=== PATIENT | female | born 1965 | race Caucasian/White ===

== ENCOUNTER 2020-01-05 07:10 | Outpatient (CLI) | payer OTHER, SELFPAY ==
[2020-01-05 08:27] LABS: Basophils Absolute Auto 0.1 K/mm3 (0.0-0.1); Basophils Percent Auto 0.8 % (0.2-1.2); Eosinophils Absolute Auto 0.3 K/mm3 (0-0.3); Eosinophils Percent Auto 3.6 % (0-4.4); Hematocrit 42.9 % (37.0-47.0); Hemoglobin 14.6 g/dL (12.0-15.0); Immature Granulocyte Absolute 0.04 K/mm3 (0.00-0.031); Immature Granulocyte Percent A 0.5 % (0-0.5); Lymphocytes Absolute Auto 1.48 K/mm3 (0.9-3.2); Lymphocytes Percent Auto 20.3 % (18.3-44.2); Mean Corpuscular Volume 91.1 fl (80-100); Mean Platelet Volume 9.1 fl (7.4-10.4); Monocytes Absolute Auto 0.7 K/mm3 (0.1-0.6); Monocytes Percent Auto 9.8 % (2.6-8.5); Neutrophils Absolute Auto 4.7 K/mm3 (1.3-6.7); Platelet Count Result 289 k/mm3 (150-375); Red Blood Count 4.71 M/mm3 (4.2-5.4); Red Cell Distribution Width 13.4 % (11.5-14.5); White Blood Count 7.3 K/mm3 (4.5-10.0)
[2020-01-05 09:54] LABS: Alanine Aminotransferase 33 U/L (4-35); Albumin Level 4.5 g/dL (3.5-5.1); Alkaline Phosphatase 62 U/L (38-126); Aspartate Amino Transferase 37 U/L (14-36); Bilirubin,Total 0.4 mg/dL (0.2-1.3); Blood Urea Nitrogen 16 mg/dL (7-17); Calcium 8.8 mg/dL (8.4-10.2); Carbon Dioxide 27 mmol/L (22-30); Chloride 102 mmol/L (98-107); Cholesterol 198 mg/dL (0-200); Estimated Glomerular Filt Rate 58; Glucose 126 mg/dL (65-105); HDL Direct 45 mg/dL; Magnesium 2.1 mg/dL (1.6-2.3); Potassium 4.5 mmol/L (3.4-5.0); Sodium 140 mmol/L (137-145); Triglycerides 129 mg/dL (<150)
[2020-01-05 10:05] LABS: LDL Cholesterol Direct 134 mg/dL
[2020-01-05 18:11] LABS: Iron 99 ug/dL (37-170)
[2020-01-05 18:25] LABS: Percent Iron Saturation 28 % (20-50)
[2020-01-05 18:27] LABS: Hemoglobin A1C 6.3 % (<5.7)
[2020-01-05 19:28] LABS: Vitamin D 25 Hydroxy 48.9 ng/mL
[2020-01-08 04:06] LABS: Ionized Calcium 4.7 mg/dL (4.8-5.6)
== END 2020-01-05 07:11 | disposition home or self-care (01) ==
LOC: ANHLAB 07:16
PROVIDERS: PCP Internal Medicine; Visit Provider Clinical Nurse Specialist
DX: Z00.00 Encounter for general adult medical examination without abnormal findings (principal); E11.9 Type 2 diabetes mellitus without complications; E55.9 Vitamin D deficiency, unspecified; E07.9 Disorder of thyroid, unspecified; Z13.220 Encounter for screening for lipoid disorders
CPT/HCPCS: 36415; 80053; 80061; 82306; 82330; 82728; 83036; 83540; 83550; 83735; 84439; 84443; 85025

== ENCOUNTER 2020-04-26 09:48 | Outpatient (CLI) | payer OTHER, SELFPAY ==
[2020-04-26 11:07] LABS: Alanine Aminotransferase 21 U/L (4-35); Albumin Level 4.3 g/dL (3.5-5.1); Alkaline Phosphatase 50 U/L (38-126); Anion Gap 8 mmol/L (8-16); Aspartate Amino Transferase 26 U/L (14-36); Bilirubin,Total 0.6 mg/dL (0.2-1.3); Blood Urea Nitrogen 18 mg/dL (7-17); Calcium 8.7 mg/dL (8.4-10.2); Carbon Dioxide 29 mmol/L (22-30); Chloride 104 mmol/L (98-107); Estimated Glomerular Filt Rate 58; Glucose 115 mg/dL (65-105); Potassium 4.4 mmol/L (3.4-5.0); Sodium 141 mmol/L (137-145)
[2020-04-26 11:26] LABS: Hemoglobin A1C 5.7 % (<5.7)
== END 2020-04-26 09:49 | disposition home or self-care (01) ==
LOC: ANHLAB 09:51
PROVIDERS: Internal Medicine Cardiovascular Disease; PCP Internal Medicine; Visit Provider Internal Medicine
DX: E78.5 Hyperlipidemia, unspecified (principal)
CPT/HCPCS: 36415; 80053; 83036

== ENCOUNTER 2020-05-10 10:05 | Outpatient (CLI) | payer OTHER, SELFPAY ==
[2020-05-10 10:54] LABS: Cholesterol 200 mg/dL (0-200); HDL Direct 43 mg/dL; Triglycerides 157 mg/dL (<150)
[2020-05-10 10:55] LABS: Albumin Level 4.3 g/dL (3.5-5.1); Anion Gap 8 mmol/L (8-16); Blood Urea Nitrogen 18 mg/dL (7-17); Calcium 8.7 mg/dL (8.4-10.2); Carbon Dioxide 25 mmol/L (22-30); Chloride 106 mmol/L (98-107); Estimated Glomerular Filt Rate > 60; Glucose 112 mg/dL (65-105); Phosphorus 4.2 mg/dL (2.5-4.5); Potassium 4.2 mmol/L (3.4-5.0); Sodium 139 mmol/L (137-145)
[2020-05-10 11:05] LABS: LDL Cholesterol Direct 126 mg/dL
[2020-05-10 11:27] LABS: Free T4 Free Thyroxine 1.27 ng/mL (0.78-2.19); Vitamin D 25 Hydroxy 54.1 ng/mL
[2020-05-13 04:55] LABS: Ionized Calcium 4.7 mg/dL (4.8-5.6)
== END 2020-05-10 10:06 | disposition home or self-care (01) ==
PROVIDERS: Internal Medicine Endocrinology, Diabetes & Metabolism; PCP Internal Medicine; Visit Provider Internal Medicine Cardiovascular Disease
DX: E78.5 Hyperlipidemia, unspecified (principal); E07.9 Disorder of thyroid, unspecified; E83.51 Hypocalcemia; E04.9 Nontoxic goiter, unspecified
CPT/HCPCS: 36415; 80061; 80069; 82306; 82330; 84439; 84443; 84481

== ENCOUNTER 2020-05-21 06:37 | Outpatient (CLI) | payer OTHER, SELFPAY ==
[2020-05-21 11:49] LABS: Creatinine Urine 65.2 mg/dL
[2020-05-21 12:22] LABS: Creatinine 24 Hour Urine 1.5 gm/24 (0.8-1.8); Total Volume 24 Hour Urine 2400 ml
[2020-05-24 20:44] LABS: Total Volume 2400 mL; Urine Calcium 8.5 mg/dL
== END 2020-05-21 06:38 | disposition home or self-care (01) ==
PROVIDERS: PCP Internal Medicine; Visit Provider Internal Medicine Endocrinology, Diabetes & Metabolism
DX: E07.9 Disorder of thyroid, unspecified (principal); E83.51 Hypocalcemia
CPT/HCPCS: 81050; 82340; 82570

== ENCOUNTER 2020-07-24 11:07 | Outpatient (CLI) | payer OTHER, SELFPAY ==
--- NOTE | ~2020-07-24 | XR_ITS ---
EXAMINATION: XR foot LT standing 2V, XR foot RT standing 2V DATE: 07/24/2020 12:06 INDICATION: Rheumatoid arthritis TECHNIQUE: 1. Standing dorsal plantar and lateral views of the left foot were obtained. 2. Standing dorsal plantar and lateral views of the right foot were obtained. COMPARISON: None. FINDINGS: Normal alignment at the left foot. Minimal right pes planus with slight flattening of the longitudina l arch. No fractures. Minimal to mild polyarticular osteoarthritis at a few bilateral tarsometatarsal , metatarsophalangeal and interphalangeal joints. Bilateral bunionettes with focal soft tissue swelli ng about the lateral margin of the heads of the bilateral fifth metatarsals. No cortical erosions or periosteal reaction. Small to moderate bilateral plantar calcaneal spurs and small right Achilles neha caneal spur. Soft tissues are otherwise unremarkable with no ankle joint effusions. IMPRESSION: 1. Minimal to mild polyarticular osteoarthritis at the bilateral mid and forefeet and bilateral calca osmani enthesophytes. 2. No erosions to suggest inflammatory arthritis such as rheumatoid. Reviewed, dictated and finalized at location A. WPF DEVELOPER IMPRESSION: 1. Minimal to mild polyarticular osteoarthritis at the bilateral mid and forefe et and bilateral calcaneal enthesophytes. 2. No erosions to suggest inflammatory arthritis such as rheumatoid.
--- NOTE | ~2020-07-24 | XR_ITS ---
EXAMINATION: XR hand BI arthritis min 3V DATE: 07/24/2020 12:05 INDICATION: Unspecified osteoarthritis, unspecified site TECHNIQUE: Posteroanterior, lateral, and oblique views of the left and of the right hands as well as a ballcatchers view of both hands were obtained. COMPARISON: None. FINDINGS: There is mild polyarticular osteoarthritis both hands involving the interphalangeal joints, metacarpo phalangeal joints, and the first carpometacarpal joints. No abnormal erosion is identified. Bone alig nment is normal. The soft tissues are unremarkable. There is no fracture. IMPRESSION: 1. Polyarticular osteoarthritis. Reviewed, dictated and finalized at location A. S REPRESENTATIVE GIRLS' APPAREL
--- NOTE | ~2020-07-24 | XR_ITS ---
EXAMINATION: XR knee RT min 4V DATE: 07/24/2020 12:05 INDICATION: Rheumatoid arthritis, unspecified. TECHNIQUE: 4 views of right knee were obtained. COMPARISON: None. FINDINGS: Bone alignment is normal. No fracture. There is moderate osteoarthritis of medial compartme nt and mild osteoarthritis of lateral and patellofemoral compartments. No knee joint effusion. IMPRESSION: 1. Moderate right knee osteoarthritis. Reviewed, dictated and finalized at location B. APPLICATION SUPPORT SPECIALIST
--- NOTE | ~2020-07-24 | XR_ITS ---
EXAMINATION: XR lumbar spine min 4V DATE: 07/24/2020 12:05 INDICATION: Rheumatoid arthritis TECHNIQUE: Anteroposterior, lateral, and bilateral oblique views of the lumbar spine, and cone-down l ateral view of the lumbosacral junction were obtained. COMPARISON: None. FINDINGS: There are 6 mm of anterolisthesis of L3 on L4 and L4 on L5. The vertebral body heights are maintained. There is mild loss of intervertebral disc space height at L4-5 and moderate loss of inter vertebral disc space height at L5-S1. No fracture is identified. There is moderate facet osteoarthrit is of the lower lumbar spine. Changes of mesh ventral hernia repair are noted. Surgical clips in the right upper quadrant are likely from prior cholecystectomy. The bowel gas pattern is normal. IMPRESSION: 1. Mild to moderate lumbar spondylosis without acute findings. Reviewed, dictated and finalized at location A. S DIRECTOR
[2020-07-24 11:40] LABS: Basophils Absolute Auto 0.1 K/mm3 (0.0-0.1); Basophils Percent Auto 0.9 % (0.2-1.2); Eosinophils Absolute Auto 0.2 K/mm3 (0-0.3); Eosinophils Percent Auto 2.7 % (0-4.4); Hematocrit 42.1 % (37.0-47.0); Hemoglobin 14.4 g/dL (12.0-15.0); Immature Granulocyte Absolute 0.03 K/mm3 (0.00-0.031); Immature Granulocyte Percent A 0.4 % (0-0.5); Lymphocytes Percent Auto 19.4 % (18.3-44.2); Mean Corpuscular HGB Conc 34.2 g/dl (32-36); Mean Corpuscular Hemoglobin 31.6 pg (26-34); Mean Corpuscular Volume 92.5 fl (80-100); Mean Platelet Volume 8.8 fl (7.4-10.4); Monocytes Absolute Auto 0.6 K/mm3 (0.1-0.6); Monocytes Percent Auto 8.2 % (2.6-8.5); Neutrophils Absolute Auto 4.6 K/mm3 (1.3-6.7); Neutrophils Percent Auto 68.4 % (45.5-73.1); Platelet Count Result 251 k/mm3 (150-375); Red Blood Count 4.55 M/mm3 (4.2-5.4); Red Cell Distribution Width 13.3 % (11.5-14.5); White Blood Count 6.7 K/mm3 (4.5-10.0)
[2020-07-24 11:44] LABS: Add Urine Microscopic? NO; Appearance Urine Clear (Clear); Bilirubin Urine Negative (Negative); Blood Urine Negative (Negative); Color Urine Straw (Yellow); Glucose Urine UA Negative (Negative); Ketones Urine Negative (Negative); Leukocyte Esterase Ur Negative LEU/UL (Negative); Nitrate Urine Negative (Negative); Protein Urine Negative (Negative); Specific Grav Ur 1.009 (1.001-1.035); Urobilinogen Urine Negative mg/dL (<2.0)
[2020-07-24 11:58] LABS: Alanine Aminotransferase 23 U/L (4-35); Albumin Level 4.6 g/dL (3.5-5.1); Alkaline Phosphatase 52 U/L (38-126); Anion Gap 7 mmol/L (8-16); Aspartate Amino Transferase 31 U/L (14-36); Bilirubin,Total 0.6 mg/dL (0.2-1.3); Blood Urea Nitrogen 17 mg/dL (7-17); CRP 0.9 mg/dL (<1.0); Calcium 9.3 mg/dL (8.4-10.2); Carbon Dioxide 32 mmol/L (22-30); Chloride 102 mmol/L (98-107); Estimated Glomerular Filt Rate > 60; Glucose 103 mg/dL (65-105); Potassium 4.7 mmol/L (3.4-5.0); Sodium 141 mmol/L (137-145); Uric Acid 6.4 mg/dL (2.5-7.5)
[2020-07-24 12:31] LABS: Rheumatoid Factor > 120.0 IU/ML (<12)
[2020-07-24 12:58] LABS: Vitamin D 25 Hydroxy 56.3 ng/mL
[2020-07-24 13:13] LABS: Erythrocyte Sedimentation Rate 22 mm/hr (0-20)
[2020-07-24 13:14] LABS: Hepatitis B Surface Antigen Negative (Negative)
[2020-07-24 13:37] LABS: Hepatitis B Surface Anti Res Positive; Hepatitis C Virus Antibody Negative (Negative)
[2020-07-26 22:13] LABS: Anti Cyclic Citrullinated Pept >250 Units (<20)
[2020-07-29 13:37] LABS: Anti Nuclear Antibody Titer >=1:1280 (Negative)
== END 2020-07-24 11:08 | disposition home or self-care (01) ==
PROVIDERS: PCP Internal Medicine; Visit Provider Internal Medicine
DX: M06.9 Rheumatoid arthritis, unspecified (principal); M19.041 Primary osteoarthritis, right hand; M19.042 Primary osteoarthritis, left hand; M47.896 Other spondylosis, lumbar region; M17.11 Unilateral primary osteoarthritis, right knee
CPT/HCPCS: 36415; 72110; 73130; 73564; 73620; 80053; 81003; 82306; 84550; 85025; 85652; 86038; 86039; 86140; 86200; 86430; 86480; 86706; 86803; 87340

== ENCOUNTER 2020-08-21 10:02 | Outpatient (CLI) | payer OTHER, SELFPAY ==
[2020-08-21 10:29] LABS: Alanine Aminotransferase 21 U/L (4-35); Albumin Level 4.1 g/dL (3.5-5.1); Alkaline Phosphatase 49 U/L (38-126); Anion Gap 6 mmol/L (8-16); Aspartate Amino Transferase 26 U/L (14-36); Bilirubin,Total 0.4 mg/dL (0.2-1.3); Blood Urea Nitrogen 16 mg/dL (7-17); Calcium 8.2 mg/dL (8.4-10.2); Carbon Dioxide 31 mmol/L (22-30); Chloride 104 mmol/L (98-107); Cholesterol 156 mg/dL (0-200); Estimated Glomerular Filt Rate > 60; Glucose 113 mg/dL (65-105); HDL Direct 45 mg/dL; Potassium 4.1 mmol/L (3.4-5.0); Sodium 141 mmol/L (137-145); Triglycerides 70 mg/dL (<150)
[2020-08-21 10:40] LABS: LDL Cholesterol Direct 99 mg/dL
== END 2020-08-21 10:03 | disposition home or self-care (01) ==
PROVIDERS: PCP Internal Medicine; Visit Provider Internal Medicine Cardiovascular Disease
DX: I21.9 Acute myocardial infarction, unspecified (principal); I10 Essential (primary) hypertension; I25.10 Atherosclerotic heart disease of native coronary artery without angina pectoris
CPT/HCPCS: 36415; 80053; 80061

== ENCOUNTER 2020-10-03 07:35 | Outpatient (CLI) | payer OTHER, SELFPAY ==
[2020-10-03 07:56] LABS: Albumin Level 4.3 g/dL (3.5-5.1); Anion Gap 9 mmol/L (8-16); Blood Urea Nitrogen 16 mg/dL (7-17); Calcium 8.2 mg/dL (8.4-10.2); Carbon Dioxide 31 mmol/L (22-30); Chloride 103 mmol/L (98-107); Estimated Glomerular Filt Rate 57; Glucose 130 mg/dL (65-105); Phosphorus 4.8 mg/dL (2.5-4.5); Potassium 4.5 mmol/L (3.4-5.0); Sodium 143 mmol/L (137-145)
[2020-10-03 09:07] LABS: Vitamin D 25 Hydroxy 53.1 ng/mL
== END 2020-10-03 07:36 | disposition home or self-care (01) ==
PROVIDERS: PCP Internal Medicine; Visit Provider Internal Medicine Endocrinology, Diabetes & Metabolism
DX: E89.2 Postprocedural hypoparathyroidism (principal); E89.0 Postprocedural hypothyroidism
CPT/HCPCS: 36415; 80069; 82306; 84439; 84443

== ENCOUNTER 2021-02-26 06:38 | Outpatient (CLI) | payer OTHER, SELFPAY ==
[2021-02-26 07:37] LABS: Alanine Aminotransferase 24 U/L (4-35); Albumin Level 4.4 g/dL (3.5-5.1); Alkaline Phosphatase 55 U/L (38-126); Anion Gap 10 mmol/L (8-16); Aspartate Amino Transferase 30 U/L (14-36); Bilirubin,Total 0.6 mg/dL (0.2-1.3); Blood Urea Nitrogen 16 mg/dL (7-17); Calcium 8.6 mg/dL (8.4-10.2); Carbon Dioxide 26 mmol/L (22-30); Chloride 105 mmol/L (98-107); Cholesterol 172 mg/dL (0-200); Estimated Glomerular Filt Rate 57; Glucose 127 mg/dL (65-105); HDL Direct 48 mg/dL; Potassium 4.4 mmol/L (3.4-5.0); Sodium 141 mmol/L (137-145); Triglycerides 157 mg/dL (<150)
[2021-02-26 07:47] LABS: LDL Cholesterol Direct 95 mg/dL
== END 2021-02-26 06:39 | disposition home or self-care (01) ==
PROVIDERS: PCP Internal Medicine; Visit Provider Internal Medicine Cardiovascular Disease
DX: E78.5 Hyperlipidemia, unspecified (principal); I10 Essential (primary) hypertension
CPT/HCPCS: 36415; 80053; 80061

== ENCOUNTER 2021-04-02 09:33 | Outpatient (CLI) | payer OTHER, SELFPAY ==
[2021-04-02 11:03] LABS: Basophils Absolute Auto 0.1 K/mm3 (0.0-0.1); Basophils Percent Auto 0.9 % (0.2-1.2); Eosinophils Absolute Auto 0.2 K/mm3 (0-0.3); Eosinophils Percent Auto 3.4 % (0-4.4); Hematocrit 42.5 % (37.0-47.0); Hemoglobin 14.2 g/dL (12.0-15.0); Immature Granulocyte Absolute 0.04 K/mm3 (0.00-0.031); Immature Granulocyte Percent A 0.6 % (0-0.5); Lymphocytes Absolute Auto 1.15 K/mm3 (0.9-3.2); Lymphocytes Percent Auto 16.8 % (18.3-44.2); Mean Corpuscular HGB Conc 33.4 g/dl (32-36); Mean Corpuscular Hemoglobin 31.4 pg (26-34); Monocytes Absolute Auto 0.7 K/mm3 (0.1-0.6); Monocytes Percent Auto 10.2 % (2.6-8.5); Neutrophils Absolute Auto 4.7 K/mm3 (1.3-6.7); Neutrophils Percent Auto 68.1 % (45.5-73.1); Platelet Count Result 253 k/mm3 (150-375); Red Blood Count 4.52 M/mm3 (4.2-5.4); Red Cell Distribution Width 13.4 % (11.5-14.5); White Blood Count 6.9 K/mm3 (4.5-10.0)
[2021-04-02 11:28] LABS: Alanine Aminotransferase 26 U/L (4-35); Albumin Level 4.5 g/dL (3.5-5.1); Alkaline Phosphatase 53 U/L (38-126); Anion Gap 8 mmol/L (8-16); Aspartate Amino Transferase 30 U/L (14-36); Bilirubin,Total 0.3 mg/dL (0.2-1.3); Blood Urea Nitrogen 15 mg/dL (7-17); CRP 0.9 mg/dL (<1.0); Calcium 8.2 mg/dL (8.4-10.2); Carbon Dioxide 28 mmol/L (22-30); Chloride 102 mmol/L (98-107); Estimated Glomerular Filt Rate > 60; Glucose 115 mg/dL (65-110); Potassium 4.4 mmol/L (3.4-5.0); Sodium 138 mmol/L (137-145)
== END 2021-04-02 09:34 | disposition home or self-care (01) ==
LOC: ANHLAB 09:36
PROVIDERS: PCP Internal Medicine; Visit Provider Internal Medicine
DX: M17.0 Bilateral primary osteoarthritis of knee (principal); M05.79 Rheumatoid arthritis with rheumatoid factor of multiple sites without organ or systems involvement; M54.5 Low back pain; G89.29 Other chronic pain
CPT/HCPCS: 36415; 80053; 85025; 86140

== ENCOUNTER 2021-04-30 09:54 | Outpatient (CLI) | payer OTHER, SELFPAY ==
[2021-04-30 10:39] LABS: Basophils Absolute Auto 0.1 K/mm3 (0.0-0.1); Basophils Percent Auto 0.7 % (0.2-1.2); Eosinophils Absolute Auto 0.2 K/mm3 (0-0.3); Eosinophils Percent Auto 2.6 % (0-4.4); Hematocrit 44.3 % (37.0-47.0); Hemoglobin 14.9 g/dL (12.0-15.0); Immature Granulocyte Absolute 0.03 K/mm3 (0.00-0.031); Immature Granulocyte Percent A 0.4 % (0-0.5); Lymphocytes Percent Auto 16.5 % (18.3-44.2); Mean Corpuscular HGB Conc 33.6 g/dl (32-36); Mean Corpuscular Hemoglobin 31.4 pg (26-34); Mean Corpuscular Volume 93.3 fl (80-100); Mean Platelet Volume 8.5 fl (7.4-10.4); Monocytes Absolute Auto 0.7 K/mm3 (0.1-0.6); Monocytes Percent Auto 9.7 % (2.6-8.5); Neutrophils Absolute Auto 5.1 K/mm3 (1.3-6.7); Neutrophils Percent Auto 70.1 % (45.5-73.1); Platelet Count Result 259 k/mm3 (150-375); Red Blood Count 4.75 M/mm3 (4.2-5.4); Red Cell Distribution Width 13.7 % (11.5-14.5); White Blood Count 7.3 K/mm3 (4.5-10.0)
[2021-04-30 10:56] LABS: Alanine Aminotransferase 26 U/L (4-35); Albumin Level 4.7 g/dL (3.5-5.1); Alkaline Phosphatase 57 U/L (38-126); Anion Gap 13 mmol/L (8-16); Aspartate Amino Transferase 30 U/L (14-36); Bilirubin,Total 0.5 mg/dL (0.2-1.3); Blood Urea Nitrogen 19 mg/dL (7-17); Calcium 9.1 mg/dL (8.4-10.2); Carbon Dioxide 25 mmol/L (22-30); Chloride 104 mmol/L (98-107); Cholesterol 190 mg/dL (0-200); Estimated Glomerular Filt Rate 57; Glucose 133 mg/dL (65-110); HDL Direct 53 mg/dL; Potassium 4.8 mmol/L (3.4-5.0); Sodium 142 mmol/L (137-145); Triglycerides 133 mg/dL (<150)
[2021-04-30 11:07] LABS: LDL Cholesterol Direct 106 mg/dL
[2021-04-30 11:26] LABS: Vitamin D 25 Hydroxy 63.9 ng/mL
[2021-04-30 17:23] LABS: Hemoglobin A1C 6.2 % (<5.7)
== END 2021-04-30 09:55 | disposition home or self-care (01) ==
PROVIDERS: PCP Internal Medicine; Visit Provider Nurse Practitioner
DX: E03.9 Hypothyroidism, unspecified (principal); I10 Essential (primary) hypertension; E78.5 Hyperlipidemia, unspecified; E55.9 Vitamin D deficiency, unspecified
CPT/HCPCS: 36415; 80053; 80061; 82306; 83036; 84443; 85025

== ENCOUNTER 2021-06-06 08:11 | Outpatient (CLI) | payer OTHER, SELFPAY ==
--- NOTE | ~2021-06-06 | MM_ITS ---
EXAMINATION: MM screening yudith BI w emily HISTORY: Screening mammogram TECHNIQUE: Craniocaudal and mediolateral oblique 3-D tomosynthesis images were obtained and synthetic 2-D images were generated. CAD analysis was submitted and interpreted. COMPARISON: No prior mammogram is available for comparison at this institution. BREAST PARENCHYMAL COMPOSITION: The breasts are almost entirely fatty. FINDINGS: There is no evidence of suspicious mass, calcification, or architectural distortion to sugg est malignancy in either breast. There has been no suspicious interval change. IMPRESSION: 1. No mammographic evidence of malignancy. 2. Recommend routine screening mammography in one year. BI-RADS Category 1: Negative Reviewed, dictated and finalized at location C.
--- NOTE | ~2021-06-06 | CT_ITS ---
EXAMINATION: CT lung screening DATE: 06/06/2021 09:08 INDICATION: Former smoker. TECHNIQUE: Computed tomography (CT) of the chest was performed without intravenous contrast. The dose -length product was 230.31 mGy-cm. Automated exposure control and iterative reconstruction technique were employed. COMPARISON: Chest dated 10/26/2019 FINDINGS: Moderate size hiatal hernia. There are cholecystectomy clips. No significant pleural or per icardial effusion. Heart size is normal. There is atherosclerosis of the aorta and coronary arteries. There is emphysema. No endobronchial lesions. There is a 4 mm right lower lobe nodule, image 76. The re is a 7 mm left apical nodule, image 21. There is a calcified nodule superior segment right lower l obe, consistent with chronic granulomatous disease. Mild thoracic spondylosis. No focal consolidation to suggest pneumonia. No pneumothorax. IMPRESSION: 1. Lung-RADS category 3: Probably benign. Further evaluation is recommended with noncontrast low-dose chest CT in 6 months. Reviewed, dictated and finalized at location B. IMPRESSION: 1. Lung-RADS category 3: Probably benign. Further evaluation is recommended wit h noncontrast low-dose chest CT in 6 months.
== END 2021-06-06 08:12 | disposition home or self-care (01) ==
LOC: ANHIMG 08:13
PROVIDERS: PCP Internal Medicine; Visit Provider Nurse Practitioner
DX: Z12.31 Encounter for screening mammogram for malignant neoplasm of breast (principal); Z87.891 Personal history of nicotine dependence; R91.8 Other nonspecific abnormal finding of lung field
CPT/HCPCS: 71271; 77063; 77067

== ENCOUNTER 2021-06-18 21:01 | Emergency (ER) | payer OTHER, SELFPAY ==
--- NOTE | ~2021-06-18 | CT_ITS ---
EXAMINATION: CT abdomen pelvis wo con DATE: 06/18/2021 23:39 INDICATION: Right flank pain TECHNIQUE: Computed tomography (CT) of the abdomen and pelvis was performed without intravenous contr ast. Automated exposure control and iterative reconstruction technique were employed. Exam dose: 141 8.32 mGy-cm total exam DLP. COMPARISON: None. FINDINGS: Approximately 3 mm 4 mm nonspecific right lower lobe pulmonary nodules are noted (series 4 images 6 a nd 8). Occasional middle lobe calcified pulmonary granulomas. Normal heart size. No pericardial or pleural effusion. Mild to moderate sliding hiatal hernia. Status post cholecystectomy. The liver, spleen, pancreas, and adrenal glands and kidneys are unremarkable on this limited noncontr ast examination. No bile duct or pancreatic duct dilatation. No urinary tract calculus or hydroureteronephrosis. The urinary bladder, uterus and adnexal areas are unremarkable. There is calcification but normal caliber of the abdominal aorta and iliac arteries. No intraperitone al or retroperitoneal or pelvic mass lesion or adenopathy or ascites. Diverticulosis of left and right colon; no CT evidence of diverticulitis. No bowel obstruction, bowel wall thickening, pneumatosis or intraperitoneal free air. Status post ventral abdominal and pelvic wall mesh repair. Transitional lumbosacral vertebra. Degenerative changes of the lower thoracic spine and lumbar spine, particularly the lumbar apophyseal joints, with associated grade 1 anterolisthesis at L4-5 and L5-S1. No suspicious osteolytic or osteoblastic lesions are noted. Bilateral hip osteoarthritis. IMPRESSION: No urinary tract calculus or hydroureteronephrosis Status post cholecystectomy Mild to moderate sliding hiatal hernia Diverticulosis of the colon; no CT evidence of diverticulitis Status post ventral abdominal and pelvic wall mesh repair Reviewed, dictated and finalized at Location A. Reviewed, dictated and finalized at location A.
[2021-06-18 21:20] VITALS: BP 143/73; PULSE 73; RESP 16; TEMP 36.7; O2SAT 99
[2021-06-18 23:26] LABS: Add Urine Microscopic? NO; Appearance Urine Clear (Clear); Bilirubin Urine Negative (Negative); Blood Urine Negative (Negative); Color Urine Straw (Yellow); Glucose Urine UA Negative (Negative); Ketones Urine Negative (Negative); Leukocyte Esterase Ur Negative LEU/UL (Negative); Nitrate Urine Negative (Negative); Protein Urine Negative (Negative); Specific Grav Ur 1.005 (1.001-1.035); Urobilinogen Urine Negative mg/dL (<2.0)
--- NOTE | 2021-06-18 23:42 | PC.NURSE ---
Pt to CT at this time.
[2021-06-18 23:50] VITALS: BP 140/79; PULSE 71; RESP 18; O2SAT 100
[2021-06-18] MEDS: KETOROLAC 15 MG/ML VIAL (*BKC) IV PUSH (23:50)
[2021-06-18] MEDS: ONDANSETRON INJ 4 MG/2 ML VIAL IV PUSH (23:50)
[2021-06-18] MEDS: SODIUM CHLORIDE 0.9% IV 1,000 ML 999 ML IV CONT (23:51)
[2021-06-19 00:04] LABS: Basophils Absolute Auto 0.1 K/mm3 (0.0-0.1); Basophils Percent Auto 0.6 % (0.2-1.2); Eosinophils Absolute Auto 0.2 K/mm3 (0-0.3); Eosinophils Percent Auto 2.5 % (0-4.4); Hematocrit 40.1 % (37.0-47.0); Hemoglobin 13.6 g/dL (12.0-15.0); Immature Granulocyte Absolute 0.04 K/mm3 (0.00-0.031); Immature Granulocyte Percent A 0.5 % (0-0.5); Lymphocytes Absolute Auto 1.33 K/mm3 (0.9-3.2); Lymphocytes Percent Auto 15.1 % (18.3-44.2); Mean Corpuscular HGB Conc 33.9 g/dl (32-36); Mean Corpuscular Hemoglobin 33.3 pg (26-34); Mean Platelet Volume 8.8 fl (7.4-10.4); Monocytes Absolute Auto 0.8 K/mm3 (0.1-0.6); Monocytes Percent Auto 8.9 % (2.6-8.5); Neutrophils Absolute Auto 6.4 K/mm3 (1.3-6.7); Neutrophils Percent Auto 72.4 % (45.5-73.1); Platelet Count Result 262 k/mm3 (150-375); Red Blood Count 4.09 M/mm3 (4.2-5.4); White Blood Count 8.8 K/mm3 (4.5-10.0)
[2021-06-19 00:48] LABS: Anion Gap 10 mmol/L (8-16); Blood Urea Nitrogen 18 mg/dL (7-17); Calcium 8.5 mg/dL (8.4-10.2); Carbon Dioxide 28 mmol/L (22-30); Chloride 102 mmol/L (98-107); Estimated CRCL calculation 78 ml/min; Estimated Glomerular Filt Rate > 60; Glucose 153 mg/dL (65-110); Potassium 4.6 mmol/L (3.4-5.0); Sodium 140 mmol/L (137-145)
[2021-06-19 01:30] VITALS: BP 133/74; PULSE 77; RESP 20; O2SAT 97
--- NOTE | 2021-06-19 01:36 | ED.BACK ---
HPI - Back Pain/Injury General Chief Complaint: Back Pain/Injury Stated Complaint: back pain Time Seen by Provider: 06/18/21 23:24 Source: patient Mode of arrival: ambulatory Limitations: no limitations History of Present Illness HPI Narrative: 55 year old female with PMH outlined below complain of R flank pain for 3 days radiating RLQ and lower back. States history of kidney stones. No fever, no vomiting, no nausea. Pain worse with bending and twisting, irmpoves with rest. Tramadol at home without relief. No focal weakness no saddle paresthesia, no incontinence, no trauma to the area. No other complaints, ambulating with usual gait. Pain described as sharp, colicky and constant. Related Data Home Medications Medication Instructions Recorded Confirmed aspirin 81 mg tablet,delayed 81 mg PO DAILY 12/29/19 05/09/21 release calcium carbonate 500 mg calcium 1,000 mg PO BID tablet 12/29/19 05/09/21 (1,250 mg) tablet cholecalciferol (vitamin D3) 25 25 mcg PO BID cap 12/29/19 05/09/21 mcg (1,000 unit) capsule ferrous gluconate 270 mg (27 mg 270 mg PO DAILY 12/29/19 05/09/21 iron) tablet loratadine 10 mg tablet 10 mg PO DAILY 12/29/19 05/09/21 magnesium oxide 800 mg PO BID cap 12/29/19 05/09/21 omeprazole magnesium 20 mg 20 mg PO DAILY 12/29/19 05/09/21 tablet,delayed release multivitamin 1 cap PO QAM 02/27/20 05/09/21 fluticasone propionate 50 1 spray INTRANASAL DAILY 08/30/20 05/09/21 mcg/actuation nasal spray,suspension celecoxib 200 mg capsule 200 mg PO DAILY 05/09/21 05/09/21 tramadol 50 mg tablet 50 mg PO TID PRN tablet 05/09/21 05/09/21 Allergies Allergy/AdvReac Type Severity Reaction Status Date / Time morphine Allergy Unknown Vomiting Verified 06/20/21 13:07 tetracycline Allergy Unknown Rash Verified 06/20/21 13:07 [id number] Reductase AdvReac Mild Muscle Pain Verified 06/20/21 13:07 Inhibitor Review of Systems Review of Systems: ROS: General: afebrile, answering all questions appropriately, NAD HEAD: normocephalic atraumatic ENT: no dental pain or injury, no sore throat,no difficulty swallowing Neck: no neck stiffness, no injury Resp: No shortness of breath, no cough, no wheezing CV: no chest pain, no palpitations, no lower extremity edema Abd: no vomiting, did have nausea, no abdominal pain : right sided flank pain, no dysuria, no urinary retention, no incontinence MSK; no joint pain, no myalgias, does complain of lower back pain Skin: no rash, no lesions, no wounds Neuro: no syncope, no headache, no focal weakness, no paresthesias All systems reviewed & are unremarkable except as noted in HPI and below (HPI and ROS) [facility] Past Medical History Medical History (Updated 07/25/21 @ 15:10 by Lynda Doherty MD) Abdominal hernia Anemia Angina at rest Arthritis Atrial fibrillation Back pain delivery delivered DM w/o complication type II Hearing loss Heart attack Heart disease History of miscarriage x2 Hypercalcemia Kidney disease Renal disease Sleep apnea Thyroid disease Thyroid disorder Vision loss Surgical History Surgical History Delivery by section H/O dilation and curettage H/O heart artery stent H/O hernia repair History of cholecystectomy History of cholecystectomy History of dilatation and curettage History of thyroidectomy Family History Family History Mother Heart disease Father Diabetes mellitus Heart disease Grandparent Heart attack Rheumatoid arthritis Sibling Diabetes mellitus Heart attack COPD (chronic obstructive pulmonary disease) Lung cancer Acute myocardial infarction Other Family history of alcoholism Family history of arthritis Family history of cardiovascular disease Family history of hearing loss Hypertension Social History Social History (Reviewed 06/20/21 @ 13:09
[2021-06-19] MEDS: CYCLOBENZAPRINE HCL 10 MG TABLET PO (01:54)
== END 2021-06-19 01:58 | disposition home or self-care (01) ==
PROVIDERS: Emergency Provider Emergency Medicine; PCP Internal Medicine
DX: S39.012A Strain of muscle, fascia and tendon of lower back, initial encounter (principal); I48.91 Unspecified atrial fibrillation; E11.9 Type 2 diabetes mellitus without complications; I25.2 Old myocardial infarction; I51.9 Heart disease, unspecified; N28.9 Disorder of kidney and ureter, unspecified; E07.9 Disorder of thyroid, unspecified; M19.90 Unspecified osteoarthritis, unspecified site; E89.0 Postprocedural hypothyroidism; G47.30 Sleep apnea, unspecified; Z79.82 Long term (current) use of aspirin; Z95.5 Presence of coronary angioplasty implant and graft; K44.9 Diaphragmatic hernia without obstruction or gangrene; K57.90 Diverticulosis of intestine, part unspecified, without perforation or abscess without bleeding; X58.XXXA Exposure to other specified factors, initial encounter
CPT/HCPCS: 36415; 74176; 80048; 81003; 85025; 96361; 96374; 96375; 99284; A9270; J1885; J2405; J7030

== ENCOUNTER 2021-07-04 09:45 | Outpatient (CLI) | payer OTHER, SELFPAY ==
[2021-07-04 11:06] LABS: Hematocrit 40.5 % (37.0-47.0); Hemoglobin 13.9 g/dL (12.0-15.0); Mean Corpuscular HGB Conc 34.3 g/dl (32-36); Mean Corpuscular Hemoglobin 32.6 pg (26-34); Mean Corpuscular Volume 95.1 fl (80-100); Mean Platelet Volume 8.7 fl (7.4-10.4); Platelet Count Result 248 k/mm3 (150-375); Red Blood Count 4.26 M/mm3 (4.2-5.4); Red Cell Distribution Width 13.7 % (11.5-14.5); White Blood Count 9.6 K/mm3 (4.5-10.0)
[2021-07-04 11:19] LABS: Alanine Aminotransferase 22 U/L (4-35); Albumin Level 4.5 g/dL (3.5-5.1); Alkaline Phosphatase 51 U/L (38-126); Anion Gap 10 mmol/L (8-16); Aspartate Amino Transferase 26 U/L (14-36); Bilirubin,Total 0.5 mg/dL (0.2-1.3); Blood Urea Nitrogen 16 mg/dL (7-17); CRP 1.3 mg/dL (<1.0); Calcium 8.5 mg/dL (8.4-10.2); Carbon Dioxide 28 mmol/L (22-30); Chloride 100 mmol/L (98-107); Estimated Glomerular Filt Rate > 60; Glucose 119 mg/dL (65-110); Potassium 4.6 mmol/L (3.4-5.0); Sodium 138 mmol/L (137-145)
== END 2021-07-04 09:46 | disposition home or self-care (01) ==
PROVIDERS: PCP Internal Medicine; Visit Provider Internal Medicine
DX: M05.89 Other rheumatoid arthritis with rheumatoid factor of multiple sites (principal)
CPT/HCPCS: 36415; 80053; 85027; 86140

== ENCOUNTER 2021-09-12 10:30 | Outpatient (CLI) | payer OTHER, SELFPAY ==
[2021-09-12 11:53] LABS: Alanine Aminotransferase 27 U/L (4-35); Albumin Level 4.4 g/dL (3.5-5.1); Alkaline Phosphatase 53 U/L (38-126); Anion Gap 10 mmol/L (8-16); Aspartate Amino Transferase 34 U/L (14-36); Bilirubin,Total 0.5 mg/dL (0.2-1.3); Blood Urea Nitrogen 20 mg/dL (7-17); Calcium 8.2 mg/dL (8.4-10.2); Carbon Dioxide 27 mmol/L (22-30); Chloride 103 mmol/L (98-107); Cholesterol 172 mg/dL (0-200); Estimated Glomerular Filt Rate > 60; Glucose 108 mg/dL (65-110); HDL Direct 42 mg/dL; Potassium 4.1 mmol/L (3.4-5.0); Sodium 140 mmol/L (137-145); Triglycerides 124 mg/dL (<150)
[2021-09-12 12:07] LABS: LDL Cholesterol Direct 104 mg/dL
[2021-09-12 13:10] LABS: Hemoglobin A1C 6.5 % (<5.7)
== END 2021-09-12 10:31 | disposition home or self-care (01) ==
PROVIDERS: PCP Internal Medicine; Referring Provider Nurse Practitioner; Visit Provider Internal Medicine Cardiovascular Disease
DX: R73.9 Hyperglycemia, unspecified (principal); E78.5 Hyperlipidemia, unspecified; I10 Essential (primary) hypertension; Z78.0 Asymptomatic menopausal state
CPT/HCPCS: 36415; 80053; 80061; 83036

== ENCOUNTER 2021-10-15 11:43 | Outpatient (CLI) | payer OTHER, SELFPAY ==
[2021-10-15 12:26] LABS: Basophils Percent Auto 0.5 % (0.2-1.2); Eosinophils Absolute Auto 0.1 K/mm3 (0-0.3); Eosinophils Percent Auto 1.9 % (0-4.4); Hematocrit 40.6 % (37.0-47.0); Hemoglobin 13.7 g/dL (12.0-15.0); Immature Granulocyte Absolute 0.02 K/mm3 (0.00-0.031); Immature Granulocyte Percent A 0.3 % (0-0.5); Lymphocytes Percent Auto 15.5 % (18.3-44.2); Mean Corpuscular HGB Conc 33.7 g/dl (32-36); Mean Corpuscular Hemoglobin 33.4 pg (26-34); Mean Platelet Volume 8.9 fl (7.4-10.4); Monocytes Absolute Auto 0.6 K/mm3 (0.1-0.6); Monocytes Percent Auto 10.3 % (2.6-8.5); Neutrophils Absolute Auto 4.2 K/mm3 (1.3-6.7); Neutrophils Percent Auto 71.5 % (45.5-73.1); Platelet Count Result 237 k/mm3 (150-375); Red Cell Distribution Width 15.1 % (11.5-14.5); White Blood Count 5.8 K/mm3 (4.5-10.0)
[2021-10-15 12:38] LABS: Alanine Aminotransferase 29 U/L (4-35); Albumin Level 4.6 g/dL (3.5-5.1); Alkaline Phosphatase 47 U/L (38-126); Anion Gap 9 mmol/L (8-16); Aspartate Amino Transferase 33 U/L (14-36); Bilirubin,Total 0.6 mg/dL (0.2-1.3); Blood Urea Nitrogen 21 mg/dL (7-17); CRP 0.6 mg/dL (<1.0); Calcium 8.5 mg/dL (8.4-10.2); Carbon Dioxide 25 mmol/L (22-30); Chloride 104 mmol/L (98-107); Estimated Glomerular Filt Rate > 60; Glucose 110 mg/dL (65-110); Potassium 4.4 mmol/L (3.4-5.0); Sodium 138 mmol/L (137-145)
== END 2021-10-15 11:44 | disposition home or self-care (01) ==
PROVIDERS: PCP Internal Medicine; Visit Provider Internal Medicine
DX: M06.9 Rheumatoid arthritis, unspecified (principal); M05.89 Other rheumatoid arthritis with rheumatoid factor of multiple sites
CPT/HCPCS: 36415; 80053; 85025; 86140

== ENCOUNTER 2021-11-12 14:00 | Outpatient (RCR) | payer OTHER, SELFPAY ==
[2021-11-12 12:57] VITALS: BMI 40.4
[2021-11-12 13:13] VITALS: BMI 40.4
== END 2022-01-27 09:19 | disposition home or self-care (01) ==
LOC: ANHDMC 14:00
PROVIDERS: PCP Internal Medicine; Visit Provider Internal Medicine Endocrinology, Diabetes & Metabolism
DX: E11.9 Type 2 diabetes mellitus without complications (principal); Z71.3 Dietary counseling and surveillance; Z71.89 Other specified counseling
CPT/HCPCS: 97802; G0108

== ENCOUNTER 2021-12-13 15:29 | Outpatient (CLI) | payer OTHER, SELFPAY ==
--- NOTE | ~2021-12-13 | CT_ITS ---
EXAMINATION: CT diagnostic chest wo con DATE: 12/13/2021 15:47 INDICATION: Solitary pulmonary nodule TECHNIQUE: Computed tomography (CT) of the chest was performed without intravenous contrast. The dose -length product (DLP) was 196.29 mGy-cm. Automated exposure control and iterative reconstruction tech [employer] were employed. COMPARISON: 06/06/2021 FINDINGS: There is mild emphysema. There is a 6 mm nodule of the left upper lung zone on image 32. Th ere are stable right lower lobe nodules measuring up to 5 mm. There is mild atelectasis. There is no pleural effusion or pneumothorax. There is a moderate size sliding hiatal hernia. No pathologically e nlarged thoracic lymph nodes are identified. The heart size is normal. Calcified coronary artery athe rosclerosis is noted. Stable triangular soft tissue density of the anterior mediastinum likely reflec ts residual thymus. There is mild thoracic spondylosis. IMPRESSION: 1. Lung-RADS category 2: Benign appearance or behavior. Continue annual screening with noncontrast lo w-dose chest CT in 12 months. Reviewed, dictated and finalized at location A. IMPRESSION: 1. Lung-RADS category 2: Benign appearance or behavior. Continue annual screeni ng with noncontrast low-dose chest CT in 12 months.
== END 2021-12-13 15:30 | disposition home or self-care (01) ==
LOC: ANHIMG 15:34
PROVIDERS: PCP Internal Medicine; Visit Provider Nurse Practitioner
DX: R91.1 Solitary pulmonary nodule (principal)
CPT/HCPCS: 71250

== ENCOUNTER 2021-12-19 10:12 | Outpatient (CLI) | payer OTHER, SELFPAY ==
[2021-12-19 10:39] LABS: Hemoglobin A1C 5.6 % (<5.7)
[2021-12-19 11:18] LABS: Thyroid Stimulating Hormone 0.494 uIU/mL (0.465-4.680)
== END 2021-12-19 10:13 | disposition home or self-care (01) ==
LOC: ANHLAB 10:14
PROVIDERS: PCP Internal Medicine; Visit Provider Internal Medicine Endocrinology, Diabetes & Metabolism
DX: E11.9 Type 2 diabetes mellitus without complications (principal); E89.0 Postprocedural hypothyroidism; E89.2 Postprocedural hypoparathyroidism; Z71.3 Dietary counseling and surveillance
CPT/HCPCS: 36415; 83036; 84439; 84443

== ENCOUNTER 2022-01-23 16:43 | Outpatient (CLI) | payer OTHER, SELFPAY ==
[2022-01-23 17:33] LABS: Alanine Aminotransferase 21 U/L (6-35); Aspartate Amino Transferase 28 U/L (14-36)
== END 2022-01-23 16:44 | disposition home or self-care (01) ==
LOC: ANHLAB 16:44
PROVIDERS: PCP Internal Medicine; Visit Provider Podiatrist Foot & Ankle Surgery
DX: B35.1 Tinea unguium (principal)
CPT/HCPCS: 36415; 84450; 84460

== ENCOUNTER 2022-01-30 11:00 | Outpatient (CLI) | payer OTHER, SELFPAY ==
[2022-01-30 11:40] LABS: Basophils Percent Auto 0.7 % (0.2-1.2); Eosinophils Absolute Auto 0.2 K/mm3 (0-0.3); Eosinophils Percent Auto 2.9 % (0-4.4); Hematocrit 39.5 % (37.0-47.0); Immature Granulocyte Absolute 0.03 K/mm3 (0.00-0.031); Immature Granulocyte Percent A 0.5 % (0-0.5); Lymphocytes Absolute Auto 1.15 K/mm3 (0.9-3.2); Lymphocytes Percent Auto 19.8 % (18.3-44.2); Mean Corpuscular HGB Conc 32.9 g/dl (32-36); Mean Corpuscular Hemoglobin 32.3 pg (26-34); Mean Corpuscular Volume 98.3 fl (80-100); Mean Platelet Volume 8.7 fl (7.4-10.4); Monocytes Absolute Auto 0.6 K/mm3 (0.1-0.6); Neutrophils Absolute Auto 3.8 K/mm3 (1.3-6.7); Neutrophils Percent Auto 65.1 % (45.5-73.1); Platelet Count Result 215 k/mm3 (150-375); Red Blood Count 4.02 M/mm3 (4.2-5.4); Red Cell Distribution Width 13.5 % (11.5-14.5); White Blood Count 5.8 K/mm3 (4.5-10.0)
[2022-01-30 11:59] LABS: Alanine Aminotransferase 20 U/L (6-35); Albumin Level 4.3 g/dL (3.5-5.1); Alkaline Phosphatase 47 U/L (38-126); Anion Gap 7 mmol/L (8-16); Aspartate Amino Transferase 24 U/L (14-36); Bilirubin,Total 0.4 mg/dL (0.2-1.3); Blood Urea Nitrogen 18 mg/dL (7-17); CRP 0.8 mg/dL (<1.0); Calcium 8.3 mg/dL (8.4-10.2); Carbon Dioxide 28 mmol/L (22-30); Chloride 103 mmol/L (98-107); Estimated Glomerular Filt Rate > 60; Glucose 127 mg/dL (65-110); Potassium 4.6 mmol/L (3.4-5.0); Sodium 138 mmol/L (137-145)
== END 2022-01-30 11:01 | disposition home or self-care (01) ==
LOC: ANHLAB 11:02
PROVIDERS: PCP Internal Medicine; Visit Provider Internal Medicine
DX: M05.79 Rheumatoid arthritis with rheumatoid factor of multiple sites without organ or systems involvement (principal); M35.00 Sjogren syndrome, unspecified
CPT/HCPCS: 36415; 80053; 85025; 86140

== ENCOUNTER 2022-02-15 06:23 | Emergency (ER) | payer OTHER, SELFPAY ==
[2022-02-15 06:26] VITALS: BP 148/80; PULSE 83; RESP 14; TEMP 36.2; O2SAT 99
--- NOTE | 2022-02-15 07:21 | ED.EYEPROB ---
HPI - Eye Problem General Chief complaint: Eye Problems Stated complaint: I think I have pink eye Time Seen by Provider: 02/15/22 07:18 History of Present Illness HPI Narrative: pt works here and congestion then rubbing eyes and woke up today with eyes red and crusted no fb/vision chagnes pain or other issues no cp/sob/neuro chagnes no sick contacts, pt has ophtho with her glasses doesn't wear contacts and has next appt in March so can f/u with them in [place] as well Related Data Home Medications Medication Instructions Recorded Confirmed aspirin 81 mg tablet,delayed 81 mg PO DAILY 12/29/19 01/08/22 release (Adult Low Dose Aspirin) calcium carbonate 500 mg calcium 1,000 mg PO BID 12/29/19 01/08/22 (1,250 mg) tablet (Calcium 500) cholecalciferol (vitamin D3) 25 25 mcg PO BID 12/29/19 01/08/22 mcg (1,000 unit) capsule loratadine 10 mg tablet (Claritin) 10 mg PO DAILY 12/29/19 01/08/22 magnesium oxide 800 mg PO BID 12/29/19 01/08/22 omeprazole magnesium 20 mg 20 mg PO DAILY 12/29/19 01/08/22 tablet,delayed release (Prilosec OTC) multivitamin 1 cap PO QAM 02/27/20 01/08/22 fluticasone propionate 50 1 spray intranasal DAILY 08/30/20 01/08/22 mcg/actuation nasal spray,suspension celecoxib 200 mg capsule (Celebrex) 200 mg PO DAILY 05/09/21 01/08/22 tramadol 50 mg tablet 50 mg PO TID PRN 05/09/21 01/08/22 cyclobenzaprine 5 mg tablet 5 mg PO QHS PRN 01/07/22 01/08/22 ferrous gluconate 270 mg (27 mg 270 mg PO .qod 01/07/22 01/08/22 iron) tablet Allergies Allergy/AdvReac Type Severity Reaction Status Date / Time morphine Allergy Unknown Vomiting Verified 02/15/22 07:13 tetracycline Allergy Unknown Rash Verified 02/15/22 07:13 [id number] Reductase AdvReac Mild Muscle Pain Verified 02/15/22 07:13 Inhibitor Review of Systems Constitutional: Comments: CONSTITUTIONAL: Denies fever, chills, or sweats. EYES: Denies visual changes, has redness and b/l d/c and crusting ENT: Denies rhinorrhea, congestion, sore throat, or otalgia. CARDIOVASCULAR: Denies chest pain, palpitations, or edema. RESPIRATORY: Denies cough or dyspnea. GASTROINTESTINAL: Denies abdominal pain, nausea, vomiting, or diarrhea. GENITOURINARY: Denies dysuria or hematuria. SKIN: Denies rash or itching. MUSCULOSKELETAL: Denies back pain, joint pain, or myalgia. NEUROLOGIC: Denies headache, numbness, or weakness. PSYCHIATRIC: Denies anxiety or depression. [facility] Past Medical History Medical History Abdominal hernia Anemia Angina at rest Arthritis Atrial fibrillation Back pain delivery delivered COVID-19 DM w/o complication type II Hearing loss Heart attack Heart disease History of miscarriage x2 Hypercalcemia Kidney disease Renal disease Sleep apnea Thyroid disease Thyroid disorder Vision loss Surgical History Surgical History Delivery by section H/O dilation and curettage H/O heart artery stent H/O hernia repair History of cholecystectomy History of cholecystectomy History of dilatation and curettage History of thyroidectomy Family History Family History Mother Heart disease Father Diabetes mellitus Heart disease Grandparent Heart attack Rheumatoid arthritis Sibling Diabetes mellitus Heart attack COPD (chronic obstructive pulmonary disease) Lung cancer Acute myocardial infarction Other Family history of alcoholism Family history of arthritis Family history of cardiovascular disease Family history of hearing loss Hypertension Social History Social History Smoking status: Former smoker Smoking end date: 08/17/15 Alcohol intake: current Drinks per week: 1 Spiritual care concerns: No Exam Const: Other: APPEARANCE: Well appearing, no pain in d
[2022-02-15 07:51] VITALS: BP 134/87; PULSE 81; RESP 15; O2SAT 99
== END 2022-02-15 07:53 | disposition home or self-care (01) ==
PROVIDERS: Emergency Provider Emergency Medicine; PCP Internal Medicine
DX: H10.33 Unspecified acute conjunctivitis, bilateral (principal); I48.91 Unspecified atrial fibrillation; E11.9 Type 2 diabetes mellitus without complications; I25.2 Old myocardial infarction; Z87.891 Personal history of nicotine dependence
CPT/HCPCS: 99283

== ENCOUNTER 2022-04-23 15:03 | Outpatient (CLI) | payer OTHER, SELFPAY ==
[2022-04-23 15:48] LABS: Basophils Absolute Auto 0.1 K/mm3 (0.0-0.1); Basophils Percent Auto 0.7 % (0.2-1.2); Eosinophils Absolute Auto 0.2 K/mm3 (0-0.3); Eosinophils Percent Auto 2.2 % (0-4.4); Hematocrit 40.6 % (37.0-47.0); Hemoglobin 13.7 g/dL (12.0-15.0); Immature Granulocyte Absolute 0.05 K/mm3 (0.00-0.031); Immature Granulocyte Percent A 0.7 % (0-0.5); Lymphocytes Absolute Auto 1.54 K/mm3 (0.9-3.2); Lymphocytes Percent Auto 22.3 % (18.3-44.2); Mean Corpuscular HGB Conc 33.7 g/dl (32-36); Mean Corpuscular Hemoglobin 32.9 pg (26-34); Mean Corpuscular Volume 97.4 fl (80-100); Mean Platelet Volume 8.6 fl (7.4-10.4); Monocytes Absolute Auto 0.7 K/mm3 (0.1-0.6); Neutrophils Absolute Auto 4.4 K/mm3 (1.3-6.7); Neutrophils Percent Auto 64.1 % (45.5-73.1); Platelet Count Result 225 k/mm3 (150-375); Red Blood Count 4.17 M/mm3 (4.2-5.4); Red Cell Distribution Width 13.4 % (11.5-14.5); White Blood Count 6.9 K/mm3 (4.5-10.0)
[2022-04-23 16:03] LABS: Alanine Aminotransferase 19 U/L (6-35); Albumin Level 4.7 g/dL (3.5-5.1); Alkaline Phosphatase 53 U/L (38-126); Anion Gap 14 mmol/L (8-16); Aspartate Amino Transferase 26 U/L (14-36); Bilirubin,Total 0.4 mg/dL (0.2-1.3); Blood Urea Nitrogen 31 mg/dL (7-17); CRP 0.9 mg/dL (<1.0); Calcium 8.7 mg/dL (8.4-10.2); Carbon Dioxide 27 mmol/L (22-30); Chloride 99 mmol/L (98-107); Estimated Glomerular Filt Rate > 60; Glucose 93 mg/dL (65-110); Potassium 4.3 mmol/L (3.4-5.0); Sodium 140 mmol/L (137-145)
== END 2022-04-23 15:04 | disposition home or self-care (01) ==
LOC: ANHLAB 15:07
PROVIDERS: PCP Internal Medicine; Visit Provider Internal Medicine
DX: M17.0 Bilateral primary osteoarthritis of knee (principal); M35.00 Sjogren syndrome, unspecified; M05.79 Rheumatoid arthritis with rheumatoid factor of multiple sites without organ or systems involvement; E20.9 Hypoparathyroidism, unspecified
CPT/HCPCS: 36415; 80053; 85025; 86140

== ENCOUNTER 2022-04-30 14:59 | Outpatient (CLI) | payer OTHER, SELFPAY ==
--- NOTE | ~2022-04-30 | XR_ITS ---
EXAMINATION: XR lumbar spine 2-3V DATE: 04/30/2022 15:21 INDICATION: Low back pain TECHNIQUE: Anteroposterior and lateral views of the lumbar spine, and cone-down lateral view of the l umbosacral junction were obtained. COMPARISON: 07/24/2020 FINDINGS: There are 6 mm stable anterolisthesis of L3 on L4 and L4 on L5. There is no fracture. The v ertebral body heights are normal. There is mild loss of intervertebral disc space height at L4-5 and moderate loss of intervertebral disc space height at L5-S1. Moderate facet osteoarthritis is present in the lower lumbar spine. Calcified atherosclerosis is noted. There are changes of mesh ventral ernesto ia repair. IMPRESSION: 1. Moderate lumbar spondylosis without acute findings or significant interval change. Reviewed, dictated and finalized at location B. IMPRESSION: 1. Moderate lumbar spondylosis without acute findings or significant interval aleyda mcnamara
== END 2022-04-30 15:00 | disposition home or self-care (01) ==
LOC: ANHIMG 15:01
PROVIDERS: PCP Internal Medicine; Visit Provider Internal Medicine
DX: M17.0 Bilateral primary osteoarthritis of knee (principal); M54.50 Low back pain, unspecified; G89.29 Other chronic pain; M47.816 Spondylosis without myelopathy or radiculopathy, lumbar region
CPT/HCPCS: 72100

== ENCOUNTER 2022-06-19 15:27 | Outpatient (NON) | payer OTHER, SELFPAY | END 2022-06-19 15:28 | disposition home or self-care (01) | PROVIDERS: PCP Internal Medicine; Visit Provider Clinical Nurse Specialist | DX: R35.0 Frequency of micturition (principal) | CPT/HCPCS: 87077; 87086; 87186 ==

== ENCOUNTER 2022-08-04 16:42 | Outpatient (CLI) | payer OTHER, SELFPAY ==
[2022-08-04 17:22] LABS: Basophils Percent Auto 0.7 % (0.2-1.2); Eosinophils Absolute Auto 0.2 K/mm3 (0-0.3); Eosinophils Percent Auto 2.7 % (0-4.4); Hematocrit 40.7 % (37.0-47.0); Hemoglobin 13.7 g/dL (12.0-15.0); Immature Granulocyte Absolute 0.05 K/mm3 (0.00-0.031); Immature Granulocyte Percent A 0.8 % (0-0.5); Lymphocytes Absolute Auto 1.19 K/mm3 (0.9-3.2); Lymphocytes Percent Auto 20.1 % (18.3-44.2); Mean Corpuscular HGB Conc 33.7 g/dl (32-36); Mean Corpuscular Hemoglobin 32.5 pg (26-34); Mean Corpuscular Volume 96.7 fl (80-100); Mean Platelet Volume 8.4 fl (7.4-10.4); Monocytes Absolute Auto 0.6 K/mm3 (0.1-0.6); Monocytes Percent Auto 9.8 % (2.6-8.5); Neutrophils Absolute Auto 3.9 K/mm3 (1.3-6.7); Neutrophils Percent Auto 65.9 % (45.5-73.1); Platelet Count Result 223 k/mm3 (150-375); Red Blood Count 4.21 M/mm3 (4.2-5.4); Red Cell Distribution Width 13.8 % (11.5-14.5); White Blood Count 5.9 K/mm3 (4.5-10.0)
[2022-08-04 17:33] LABS: Alanine Aminotransferase 23 U/L (6-35); Albumin Level 4.8 g/dL (3.5-5.1); Alkaline Phosphatase 51 U/L (38-126); Anion Gap 6 mmol/L (8-16); Aspartate Amino Transferase 30 U/L (14-36); Bilirubin,Total 0.3 mg/dL (0.2-1.3); Blood Urea Nitrogen 25 mg/dL (7-17); CRP 0.9 mg/dL (<1.0); Calcium 8.4 mg/dL (8.4-10.2); Carbon Dioxide 31 mmol/L (22-30); Chloride 101 mmol/L (98-107); Estimated Glomerular Filt Rate > 60; Glucose 102 mg/dL (65-110); Sodium 138 mmol/L (137-145)
== END 2022-08-04 16:43 | disposition home or self-care (01) ==
LOC: ANHLAB 16:45
PROVIDERS: PCP Internal Medicine; Visit Provider Internal Medicine
DX: M17.0 Bilateral primary osteoarthritis of knee (principal); M05.79 Rheumatoid arthritis with rheumatoid factor of multiple sites without organ or systems involvement; G89.29 Other chronic pain
CPT/HCPCS: 36415; 80053; 85025; 86140

== ENCOUNTER 2022-09-01 22:15 | Outpatient (NON) | payer OTHER, SELFPAY | END 2022-09-01 22:16 | disposition home or self-care (01) | PROVIDERS: PCP Internal Medicine; Visit Provider Nurse Practitioner | DX: R82.90 Unspecified abnormal findings in urine (principal) | CPT/HCPCS: 87077; 87086; 87186 ==

== ENCOUNTER 2022-09-19 15:02 | Outpatient (CLI) | payer OTHER, SELFPAY ==
--- NOTE | ~2022-09-19 | US_ITS ---
EXAMINATION: US pelvic complete w TV DATE: 09/19/2022 16:11 INDICATION: Postmenopausal bleeding. TECHNIQUE: Multiple transabdominal and transvaginal sonographic images of the pelvis were obtained. COMPARISON: CT abdomen and pelvis 06/18/2021 FINDINGS: TRANSABDOMINAL ULTRASOUND: The uterus measures 10.3 x 4.2 x 6.2 cm. There is no free fluid in the pelvis. TRANSVAGINAL ULTRASOUND: The endometrial complex measures 5 mm in thickness. There are 1.2 cm and 1.4 cm intramural fibroids. The right ovary measures 2.5 x 1.0 x 2.2 cm. The left ovary measures 2.4 x 1.2 x 3.0 cm. IMPRESSION: 1. Uterine fibroids. Reviewed, dictated and finalized at location A. ATAL CRITICAL CARE NURSE IMPRESSION: 1. Uterine fibroids.
== END 2022-09-19 15:03 | disposition home or self-care (01) ==
LOC: ANHIMG 15:04
PROVIDERS: PCP Internal Medicine; Visit Provider Obstetrics & Gynecology
DX: N95.0 Postmenopausal bleeding (principal); D25.9 Leiomyoma of uterus, unspecified
CPT/HCPCS: 76830; 76856

== ENCOUNTER 2022-09-29 09:38 | Outpatient (CLI) | payer OTHER, SELFPAY ==
[2022-09-29 10:41] LABS: Cholesterol 173 mg/dL (0-200); HDL Direct 49 mg/dL; Triglycerides 78 mg/dL (<150)
[2022-09-29 10:47] LABS: Albumin Level 4.1 g/dL (3.5-5.1); Anion Gap 8 mmol/L (8-16); Blood Urea Nitrogen 17 mg/dL (7-17); Carbon Dioxide 30 mmol/L (22-30); Chloride 104 mmol/L (98-107); Estimated Glomerular Filt Rate > 60; Glucose 114 mg/dL (65-110); Phosphorus 4.8 mg/dL (2.5-4.5); Potassium 4.3 mmol/L (3.4-5.0); Sodium 142 mmol/L (137-145)
[2022-09-29 10:52] LABS: LDL Cholesterol Direct 92 mg/dL
[2022-09-29 11:16] LABS: Free T4 Free Thyroxine 1.13 ng/mL (0.78-2.19)
== END 2022-09-29 09:39 | disposition home or self-care (01) ==
PROVIDERS: PCP Internal Medicine; Referring Provider Internal Medicine Endocrinology, Diabetes & Metabolism; Visit Provider Internal Medicine Cardiovascular Disease
DX: E78.5 Hyperlipidemia, unspecified (principal); E11.9 Type 2 diabetes mellitus without complications; E89.0 Postprocedural hypothyroidism; E89.2 Postprocedural hypoparathyroidism
CPT/HCPCS: 36415; 80061; 80069; 83036; 84439; 84443

== ENCOUNTER 2022-10-20 14:59 | Outpatient (CLI) | payer OTHER, SELFPAY ==
[2022-10-20 15:36] LABS: Basophils Absolute Auto 0.1 K/mm3 (0.0-0.1); Eosinophils Absolute Auto 0.2 K/mm3 (0-0.3); Eosinophils Percent Auto 3.5 % (0-4.4); Hematocrit 39.1 % (37.0-47.0); Hemoglobin 13.2 g/dL (12.0-15.0); Immature Granulocyte Absolute 0.05 K/mm3 (0.00-0.031); Immature Granulocyte Percent A 0.7 % (0-0.5); Lymphocytes Absolute Auto 1.59 K/mm3 (0.9-3.2); Lymphocytes Percent Auto 22.9 % (18.3-44.2); Mean Corpuscular HGB Conc 33.8 g/dl (32-36); Mean Corpuscular Hemoglobin 31.8 pg (26-34); Mean Corpuscular Volume 94.2 fl (80-100); Mean Platelet Volume 8.7 fl (7.4-10.4); Monocytes Absolute Auto 0.8 K/mm3 (0.1-0.6); Monocytes Percent Auto 10.8 % (2.6-8.5); Neutrophils Absolute Auto 4.3 K/mm3 (1.3-6.7); Neutrophils Percent Auto 61.1 % (45.5-73.1); Platelet Count Result 245 k/mm3 (150-375); Red Blood Count 4.15 M/mm3 (4.2-5.4)
[2022-10-20 15:55] LABS: Alanine Aminotransferase 22 U/L (6-35); Albumin Level 4.5 g/dL (3.5-5.1); Alkaline Phosphatase 56 U/L (38-126); Anion Gap 9 mmol/L (8-16); Aspartate Amino Transferase 28 U/L (14-36); Bilirubin,Total 0.5 mg/dL (0.2-1.3); Blood Urea Nitrogen 21 mg/dL (7-17); CRP 0.7 mg/dL (<1.0); Calcium 7.8 mg/dL (8.4-10.2); Carbon Dioxide 29 mmol/L (22-30); Chloride 102 mmol/L (98-107); Estimated Glomerular Filt Rate > 60; Glucose 99 mg/dL (65-110); Potassium 4.1 mmol/L (3.4-5.0); Sodium 140 mmol/L (137-145)
== END 2022-10-20 15:00 | disposition home or self-care (01) ==
PROVIDERS: PCP Internal Medicine; Visit Provider Internal Medicine
DX: M54.50 Low back pain, unspecified (principal); G89.29 Other chronic pain; M17.0 Bilateral primary osteoarthritis of knee; M05.79 Rheumatoid arthritis with rheumatoid factor of multiple sites without organ or systems involvement
CPT/HCPCS: 36415; 80053; 85025; 86140

== ENCOUNTER 2022-10-27 14:27 | Outpatient (CLI) | payer OTHER, SELFPAY ==
--- NOTE | ~2022-10-27 | US_ITS ---
EXAMINATION: US retroperitoneal comp DATE: 10/27/2022 15:10 INDICATION: Chronic urinary tract infection TECHNIQUE: Multiple ultrasound grayscale images of the kidneys were obtained. COMPARISON: None. FINDINGS: The right kidney measures 12.2 x 5.6 x 5.4 cm. The left kidney measures 11.4 x 6.4 x 5.2 cm. The kidn eys demonstrate normal echogenicity. There is mild left hydronephrosis. No hydronephrosis at the righ t kidney. No stones identified. The bladder is normal with calculated prevoid bladder volume of 231 mL. IMPRESSION: 1. Nonspecific mild left hydronephrosis. Reviewed, dictated and finalized at location B.
== END 2022-10-27 14:28 | disposition home or self-care (01) ==
PROVIDERS: PCP Internal Medicine; Visit Provider Nurse Practitioner Adult Health
DX: N39.0 Urinary tract infection, site not specified (principal)
CPT/HCPCS: 76770

== ENCOUNTER 2022-11-07 00:36 | Day surgery (SDC) | payer OTHER, SELFPAY ==
[2022-10-27 11:53] VITALS: BMI 42.1
--- NOTE | 2022-10-27 12:02 | PC.NURSE ---
Report to the Outpatient Waiting Room, entrance under the green pavilion located off [facility], at time 0600 on date 11/07/22. Planned Procedure Time: 0730. Time changes happen often and if your time is changed the preop area will call you the afternoon before. - You and your visitor will be asked to self-screen and do not enter if you have any COVID symptoms. - Only one visitor is requested with a max of two and NO children visitors are allowed at this time. - The patient visitor may be requested to leave or wait in car when not with patient due to distancing restrictions. - A mask is optional within the hospital at this time. Patients may have clear liquids (water, carbonated beverages, clear teas, apple juice) until 3 hours prior to surgery with a maximum of 20 ounces. - No food from midnight until time of surgery Take the following medications with a SIP of water the morning of surgery: AZATHIOPRINE, CARVEDILOL, LEVOTHYROXINE, TRAMADOL/TYLENOL IF NEEDED DO NOT STOP ANY OF YOUR OTHER PRESCRIPTION MEDICATIONS PRIOR TO SURGERY?EXCEPT THE FOLLOWING Medications to discontinue per physician: VITAMINS/SUPPLEMENTS Date to take last dose: 11/03/[address] HALL RE: ASPIRIN AND MOBIC Please no make-up, nail malay, hairspray, perfume, deodorant, or body powder the day of surgery. No jewelry (including any body piercings) or valuables the day of surgery, leave them at home. Please take a shower or bath the night before, or the morning of, surgery with an antibacterial soap. Wear comfortable, loose fitting clothing. - Jewelry must be removed prior to entering the operating room. Rings and piercings that are not removed may be cut off. - The hospital will not accept responsibility for valuables. - Please leave all valuables, including medications, at home the day of surgery. If you are going home after surgery, a licensed entry level truck driver must drive you home. - NO public transportation without another adult if you receive anesthesia. - We recommend that an adult stay with you for 24 hours following discharge. - We also recommend that you do not drive, make important decision, drink alcoholic beverages, or take any drugs that were not prescribed by your health care provider for at least 24 hours after your discharge time. Follow any additional instructions given to you from your surgeon. If you or anyone in your household have experienced Covid symptoms in the past week, please notify your surgeon or the nurse liaison at the phone number below for possible testing. Telephone instructions given to YOLIE PONCE and asked if any additional questions and then verbalized understanding. Patient advised to call surgeon office or pre surgery nurse liaison [phone] if any additional questions.
--- NOTE | 2022-11-07 06:55 | WPDANESEPPF ---
Anes - Initial Pre Proc Eval Procedure: Operation Date: 11/07/22 07:30 Proposed Procedures p Hysteroscopy Dilation and Curettage, Possible Fibroid Removal - Will Montesinos MD Date/Time: 11/07/22 06:55 Surgeon: Will Montesinos MD Pre Op Diagnosis: endometerial polyp Patient Data Age: 57 Gender: F Height: 1.64 m Weight: 113.15 kg Allergies Allergy/AdvReac Type Severity Reaction Status Date / Time morphine Allergy Unknown Vomiting Verified 10/29/22 15:50 tetracycline Allergy Unknown Rash Verified 10/29/22 15:50 Kcveewi-XEL-MaB Reductase AdvReac Mild Muscle Pain Verified 10/29/22 15:50 Inhibitor Home Medications Medication Instructions Recorded Confirmed Type aspirin 81 mg tablet,delayed 81 mg PO DAILY 12/29/19 10/27/22 History release (Adult Low Dose Aspirin) calcium carbonate 500 mg calcium 1,000 mg PO BID 12/29/19 10/27/22 History (1,250 mg) tablet (Calcium 500) loratadine 10 mg tablet (Claritin) 10 mg PO DAILY 12/29/19 10/27/22 History magnesium oxide 800 mg PO BID 12/29/19 10/27/22 History omeprazole magnesium 20 mg 20 mg PO DAILY 12/29/19 10/27/22 History tablet,delayed release (Prilosec OTC) multivitamin 1 cap PO QAM 02/27/20 10/27/22 History fluticasone propionate 50 1 spray intranasal DAILY 08/30/20 10/27/22 History mcg/actuation nasal spray,suspension azathioprine 50 mg tablet 50 mg PO BID #180 tabs 11/01/20 10/27/22 Rx tramadol 50 mg tablet 50 mg PO TID PRN Pain 05/09/21 10/27/22 History blood-glucose meter (Blood Glucose #1 ea 09/17/21 09/01/22 Rx Monitoring kit) cyclobenzaprine 5 mg tablet 5 mg PO QHS PRN Insomnia 01/07/22 10/27/22 History diltiazem HCl 180 mg See Rx Instructions .Route 02/24/22 10/27/22 Rx capsule,extended release 24 hr .COMPLEX #90 caps blood sugar diagnostic (OneTouch #100 ea 03/27/22 09/01/22 Rx Verio test strips) calcitriol 0.25 mcg capsule 0.5 mcg PO BID 3 months #360 caps 03/27/22 10/27/22 Rx cholecalciferol (vitamin D3) 25 50 mcg PO BID 03/27/22 10/27/22 History mcg (1,000 unit) capsule levothyroxine 150 mcg tablet See Rx Instructions .Route 03/27/22 10/27/22 Rx .COMPLEX #90 tabs lancets 33 gauge (OneTouch Delica #100 ea 06/17/22 09/01/22 Rx Plus Lancet) carvedilol 12.5 mg tablet See Rx Instructions .Route 06/30/22 10/27/22 Rx .COMPLEX #180 tabs enalapril maleate 2.5 mg tablet See Rx Instructions .Route 07/28/22 10/27/22 Rx .COMPLEX #180 tabs ezetimibe 10 mg tablet See Rx Instructions .Route 09/07/22 10/27/22 Rx .COMPLEX #90 tabs acetaminophen 500 mg tablet 1,000 mg PO DAILY 10/27/22 10/27/22 History cephalexin 250 mg tablet 250 mg PO HS 10/27/22 10/27/22 History ferrous sulfate 325 mg (65 mg 325 mg PO EVERY OTHER DAY 10/27/22 10/27/22 History iron) tablet meloxicam 7.5 mg tablet 7.5 mg PO DAILY 10/27/22 10/27/22 History Patient hx anesthesia problems: none Family hx anesthesia problems: none Results Review: All pre-operative results and documents have been reviewed as part of the pre-operative evaluation. [facility] Past Medical History Medical History Abdominal hernia Anemia Angina at rest Arthritis Atrial fibrillation Back pain delivery delivered COVID-19 DM w/o complication type II Hearing loss Heart attack Heart disease History of miscarriage x2 Hypercalcemia Kidney disease Renal disease Sleep apnea Thyroid disease Thyroid disorder Vision loss Surgical History Surgical History Delivery by section H/O dilation and curettage H/O heart artery stent H/O hernia repair History of cholecystectomy History of cholecystectomy History of dilatation and curettage History of thyroidectomy Family History Family History Mother Heart disease Father Diabetes mellitus Heart disease Grandparent
[2022-11-07] MEDS: ACETAMINOPHEN 500 MG TABLET 1000 MG PO (07:00)
[2022-11-07] MEDS: LACTATED RINGERS 1,000 ML 30 ML IV CONT (07:00)
[2022-11-07 07:06] LABS: Glucose Point of Care 122 mg/dl (65-105)
[2022-11-07 07:31] VITALS: BP 127/71; PULSE 79; RESP 14; TEMP 37; O2SAT 96
--- NOTE | 2022-11-07 07:44 | PM.IMHP ---
H&P: HPI History of Present Illness Date/Time: 11/07/22 07:44 Chief Complaint: Postmenopausal bleeding Narrative: She had a history of postmenopausal bleeding. Ultrasound showed borderline thickened endometrium. Endometrial biopsy showed endometrial polyp. She was recommended for D and c hysteroscopy and removal of endometrial lesion. Review of Systems Review of Systems: All systems reviewed & are unremarkable except as noted in HPI and below Constitutional: Constitutional: Reports no additional constitutional complaints Eyes: Eyes: Reports no additional eye complaints Cardiovascular: Cardiovascular: Reports no additional cardiovascular complaints Respiratory: Respiratory: Reports no additional respiratory complaints Gastrointestinal: Gastrointestinal: Reports no additional gastrointestinal complaints Genitourinary: Genitourinary: Reports no additional female genitourinary complaints and Reports as per HPI Integumentary/Breasts: Skin/Breast: Reports system reviewed and no additional complaints, except as docu Neurologic: Reports system reviewed and no additional complaints, except as documented Psychiatric: Psychiatric: Reports no additional psychiatric complaints Hematologic/Lymphatic: Hematologic/Lymphatic: Reports no additional hematologic/lymphatic complaints [facility] Past Medical History Medical History Abdominal hernia Anemia Angina at rest Arthritis Atrial fibrillation Back pain delivery delivered COVID-19 DM w/o complication type II Hearing loss Heart attack Heart disease History of miscarriage x2 Hypercalcemia Kidney disease Renal disease Sleep apnea Thyroid disease Thyroid disorder Vision loss Surgical History Surgical History Delivery by section H/O dilation and curettage H/O heart artery stent H/O hernia repair History of cholecystectomy History of cholecystectomy History of dilatation and curettage History of thyroidectomy Family History Family History Mother Heart disease Father Diabetes mellitus Heart disease Grandparent Heart attack Rheumatoid arthritis Sibling Diabetes mellitus Heart attack COPD (chronic obstructive pulmonary disease) Lung cancer Acute myocardial infarction Other Family history of alcoholism Family history of arthritis Family history of cardiovascular disease Family history of hearing loss Hypertension Social History Social History Smoking packs per day: 0.5 Smoking cigarettes per day: 10.0 Years smoked: 37 Smoking pack-years: 18.50 Smoking status: Former smoker Tobacco type: cigarettes Smoking end date: 08/17/15 Alcohol intake: current Drinks per week: 2 Substance use: never Substance use type: does not use Lack of Transportation: No Lack of Food: Never True Current Housing: I Have Housing Concerned About Future Housing: No Difficulty Paying Gas/Electric Bills: No Difficulty Paying for Meds: No Currently Unemployed: No Education: High School Diploma/GED Difficulty w/ Childcare or Family Care: No Living arrangements: with family Spiritual care concerns: No Meds Home Medications and Allergies Home Medications Medication Instructions Recorded Confirmed Type aspirin 81 mg tablet,delayed 81 mg PO DAILY 12/29/19 10/27/22 History release (Adult Low Dose Aspirin) calcium carbonate 500 mg calcium 1,000 mg PO BID 12/29/19 10/27/22 History (1,250 mg) tablet (Calcium 500) loratadine 10 mg tablet (Claritin) 10 mg PO DAILY 12/29/19 10/27/22 History magnesium oxide 800 mg PO BID 12/29/19 10/27/22 History omeprazole magnesium 20 mg 20 mg PO DAILY 12/29/19 10/27/22 History tablet,delayed release (Prilosec OTC) multivitamin 1 cap PO QAM
--- NOTE | 2022-11-07 07:45 | WPDHPUPDATE1 ---
History and Physical Update Update Date/Time: 11/07/22 07:45 History and Physical has been reviewed, including an updated exam of the patient. There are NO changes in the patient's condition. Risks, benefits, and alternatives have been discussed and questions answered. Patient agrees to proceed with procedure.
[2022-11-07] MEDS: ceFAZolin 2 GM/D5W 50 ML 2 GM/50 ML BAG IVPB (07:53)
[2022-11-07] MEDS: LIDOCAINE HCL 1% LOCAL INJ 20 ML VIAL INFILTRATE (08:08)
[2022-11-07 08:20] VITALS: BP 103/61; PULSE 72; RESP 16; O2SAT 92
[2022-11-07 08:50] VITALS: BP 106/61; PULSE 65; RESP 16
--- NOTE | 2022-11-07 09:11 | P.OP_ITS ---
Procedure Note - Detailed Date of Procedure 11/07/22 Pre-op Diagnosis endometerial polyp Postmenopausal bleeding Post-op Diagnosis Same Procedure Performed hysteroscopy dilation and curettage removal of endometrial lesion Surgeon Will Montesinos MD Anesthesia MAC and Local Indications patient with history of postmenopausal bleeding endometrial biopsy in office showed endometrial polyp she was recommended for D and C hysteroscopy removal of endometrial lesion. Findings Endometrial cavity atrophic small polyp structure at the lower uterine segment or upper cervix it was removed completely. Description of Procedure After informed consent was obtained she was taken to the operating room and adequate IV sedation was administered. She was placed in low lithotomy position and prepped and draped in sterile fashion. Attention was turned to the vagina speculum was inserted single-tooth tenaculum placed on anterior lip of the cervix cervix was dilated to an 8 Krishna dilator uterus was sounded to 9.5 cm hysteroscope was inserted the cavity appeared atrophic there was a small polyp at the lower segment or upper cervix. The a Aveta biopsy was then inserted and this was removed. A curettage was performed minimal tissue obtained. Single- tooth tenaculum removed hemostasis noted patient tolerated procedure well sponge count correct patient was taken to the operating room in stable condition. Estimated Blood Loss 5 Drains No Packing No Pathology Yes ( Endometrial curettings with polyp) Complications No immediate complications Condition Stable Disposition Same day [facility] Billing Surgery - Charge Forward: Surgery Billing
[2022-11-07 09:20] VITALS: BP 124/68; PULSE 59; RESP 16
[2022-11-07 09:35] VITALS: BP 116/67; PULSE 58; RESP 16
== END 2022-11-07 09:44 | disposition home or self-care (01) ==
PROVIDERS: PCP Internal Medicine; Visit Provider Obstetrics & Gynecology
PROC: 0U5B8ZZ Destruction of Endometrium, Via Natural or Artificial Opening Endoscopic (ICD-10-PCS; CPT 58563; principal; 2022-11-07 07:30)
DX: N84.0 Polyp of corpus uteri (principal); N95.0 Postmenopausal bleeding; I48.91 Unspecified atrial fibrillation; D64.9 Anemia, unspecified; I51.9 Heart disease, unspecified; I25.2 Old myocardial infarction; E07.9 Disorder of thyroid, unspecified; E11.9 Type 2 diabetes mellitus without complications; Z79.82 Long term (current) use of aspirin; Z95.5 Presence of coronary angioplasty implant and graft; Z87.891 Personal history of nicotine dependence; E66.9 Obesity, unspecified; Z68.41 Body mass index [BMI] 40.0-44.9, adult
CPT/HCPCS: 58558; 82948; 88305; A9270; J0690; J2250; J2704; J3010; J7120

== ENCOUNTER 2022-11-20 07:48 | Outpatient (CLI) | payer OTHER, SELFPAY ==
--- NOTE | ~2022-11-20 | CT_ITS ---
EXAMINATION: CT abdomen pelvis wo/w con DATE: 11/20/2022 08:29 INDICATION: Hydronephrosis TECHNIQUE: Computed tomography (CT) of the abdomen and pelvis was performed without intravenous contr ast. CT of the abdomen and pelvis was then performed with a total of 130 mL Omnipaque 350 intravenous contrast using a double-bolus technique for simultaneous opacification of the renal parenchyma and r enal collecting system. The dose-length product (DLP) was 2853.75 mGy-cm. Automated exposure control and iterative reconstruction technique were employed. COMPARISON: 06/18/2021 FINDINGS: Minimal dependent atelectasis is present in the lung bases. The heart size is normal. There is a moderate-sized sliding hiatal hernia. The gallbladder is surgically absent. The liver, spleen, pancreas, and adrenal glands are normal. Cysts of the kidneys measure up to 6 mm on the left. No ston es are identified in the kidneys, ureters, or bladder. There is no hydronephrosis. No suspicious elisa l or urothelial lesion identified. No pathologically enlarged abdominal or pelvic lymph nodes are jasen ntified. No free intraperitoneal gas or evidence of bowel obstruction. There is calcified atheroscler osis of the aorta and many of the other arteries. There are changes of mesh ventral hernia repair. IMPRESSION: 1. No hydronephrosis identified. Reviewed, dictated and finalized at location L.
--- NOTE | ~2022-11-20 | XR_ITS ---
EXAMINATION: XR abdomen/kub 1V INDICATION: Hydronephrosis TECHNIQUE: Supine views of the abdomen were obtained on 2 radiographs. COMPARISON: CT from today FINDINGS: No urolithiasis is identified. A large volume of colonic stool is present. Changes of mesh ventral hernia repair are noted. There are cholecystectomy clips in the right upper quadrant. There i s mild osteoarthritis of the hips. Osteitis pubis is noted. IMPRESSION: 1. No urolithiasis identified. Reviewed, dictated and finalized at location L.
== END 2022-11-20 07:49 | disposition home or self-care (01) ==
PROVIDERS: PCP Internal Medicine; Visit Provider Nurse Practitioner Adult Health
DX: N13.30 Unspecified hydronephrosis (principal)
CPT/HCPCS: 74018; 74178; Q9967

== ENCOUNTER 2022-12-18 09:24 | Outpatient (CLI) | payer OTHER, SELFPAY ==
--- NOTE | ~2022-12-18 | MM_ITS ---
EXAMINATION: MM screening yudith BI w emily HISTORY: Screening mammogram TECHNIQUE: Craniocaudal and mediolateral oblique 3-D tomosynthesis images were obtained and synthetic 2-D images were generated. CAD analysis was submitted and interpreted. COMPARISON: 06/06/2021 BREAST PARENCHYMAL COMPOSITION: There are scattered areas of fibroglandular density. FINDINGS: RIGHT BREAST: There is a possible mass in the posterior third of the lower inner breast 10 cm from th e nipple. LEFT BREAST: No suspicious mass, calcification, or architectural distortion are identified to suggest malignancy. There has been no suspicious interval change. IMPRESSION: 1. Possible right breast mass. 2. Additional mammographic views and possible breast ultrasound are recommended. BI-RADS Category 0: Incomplete: Needs additional imaging evaluation. Reviewed, dictated and finalized at location A. IMPRESSION: 1. Possible right breast mass. 2. Additional mammographic views and possible breast ultrasound are recommended . BI-RADS Category 0: Incomplete: Needs additional imaging evaluation.
== END 2022-12-18 09:25 | disposition home or self-care (01) ==
PROVIDERS: PCP Internal Medicine; Visit Provider Obstetrics & Gynecology
DX: Z12.31 Encounter for screening mammogram for malignant neoplasm of breast (principal); R92.8 Other abnormal and inconclusive findings on diagnostic imaging of breast
CPT/HCPCS: 77063; 77067

== ENCOUNTER 2023-01-19 06:37 | Outpatient (CLI) | payer OTHER, SELFPAY ==
--- NOTE | ~2023-01-19 | CT_ITS ---
CT scan of the Neck Technique: 2.5 mm axial scans were obtained through the neck after intravenous administration of 75 c c Omnipaque 350. Coronal and sagittal reconstructions of the neck were obtained. Dose reduction techn ique was used on this scan by utilizing automated exposure control and iterative reconstruction techn ique. The dose-length product (DLP) was 480.50 mGy-cm. Clinical History: Swelling, mass Findings: There is no evidence of any significant cervical lymphadenopathy. Several small, nonenlarged jugulo- digastric and posterior cervical lymph nodes are noted bilaterally. Parapharyngeal spaces appear norm al bilaterally. The parotid and submandibular glands appear normal. The pharyngeal mucosal spaces appear normal. No soft tissue masses are seen in the neck. There is evidence of prior thyroidectomy. There is a 2.2 x 0.6 cm ovoid masslike lesion just superfic ial to the right side of the thyroid cartilage, and the location of the BB, with avid homogeneous enh ancement (axial images 48-52).. Images of the lung apices reveal minimal subpleural reticulation. Impression: 2.2 x 0.6 cm avidly enhancing masslike ovoid lesion just superficial to the right side of the thyroid cartilage, at the location of the BB. Appearance suggests residual/ectopic thyroid tissue. Consider nuclear medicine thyroid uptake scan to confirm thyroid tissue. Possible minimal subpleural reticulation the lungs. Correlate for minimal chronic interstitial diseas e. Reviewed, dictated and finalized at [facility]. Impression: 2.2 x 0.6 cm avidly enhancing masslike ovoid lesion just superficial to the rig ht side of the thyroid cartilage, at the location of the BB. Appearance suggest s residual/ectopic thyroid tissue. Consider nuclear medicine thyroid uptake sca n to confirm thyroid tissue. Possible minimal subpleural reticulation the lungs. Correlate for minimal chron ic interstitial disease.
== END 2023-01-19 06:38 | disposition home or self-care (01) ==
PROVIDERS: PCP Internal Medicine; Visit Provider Clinical Nurse Specialist
DX: R22.1 Localized swelling, mass and lump, neck (principal)
CPT/HCPCS: 70491; Q9967

== ENCOUNTER 2023-01-19 12:57 | Outpatient (CLI) | payer OTHER, SELFPAY ==
--- NOTE | ~2023-01-19 | MMUS_ITS ---
EXAMINATION: MM diagnostic yudith RT w emily, US breast RT limited HISTORY: Follow-up right breast asymmetries. TECHNIQUE: Additional 3-D tomosynthesis images of the right breast were performed and synthetic 2-D i mages were generated. CAD analysis was submitted and interpreted. High resolution Limited right breas t ultrasound was performed. COMPARISON: Comparison to multiple prior studies sequentially, with oldest reviewed study dated 05/18. BREAST PARENCHYMAL COMPOSITION: Breast composed of scattered areas of fibroglandular density FINDINGS: MAMMOGRAPHIC FINDINGS: There is a focal asymmetry with architectural distortion in the lower inner quadrant of the right candis ast posteriorly. ULTRASOUND: Limited right breast ultrasound: Normal heterogeneous echotexture without focal solid or cystic mass. IMPRESSION: 1. Focal asymmetry lower inner quadrant of the right breast with architectural distortion. No sonogra phic correlate. 2. Recommend wire localization guided surgical biopsy. BI-RADS category 4, suspicious findings. Reviewed, dictated and finalized at location A. IMPRESSION: 1. Focal asymmetry lower inner quadrant of the right breast with architectural distortion. No sonographic correlate. 2. Recommend wire localization guided surgical biopsy. BI-RADS category 4, suspicious findings.
== END 2023-01-19 12:58 | disposition home or self-care (01) ==
LOC: ANHIMG 12:58
PROVIDERS: PCP Internal Medicine; Visit Provider Obstetrics & Gynecology
DX: R92.8 Other abnormal and inconclusive findings on diagnostic imaging of breast (principal)
CPT/HCPCS: 76642; 77061; 77065; G0279

== ENCOUNTER 2023-01-29 11:59 | Outpatient (CLI) | payer OTHER, SELFPAY ==
[2023-01-29 12:43] LABS: Basophils Absolute Auto 0.1 K/mm3 (0.0-0.1); Basophils Percent Auto 0.7 % (0.2-1.2); Eosinophils Absolute Auto 0.2 K/mm3 (0-0.3); Eosinophils Percent Auto 2.4 % (0-4.4); Hematocrit 42.2 % (37.0-47.0); Hemoglobin 14.7 g/dL (12.0-15.0); Immature Granulocyte Absolute 0.04 K/mm3 (0.00-0.031); Immature Granulocyte Percent A 0.6 % (0-0.5); Lymphocytes Absolute Auto 1.25 K/mm3 (0.9-3.2); Lymphocytes Percent Auto 17.6 % (18.3-44.2); Mean Corpuscular HGB Conc 34.8 g/dl (32-36); Mean Corpuscular Hemoglobin 33.3 pg (26-34); Mean Corpuscular Volume 95.7 fl (80-100); Mean Platelet Volume 8.9 fl (7.4-10.4); Monocytes Absolute Auto 0.8 K/mm3 (0.1-0.6); Monocytes Percent Auto 10.7 % (2.6-8.5); Neutrophils Absolute Auto 4.8 K/mm3 (1.3-6.7); Platelet Count Result 246 k/mm3 (150-375); Red Blood Count 4.41 M/mm3 (4.2-5.4); Red Cell Distribution Width 13.6 % (11.5-14.5); White Blood Count 7.1 K/mm3 (4.5-10.0)
[2023-01-29 13:15] LABS: Alanine Aminotransferase 24 U/L (6-35); Albumin Level 4.6 g/dL (3.5-5.1); Alkaline Phosphatase 47 U/L (38-126); Anion Gap 8 mmol/L (8-16); Aspartate Amino Transferase 31 U/L (14-36); Bilirubin,Total 0.5 mg/dL (0.2-1.3); Blood Urea Nitrogen 20 mg/dL (7-17); CRP 1.1 mg/dL (<1.0); Carbon Dioxide 32 mmol/L (22-30); Chloride 100 mmol/L (98-107); Estimated Glomerular Filt Rate > 60; Glucose 83 mg/dL (65-110); Potassium 4.3 mmol/L (3.4-5.0); Sodium 140 mmol/L (137-145)
== END 2023-01-29 12:00 | disposition home or self-care (01) ==
LOC: ANHLAB 12:03
PROVIDERS: PCP Internal Medicine; Visit Provider Internal Medicine
DX: M17.0 Bilateral primary osteoarthritis of knee (principal); M05.79 Rheumatoid arthritis with rheumatoid factor of multiple sites without organ or systems involvement; M54.50 Low back pain, unspecified
CPT/HCPCS: 36415; 80053; 85025; 86140

== ENCOUNTER 2023-03-04 13:39 | Outpatient (CLI) | payer OTHER, SELFPAY ==
--- NOTE | ~2023-03-04 | NM_ITS ---
EXAMINATION: NM thyroid scan w uptake DATE: 03/05/2023 14:52 INDICATION: Residual thyroid tissue status post thyroidectomy. COMPARISON: Neck CT 01/19/2023 TECHNIQUE: 0.329 mCi I-123 was administered orally. Scintigraphic images of the thyroid gland were o btained at 24 hours. Thyroid uptake was calculated by the technologist. FINDINGS: The thyroid uptake is 9% (normal 10-30%), with the right lobe measuring 7% uptake and the left 2%. IMPRESSION: 1. Residual or recurrent thyroid tissue in the postthyroidectomy bed correlating with the CT finding . Reviewed, dictated and finalized at location A. IMPRESSION: 1. Residual or recurrent thyroid tissue in the postthyroidectomy bed correlati ng with the CT finding.
== END 2023-03-04 13:40 | disposition home or self-care (01) ==
PROVIDERS: PCP Internal Medicine; Referring Provider Internal Medicine Endocrinology, Diabetes & Metabolism; Visit Provider Clinical Nurse Specialist
DX: R22.1 Localized swelling, mass and lump, neck (principal)
CPT/HCPCS: 78014; A9516

== ENCOUNTER 2023-03-06 15:01 | Outpatient (CLI) | payer OTHER, SELFPAY ==
[2023-03-06 15:58] LABS: Free T4 Free Thyroxine 0.66 ng/mL (0.78-2.19)
== END 2023-03-06 15:02 | disposition home or self-care (01) ==
LOC: ANHLAB 15:05
PROVIDERS: PCP Internal Medicine; Visit Provider Internal Medicine
DX: E03.9 Hypothyroidism, unspecified (principal)
CPT/HCPCS: 36415; 84439; 84443

== ENCOUNTER 2023-04-10 12:31 | Outpatient (CLI) | payer OTHER, SELFPAY ==
--- NOTE | ~2023-04-10 | MR_ITS ---
EXAMINATION: MR breast BI wo/w con INDICATION: Right breast cancer TECHNIQUE: None COMPARISON: None CONTRAST: Multihance, 20 cc BREAST COMPOSITION: Scattered fibroglandular tissue FINDINGS: RIGHT BREAST: There is minimal background parenchymal enhancement. There is an approximately 2.1 x 1. 8 x 1.5 cm irregular mass with spiculated margins and heterogeneous internal enhancement at the 5:00 location in the middle third of the breast 8 cm from the nipple. The mass demonstrates vascular enhan cement in the initial phase and washout in the delayed phase. LEFT BREAST: There is minimal background parenchymal enhancement. No abnormal enhancement is present after contrast administration. No pathologically enlarged axillary or internal mammary lymph nodes ar e identified. IMPRESSION: 1. Mass in the lower inner quadrant of the right breast, consistent with biopsy-proven malignancy. No additional suspicious MRI findings. BI-RADS category 6, known biopsy-proven malignancy. Reviewed, dictated and finalized at location A. IMPRESSION: 1. Mass in the lower inner quadrant of the right breast, consistent with biopsy -proven malignancy. No additional suspicious MRI findings. BI-RADS category 6, known biopsy-proven malignancy.
== END 2023-04-10 12:32 | disposition home or self-care (01) ==
PROVIDERS: PCP Internal Medicine; Visit Provider Surgery
DX: C50.911 Malignant neoplasm of unspecified site of right female breast (principal)
CPT/HCPCS: 77049; A9577; C8908

== ENCOUNTER 2023-04-14 16:27 | Outpatient (CLI) | payer OTHER, SELFPAY ==
--- NOTE | ~2023-04-14 | US_ITS ---
EXAMINATION: US thyroid DATE: 04/14/2023 16:50 INDICATION: Prior total thyroidectomy TECHNIQUE: Multiple ultrasound images of the thyroid were obtained. COMPARISON: None. FINDINGS: Hypoechoic tissue measuring 1.5 x 1.1 x 1.1 cm at the right thyroidectomy bed and 1.6 x 1.1 x 0.9 cm at the left thyroidectomy bed likely representing residual/recurrent thyroid tissue at the thyroidect jean-paul bed. No discrete nodules identified. IMPRESSION: 1. Residual or recurrent thyroid tissue in the postoperative bed on both the left and right. Reviewed, dictated and finalized at location A. IMPRESSION: 1. Residual or recurrent thyroid tissue in the postoperative bed on both the le ft and right.
== END 2023-04-14 16:28 | disposition home or self-care (01) ==
PROVIDERS: PCP Internal Medicine; Visit Provider Internal Medicine Endocrinology, Diabetes & Metabolism
DX: R22.1 Localized swelling, mass and lump, neck (principal); R49.0 Dysphonia
CPT/HCPCS: 76536

== ENCOUNTER 2023-04-27 09:23 | Outpatient (CLI) | payer OTHER, SELFPAY ==
--- NOTE | 2023-04-27 10:04 | ECG_ITS ---
Measurements Intervals Eunice Rate: 65 P: 59 MD: 148 QRS: 28 QRSD: 90 T: 7 QT: 403 QTc: 422 Interpretive Statements SINUS RHYTHM POSSIBLE LEFT ATRIAL ENLARGEMENT BORDERLINE ECG NO PREVIOUS ECG AVAILABLE FOR COMPARISON Electronically Signed On 04-27-2023 13:13:21 CDT by Montana Burnette D.O.
[2023-04-27 10:21] LABS: Hematocrit 41.4 % (37.0-47.0); Hemoglobin 14.1 g/dL (12.0-15.0)
[2023-04-27 10:47] LABS: Albumin Level 4.6 g/dL (3.5-5.1); Anion Gap 9 mmol/L (8-16); Blood Urea Nitrogen 23 mg/dL (7-17); Calcium 8.1 mg/dL (8.4-10.2); Carbon Dioxide 27 mmol/L (22-30); Chloride 104 mmol/L (98-107); Estimated Glomerular Filt Rate > 60; Glucose 108 mg/dL (65-110); Phosphorus 4.8 mg/dL (2.5-4.5); Potassium 4.7 mmol/L (3.4-5.0); Sodium 140 mmol/L (137-145)
[2023-04-27 11:02] LABS: Free T4 Free Thyroxine 1.51 ng/mL (0.78-2.19); Vitamin D 25 Hydroxy 88.2 ng/mL
[2023-04-27 12:41] LABS: Creatinine Urine 68.3 mg/dL
[2023-04-27 12:48] LABS: MALB Creatinine Ratio 11.4 mg/g (0-30); Microalbumin Urine Random 7.8 mg/L (0-16.7)
== END 2023-04-27 09:24 | disposition home or self-care (01) ==
PROVIDERS: Anesthesiology; PCP Internal Medicine; Referring Provider Internal Medicine Endocrinology, Diabetes & Metabolism; Visit Provider Internal Medicine
DX: E11.9 Type 2 diabetes mellitus without complications (principal); E89.0 Postprocedural hypothyroidism; E89.2 Postprocedural hypoparathyroidism; D64.9 Anemia, unspecified; I10 Essential (primary) hypertension; M17.0 Bilateral primary osteoarthritis of knee; M05.79 Rheumatoid arthritis with rheumatoid factor of multiple sites without organ or systems involvement; M54.50 Low back pain, unspecified; G89.29 Other chronic pain
CPT/HCPCS: 36415; 80069; 82043; 82306; 84439; 84443; 85014; 85018; 93005

== ENCOUNTER 2023-04-28 13:13 | Outpatient (CLI) | payer OTHER, SELFPAY ==
--- NOTE | ~2023-04-28 | MM_ITS ---
MM_MAGSEEDRT_MG DATE: 04/28/2023 13:55 INDICATION: Malignant neoplasm; preoperative mag seed localization of radiopaque breast marker TECHNIQUE: The purpose of the procedure, technique and potential complications were discussed with e patient. The patient verbalized understanding and gave consent. Timeout procedure was performed. The right breast was placed in compression in mediolateral position with the biopsy grid over the are a of interest at the lower inner quadrant. The skin was prepared with sterile solution. 1% lidocaine local anesthetic was administered to the skin and underlying subcutaneous tissues. A 5 cm mag seed needle was introduced from a medial approach into the breast. Needle physician in [facility] were adjusted based upon CC and subsequent ML mammographic exposures. The mag seed was deployed in immediate contiguity with the breast marker in both ML and CC projection s. The patient was very cooperative and tolerated the procedure well, without complaint or apparent comp lication. IMPRESSION: Preoperative lower inner quadrant right mag seed placement Reviewed, dictated and finalized at Location A. Reviewed, dictated and finalized at location A.
== END 2023-04-28 13:14 | disposition home or self-care (01) ==
PROVIDERS: PCP Internal Medicine; Visit Provider Physician Assistant Surgical
DX: C50.911 Malignant neoplasm of unspecified site of right female breast (principal); R92.8 Other abnormal and inconclusive findings on diagnostic imaging of breast
CPT/HCPCS: 19281; A4648

== ENCOUNTER 2023-04-29 01:51 | Day surgery (SDC) | payer OTHER, SELFPAY ==
[2023-04-24 14:15] VITALS: BMI 41.0
--- NOTE | 2023-04-24 14:20 | PC.NURSE ---
Report to the Outpatient Waiting Room, entrance under the green pavilion located off [facility], at time _1000_ on date _[id number]_. Planned Procedure Time: _1200_. Time changes happen often and if your time is changed the preop area will call you the afternoon before. - You and your visitor will be asked to self-screen and do not enter if you have any COVID symptoms. - A mask is optional within the hospital at this time. Patients may have clear liquids (water, carbonated beverages, clear teas, apple juice) until 3 hours prior to surgery with a maximum of 20 ounces. - No food from midnight until time of surgery Take the following medications with a SIP of water the morning of surgery: ___Carvidilol, Levothyroxine, and Enalapril DO NOT STOP ANY OF YOUR OTHER PRESCRIPTION MEDICATIONS PRIOR TO SURGERY ?EXCEPT THE FOLLOWING Medications to discontinue per physician All vitamins and supplements Date to take last tlsv___[phone] Please no make-up, nail eritrean, hairspray, perfume, deodorant, or body powder the day of surgery. No jewelry (including any body piercings) or valuables the day of surgery, leave them at home. Please take a shower or bath the night before, or the morning of, surgery with an antibacterial soap. Wear comfortable, loose fitting clothing. - Jewelry must be removed prior to entering the operating room. Rings and piercings that are not removed may be cut off. - The hospital will not accept responsibility for valuables. - Please leave all valuables, including medications, at home the day of surgery. If you are going home after surgery, a licensed explosives truck driver must drive you home. - NO public transportation without another adult if you receive anesthesia. - We recommend that an adult stay with you for 24 hours following discharge. - We also recommend that you do not drive, make important decision, drink alcoholic beverages, or take any drugs that were not prescribed by your health care provider for at least 24 hours after your discharge time. Follow any additional instructions given to you from your surgeon. If you or anyone in your household have experienced Covid symptoms in the past week, please notify your surgeon or the nurse liaison at the phone number below for possible testing. Telephone instructions given to _Patient___and asked if any additional questions and then verbalized understanding. Patient advised to call surgeon office or pre surgery nurse liaison [phone] if any additional questions.
--- NOTE | 2023-04-28 20:44 | WPDANESEPPF ---
Anes - Initial Pre Proc Eval Procedure: Operation Date: 04/29/23 12:00 Proposed Procedures p Right Breast Lumpectomy with Mag Seed Localization, - Amelia Whitt MD s Right Axillary [place] Lymph Node Biopsy, Lymphoseek Injection - Amelia Whitt MD Date/Time: 04/28/23 20:44 Surgeon: Ameila Whitt MD Pre Op Diagnosis: malignant neoplasm of unspecified site rt breast Patient Data Age: 57 Gender: F Height: 1.65 m Weight: 111.8 kg Allergies Allergy/AdvReac Type Severity Reaction Status Date / Time tetracycline Allergy Unknown Rash Verified 04/24/23 14:09 morphine AdvReac Mild Vomiting Verified 04/24/23 14:09 [id number] Reductase AdvReac Mild Muscle Pain Verified 04/24/23 14:09 Inhibitor Home Medications Medication Instructions Recorded Confirmed Type aspirin 81 mg tablet,delayed 81 mg PO DAILY 12/29/19 04/24/23 History release (Adult Low Dose Aspirin) calcium carbonate 500 mg calcium 1,000 mg PO BID 12/29/19 04/24/23 History (1,250 mg) tablet (Calcium 500) loratadine 10 mg tablet (Claritin) 10 mg PO DAILY 12/29/19 04/24/23 History magnesium oxide 800 mg PO BID 12/29/19 04/24/23 History omeprazole magnesium 20 mg 20 mg PO DAILY 12/29/19 04/24/23 History tablet,delayed release (Prilosec OTC) multivitamin 1 cap PO QAM 02/27/20 04/24/23 History fluticasone propionate 50 1 spray intranasal DAILY 08/30/20 04/24/23 History mcg/actuation nasal spray,suspension tramadol 50 mg tablet 50 mg PO TID PRN Pain 05/09/21 04/24/23 History blood-glucose meter (Blood Glucose #1 ea 09/17/21 04/21/23 Rx Monitoring kit) cyclobenzaprine 5 mg tablet 5 mg PO QHS PRN Insomnia 01/07/22 04/24/23 History blood sugar diagnostic (OneTouch #100 ea 03/27/22 04/21/23 Rx Verio test strips) cholecalciferol (vitamin D3) 25 50 mcg PO BID 03/27/22 04/24/23 History mcg (1,000 unit) capsule levothyroxine 150 mcg tablet See Rx Instructions .Route 03/27/22 04/24/23 Rx .COMPLEX #90 tabs lancets 33 gauge (ChandlerTouch Delica #100 ea 06/17/22 04/21/23 Rx Plus Lancet) ezetimibe 10 mg tablet See Rx Instructions .Route 09/07/22 04/24/23 Rx .COMPLEX #90 tabs acetaminophen 500 mg tablet 1,000 mg PO DAILY 10/27/22 04/24/23 History cephalexin 250 mg tablet 250 mg PO HS 10/27/22 04/24/23 History ferrous sulfate 325 mg (65 mg 325 mg PO EVERY OTHER DAY 10/27/22 04/24/23 History iron) tablet meloxicam 7.5 mg tablet 7.5 mg PO DAILY 10/27/22 04/24/23 History diltiazem HCl 180 mg See Rx Instructions .Route 12/01/22 04/24/23 Rx capsule,extended release 24 hr .COMPLEX #90 caps azathioprine 50 mg tablet 50 mg PO TID 12/04/22 04/24/23 History calcitriol 0.25 mcg capsule See Rx Instructions .Route 04/06/23 04/24/23 Rx .COMPLEX #360 caps carvedilol 12.5 mg tablet See Rx Instructions .Route 04/06/23 04/24/23 Rx .COMPLEX #180 tabs enalapril maleate 2.5 mg tablet See Rx Instructions .Route 04/06/23 04/24/23 Rx .COMPLEX #180 tabs zinc 50 mg tablet 50 mg PO Q48H 04/24/23 04/24/23 History Patient hx anesthesia problems: none Family hx anesthesia problems: none Results Review: All pre-operative results and documents have been reviewed as part of the pre-operative evaluation. [facility] Past Medical History Medical History Abdominal hernia Anemia Angina at rest Arthritis Atrial fibrillation Back pain BMI greater than 30 Breast cancer, right breast 2022, diagnosed age 57 CAD (coronary artery disease) COVID-19 DM w/o complication type II Dyslipidemia Endometrial polyp Hearing loss Heart attack Heart disease History of miscarriage x2 Hypercalcemia Hypertension Hypocalcemia Hypothyroidism, postop Kidney disease Lung nodule Obstructive sleep apnea Onychomycosis Paroxysmal atrial fibrillation Postmenopausal bleeding Postsurgical hypoparathyroidism Prolapse of female pelvic organs RA (rheumatoid arthritis) (~2004) Eran
[2023-04-29] VITALS (10 sets, daily range): BP systolic 113–129; BP diastolic 59–79; PULSE 71–85; RESP 12–18; TEMP 36.8; O2SAT 92–98
--- NOTE | ~2023-04-29 | MM_ITS ---
MM_FAXITRON_MG DATE: 04/29/2023 14:24 INDICATION: Surgical excision of Mag seed TECHNIQUE: Single mammographic exposure of surgical soft tissue specimen COMPARISON: None FINDINGS: Radiopaque biopsy marker and Mag seed are present centrally within the surgical soft tissue specimen. IMPRESSION: Successful surgical excision of mag seed and radiopaque biopsy marker Reviewed, dictated and finalized at Location A. Reviewed, dictated and finalized at location A. IMPRESSION: Successful surgical excision of mag seed and radiopaque biopsy sola er
--- NOTE | ~2023-04-29 | NM_ITS ---
.. NM sentinel node inject only DATE: 04/29/2023 11:59 INDICATION: Right breast malignancy TECHNIQUE: The purpose of the procedure, technique were explained to the patient. Timeout procedure confirmed proper patient, procedure and right breast. Four equally divided doses totaling 0.99 mCi 99m technetium Tilanocept were injected subdermally at 1 2:00, 3:00, 6:00 and 9:00 periareolar area. The patient was very cooperative and tolerated the procedure without complaint or apparent complicati on. IMPRESSION: Preoperative periareolar radiopharmaceutical subdermal injections for sentinel node local ization at surgery Reviewed, dictated and finalized at Location A. Reviewed, dictated and finalized at location A. IMPRESSION: Preoperative periareolar radiopharmaceutical subdermal injections f or sentinel node localization at surgery
[2023-04-29] MEDS: ACETAMINOPHEN 500 MG TABLET 1000 MG PO (10:55)
[2023-04-29] MEDS: LACTATED RINGERS 1,000 ML 30 ML IV CONT ×2 (11:05→14:46)
--- NOTE | 2023-04-29 11:06 | WPDHPUPDATE1 ---
History and Physical Update Update Date/Time: 04/29/23 11:06 History and Physical has been reviewed, including an updated exam of the patient. There are NO changes in the patient's condition. Risks, benefits, and alternatives have been discussed and questions answered. Patient agrees to proceed with procedure.
[2023-04-29] MEDS: ceFAZolin 2 GM/D5W 50 ML 2 GM/50 ML BAG IVPB (12:24)
[2023-04-29] MEDS: BUPIVACAINE/EPINEPHRINE 0.25% 10 ML VIAL 30 ML INFILTRATE (13:13)
--- NOTE | 2023-04-29 13:24 | SUR.OPER ---
[place] Node biopsy # 1 sent with NAVEEN Galicia and received in pathology by Aniyah
[2023-04-29] MEDS: METHYLENE BLUE 0.5% INJ 10 ML AMPULE IRRIGATION (13:26)
--- NOTE | 2023-04-29 14:34 | SUR.OPER ---
Specimens x 2 sent with NAVEEN Galicia and received in pathology by
--- NOTE | 2023-04-29 14:39 | W.PM.PROC2 ---
Procedure Note - Detailed Date of Procedure 04/29/23 Pre-op Diagnosis Right breast invasive mammary carcinoma with ductal and lobular features Post-op Diagnosis Same Procedure Performed 1. Injection of diluted methylene blue for sentinel lymph node mapping 2. Right axillary sentinel lymph node biopsy with dual tracer (lymphoseek and methylene blue) 3. Right breast lumpectomy Surgeon Amelia Whitt MD Chief Fundraising Officer Esha Jaffe PA-C Anesthesia General Indications 57-year-old female with newly diagnosed right breast invasive mammary carcinoma with both ductal and lobular features ER positive, MO positive, HER2 negative, grade 1, who presented for pre-operative visit.? MRI was obtained? and showed mass in the lower inner quadrant of the right breast consistent with biopsy-proven malignancy but no additional suspicious MRI findings on contralateral breast or ipsilateral.? Genetic test was negative for the? 10 high? 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 I explained to the patient that since she was negative for the breast panel, there would be no benefit in pursuing a contralateral prophylactic mastectomy at this point from a genetic standpoint unless she desired.? I briefly discussed with the patient options for surgical treatment for early stage breast cancer including breast conservation therapy with lumpectomy and adjuvant radiation versus mastectomy.? I also discussed with the patient that I would recommend sentinel lymph node biopsy at the same time of surgery.? I also discussed with the patient option for immediate reconstruction as well as contralateral? breast procedures for symmetry.? I also talked to patient in regards to multimodal treatment of breast cancer including referral to radiation oncology for further discussion regards to adjuvant radiation in case of lumpectomy,? as well as endocrine therapy which will be further discussed by Dr. Harvey.? Patient is very interested and breast conservation therapy with lumpectomy and at this point she would like to proceed with surgical planning for this.? Risks of the procedure were discussed with the patient which included but not limited to risk of bleeding, infection, positive margin, possible need for additional procedures in the future, recurrence, scar, pain, wound healing problems, asymmetry as well as the risk of anesthesia. All questions were answered patient agreed to proceed. Description of Procedure Patient was identified in the pre-operative area and brought to the OR suite. She underwent tumor localization previously by IR with magseed placement as well as injection of lymphoseek radiotracer by Nuclear Medicine. She was laid supine in the operating table and sequential compression devices were applied. General anesthesia was induced without difficulties. The right chest and axillary regions were prepped and draped in a sterile fashion. Dilated methylene blue (50%) was injected into the perioareolar sudermal region as a second tracer. The gamma probe was used to identify the area with highest radioactivity in the axilla, and a small incision was made overlying this area. Dissection was carried down through the subcutaneous tissue into the clavipectoral fascia, which was incised. The probe was again used to scan this area, and a hot and blue node was identified. This was carefully grasped and excised using the Ligasure device. The gamma probe was used to obtain a count of 195. The sentinel lymph node was sent to pathology as permanent specimen. The gamma probe was again used to identify any additional radioactive lymph nodes that 10% or greater count compared to the sentinel node, and no additional areas of significant radioactivity in the axilla were present. The wound was irrigated with saline and hemostasis was assured. The deep dermal layer was closed with 3-0 vicryl followed
[2023-04-29] MEDS: fentaNYL CITRATE INJ (*CRX) 100 MCG/2 ML VIAL 25 MCG IV PUSH ×4 (15:09→15:16)
[2023-04-29] MEDS: oxyCODONE HCL (*CRX) 5 MG TAB IR PO (16:09)
== END 2023-04-29 17:21 | disposition home or self-care (01) ==
PROVIDERS: PCP Internal Medicine; Visit Provider Surgery
PROC: (CPT 19301; principal; 2023-04-29 12:00)
PROC: (CPT 19301; 2023-04-29 12:00)
DX: C50.311 Malignant neoplasm of lower-inner quadrant of right female breast (principal); Z17.0 Estrogen receptor positive status [ER+]; I11.9 Hypertensive heart disease without heart failure; I48.0 Paroxysmal atrial fibrillation; E11.9 Type 2 diabetes mellitus without complications; G47.33 Obstructive sleep apnea (adult) (pediatric); I25.2 Old myocardial infarction; E89.0 Postprocedural hypothyroidism; I25.10 Atherosclerotic heart disease of native coronary artery without angina pectoris; E78.5 Hyperlipidemia, unspecified; M06.9 Rheumatoid arthritis, unspecified; Z95.5 Presence of coronary angioplasty implant and graft; Z87.891 Personal history of nicotine dependence; E66.01 Morbid (severe) obesity due to excess calories; Z68.39 Body mass index [BMI] 39.0-39.9, adult; Z79.82 Long term (current) use of aspirin
CPT/HCPCS: 19301; 38525; 38792; 76098; 88307; 88342; A9270; A9520; J0330; J0690; J1100; J2250; J2405; J2704; J3010; J7120; Q9968

== ENCOUNTER 2023-05-13 10:20 | Outpatient (CLI) | payer OTHER, SELFPAY ==
[2023-05-13 10:33] LABS: Basophils Absolute Auto 0.1 K/mm3 (0.0-0.1); Basophils Percent Auto 0.8 % (0.2-1.2); Eosinophils Absolute Auto 0.3 K/mm3 (0-0.3); Hematocrit 39.9 % (37.0-47.0); Hemoglobin 13.7 g/dL (12.0-15.0); Immature Granulocyte Absolute 0.05 K/mm3 (0.00-0.031); Immature Granulocyte Percent A 0.7 % (0-0.5); Lymphocytes Absolute Auto 0.96 K/mm3 (0.9-3.2); Lymphocytes Percent Auto 13.2 % (18.3-44.2); Mean Corpuscular HGB Conc 34.3 g/dl (32-36); Mean Corpuscular Hemoglobin 32.9 pg (26-34); Mean Corpuscular Volume 95.9 fl (80-100); Mean Platelet Volume 8.3 fl (7.4-10.4); Monocytes Absolute Auto 0.7 K/mm3 (0.1-0.6); Monocytes Percent Auto 9.9 % (2.6-8.5); Neutrophils Absolute Auto 5.2 K/mm3 (1.3-6.7); Neutrophils Percent Auto 71.4 % (45.5-73.1); Platelet Count Result 203 k/mm3 (150-375); Red Blood Count 4.16 M/mm3 (4.2-5.4); White Blood Count 7.3 K/mm3 (4.5-10.0)
[2023-05-13 11:39] LABS: Alanine Aminotransferase 26 U/L (6-35); Albumin Level 4.4 g/dL (3.5-5.1); Alkaline Phosphatase 46 U/L (38-126); Anion Gap 7 mmol/L (8-16); Aspartate Amino Transferase 26 U/L (14-36); Bilirubin,Total 0.5 mg/dL (0.2-1.3); Blood Urea Nitrogen 17 mg/dL (7-17); Calcium 8.2 mg/dL (8.4-10.2); Carbon Dioxide 30 mmol/L (22-30); Chloride 101 mmol/L (98-107); Estimated Glomerular Filt Rate > 60; Glucose 127 mg/dL (65-110); Potassium 4.4 mmol/L (3.4-5.0); Sodium 138 mmol/L (137-145)
[2023-05-16 10:25] LABS: CA 15-3 17 U/mL (<32)
== END 2023-05-13 10:21 | disposition home or self-care (01) ==
PROVIDERS: Internal Medicine; PCP Internal Medicine; Visit Provider Internal Medicine Hematology & Oncology
DX: C50.911 Malignant neoplasm of unspecified site of right female breast (principal)
CPT/HCPCS: 36415; 80053; 85025; 86300

== ENCOUNTER 2023-09-03 13:10 | Outpatient (CLI) | payer OTHER, SELFPAY ==
[2023-09-03 13:25] LABS: Basophils Absolute Auto 0.1 K/mm3 (0.0-0.1); Basophils Percent Auto 0.8 % (0.2-1.2); Eosinophils Absolute Auto 0.2 K/mm3 (0-0.3); Eosinophils Percent Auto 3.4 % (0-4.4); Hematocrit 41.1 % (37.0-47.0); Hemoglobin 14.1 g/dL (12.0-15.0); Immature Granulocyte Absolute 0.05 K/mm3 (0.00-0.031); Immature Granulocyte Percent A 0.8 % (0-0.5); Lymphocytes Absolute Auto 0.97 K/mm3 (0.9-3.2); Lymphocytes Percent Auto 16.4 % (18.3-44.2); Mean Corpuscular HGB Conc 34.3 g/dl (32-36); Mean Corpuscular Hemoglobin 32.6 pg (26-34); Mean Corpuscular Volume 95.1 fl (80-100); Mean Platelet Volume 8.3 fl (7.4-10.4); Monocytes Absolute Auto 0.7 K/mm3 (0.1-0.6); Neutrophils Percent Auto 67.6 % (45.5-73.1); Platelet Count Result 230 k/mm3 (150-375); Red Blood Count 4.32 M/mm3 (4.2-5.4); Red Cell Distribution Width 13.4 % (11.5-14.5); White Blood Count 5.9 K/mm3 (4.5-10.0)
[2023-09-03 16:40] LABS: Alanine Aminotransferase 25 U/L (6-35); Albumin Level 4.5 g/dL (3.5-5.1); Alkaline Phosphatase 57 U/L (38-126); Anion Gap 9 mmol/L (8-16); Aspartate Amino Transferase 33 U/L (14-36); Bilirubin,Total 0.6 mg/dL (0.2-1.3); Blood Urea Nitrogen 28 mg/dL (7-17); Calcium 8.4 mg/dL (8.4-10.2); Carbon Dioxide 28 mmol/L (22-30); Chloride 102 mmol/L (98-107); Estimated Glomerular Filt Rate > 60; Glucose 126 mg/dL (65-110); Potassium 4.2 mmol/L (3.4-5.0); Sodium 139 mmol/L (137-145)
[2023-09-09 07:17] LABS: CA 15-3 22 U/mL (<32)
== END 2023-09-03 13:11 | disposition home or self-care (01) ==
LOC: ANHLAB 13:14
PROVIDERS: PCP Internal Medicine; Visit Provider Internal Medicine Hematology & Oncology
DX: C50.911 Malignant neoplasm of unspecified site of right female breast (principal)
CPT/HCPCS: 36415; 80053; 85025; 86300

== ENCOUNTER 2023-09-07 12:21 | Outpatient (CLI) | payer OTHER, SELFPAY ==
--- NOTE | ~2023-09-07 | DEXA_ITS ---
Bone Density Report Name: HARVEY PONCE Age: 58 Sex: Female Ethnicity: White Date of : 1965 Indication: postmenopausal; screening for osteoporosis; height loss; cancer; rheumatoid arthritis; Referring Provider: LISA MUNSON Study: Bone densitometry was performed. Exam Date: September 07, 2023 Accession number: [id number] Bone Density: Region BMD T-score Z-score Classification AP Spine(L1-L4) 1.216 1.5 2.9 Normal Femoral Neck (Left) 0.986 1.2 2.5 Normal Total Hip (Left) 1.212 2.2 3.1 Normal Femoral Neck (Right) 0.938 0.8 2.0 Normal Total Hip (Right) 1.159 1.8 2.7 Normal Total Hip Mean 1.186 2.0 2.9 Normal World Health Organization criteria for BMD impression classify patients as: Normal (T-score at or above -1.0), Osteopenia (T-score between -1.0 and -2.5), or Osteoporosis (T-score at or below -2.5). 10-year Fracture Risk: FRAX not reported because: All T-scores for Spine Total, Hip Total, Femoral Neck at or above -1.0 Clinical Information Provided by Patient: Has rheumatoid arthritis Has used the following medications: Vitamin D, Calcium Has the following medical conditions: Cancer Patient maximum height was 67 Menopause Age: 53 No regular weight bearing exercise Onset of menses at age 13 Number of children 5 Impression: The patient has normal bone mass. Discussion: BONE DENSITY IS ABOVE THE MINIMUM DESIRABLE LEVEL AT ALL SKELETAL SITES TESTED. This patient?s bone mineral density is above the minimum desirable level (T-score -1.0 or better) at all sites measured. The patient should follow a healthful lifestyle (good nutrition with adequate calcium and vitamin D, and appropriate weight-bearing exercise). Follow-Up: Consider repeating this study in 5 years or sooner if there is some new clinical indication. Reported by: [facility] on 09/07/2023 12:46:00 PM. Reviewed, dictated and finalized at location AOmari [facility]
== END 2023-09-07 12:22 | disposition home or self-care (01) ==
PROVIDERS: PCP Internal Medicine; Visit Provider Internal Medicine Hematology & Oncology
DX: M81.0 Age-related osteoporosis without current pathological fracture (principal)
CPT/HCPCS: 77080

== ENCOUNTER 2023-10-09 12:27 | Outpatient (CLI) | payer OTHER, SELFPAY ==
[2023-10-09 12:52] LABS: Basophils Absolute Auto 0.1 K/mm3 (0.0-0.1); Basophils Percent Auto 0.9 % (0.2-1.2); Eosinophils Absolute Auto 0.3 K/mm3 (0-0.3); Eosinophils Percent Auto 4.2 % (0-4.4); Hematocrit 41.6 % (37.0-47.0); Immature Granulocyte Absolute 0.04 K/mm3 (0.00-0.031); Immature Granulocyte Percent A 0.6 % (0-0.5); Lymphocytes Absolute Auto 1.06 K/mm3 (0.9-3.2); Lymphocytes Percent Auto 16.4 % (18.3-44.2); Mean Corpuscular HGB Conc 33.7 g/dl (32-36); Mean Corpuscular Hemoglobin 32.6 pg (26-34); Mean Platelet Volume 8.6 fl (7.4-10.4); Monocytes Absolute Auto 0.7 K/mm3 (0.1-0.6); Monocytes Percent Auto 10.5 % (2.6-8.5); Neutrophils Absolute Auto 4.3 K/mm3 (1.3-6.7); Neutrophils Percent Auto 67.4 % (45.5-73.1); Platelet Count Result 238 k/mm3 (150-375); Red Blood Count 4.29 M/mm3 (4.2-5.4); Red Cell Distribution Width 13.4 % (11.5-14.5); White Blood Count 6.5 K/mm3 (4.5-10.0)
[2023-10-09 15:11] LABS: Alanine Aminotransferase 24 U/L (6-35); Albumin Level 4.6 g/dL (3.5-5.1); Alkaline Phosphatase 58 U/L (38-126); Anion Gap 9 mmol/L (8-16); Aspartate Amino Transferase 29 U/L (14-36); Bilirubin,Total 0.4 mg/dL (0.2-1.3); Blood Urea Nitrogen 26 mg/dL (7-17); CRP 0.7 mg/dL (<1.0); Calcium 8.4 mg/dL (8.4-10.2); Carbon Dioxide 26 mmol/L (22-30); Chloride 103 mmol/L (98-107); Estimated Glomerular Filt Rate > 60; Glucose 113 mg/dL (65-110); Potassium 4.3 mmol/L (3.4-5.0); Sodium 138 mmol/L (137-145)
== END 2023-10-09 12:28 | disposition home or self-care (01) ==
LOC: ANHLAB 12:29
PROVIDERS: Internal Medicine; PCP Internal Medicine; Visit Provider Internal Medicine Hematology & Oncology
DX: M17.0 Bilateral primary osteoarthritis of knee (principal); M05.79 Rheumatoid arthritis with rheumatoid factor of multiple sites without organ or systems involvement; M54.50 Low back pain, unspecified; G89.29 Other chronic pain
CPT/HCPCS: 36415; 80053; 85025; 86140

== ENCOUNTER 2023-10-19 11:57 | Outpatient (CLI) | payer OTHER, SELFPAY ==
--- NOTE | ~2023-10-19 | MM_ITS ---
EXAMINATION: MM diagnostic yudith BI w emliy HISTORY: Status post right partial mastectomy for breast cancer. TECHNIQUE: ML, MLO and CC 3-D tomosynthesis images of both breasts were performed and synthetic 2-D i mages were generated. CAD analysis was submitted and interpreted. COMPARISON: 04/10/2023 MRI breast examination 01/19/2023 diagnostic right mammogram and limited right breast ultrasound 12/2022, 06/06/2021ilateral screening mammogram examinations BREAST PARENCHYMAL COMPOSITION: There are scattered areas of fibroglandular density. FINDINGS: Surgical clips and ill-defined increased density are noted in the posterior lower inner bridget drant of the right breast, most consistent with postoperative change from partial mastectomy for [address] [facility] cancer. No suspicious mass or suspicious architectural distortion, malignant calcification, skin retraction o f either breast is detected. IMPRESSION: 1. Probable postoperative change, posterior lower inner quadrant of right breast 2. 6 month diagnostic right mammogram follow-up is recommended BI-RADS category 3, probably benign findings. Reviewed, dictated and finalized at location A. BACK HOST IMPRESSION: 1. Probable postoperative change, posterior lower inner quadrant of right breas t 2. 6 month diagnostic right mammogram follow-up is recommended BI-RADS category 3, probably benign findings.
== END 2023-10-19 11:58 | disposition home or self-care (01) ==
LOC: ANHIMG 12:01
PROVIDERS: PCP Internal Medicine; Visit Provider Physician Assistant Surgical
DX: C50.911 Malignant neoplasm of unspecified site of right female breast (principal); R92.8 Other abnormal and inconclusive findings on diagnostic imaging of breast
CPT/HCPCS: 77062; 77066; G0279

== ENCOUNTER 2023-10-24 07:22 | Outpatient (CLI) | payer OTHER, SELFPAY ==
[2023-10-24 08:28] LABS: Cholesterol 179 mg/dL (0-200); HDL Direct 46 mg/dL; Triglycerides 163 mg/dL (<150)
[2023-10-24 08:39] LABS: LDL Cholesterol Direct 114 mg/dL
== END 2023-10-24 07:23 | disposition home or self-care (01) ==
LOC: ANHLAB 07:24
PROVIDERS: PCP Internal Medicine; Visit Provider Internal Medicine Cardiovascular Disease
DX: E78.5 Hyperlipidemia, unspecified (principal)
CPT/HCPCS: 36415; 80061

== ENCOUNTER 2023-12-14 15:16 | Outpatient (CLI) | payer OTHER, SELFPAY ==
[2023-12-14 15:35] LABS: Basophils Absolute Auto 0.1 K/mm3 (0.0-0.1); Basophils Percent Auto 0.7 % (0.2-1.2); Eosinophils Absolute Auto 0.2 K/mm3 (0-0.3); Eosinophils Percent Auto 2.3 % (0-4.4); Hematocrit 40.4 % (37.0-47.0); Hemoglobin 13.7 g/dL (12.0-15.0); Immature Granulocyte Absolute 0.04 K/mm3 (0.00-0.031); Immature Granulocyte Percent A 0.6 % (0-0.5); Lymphocytes Absolute Auto 1.08 K/mm3 (0.9-3.2); Lymphocytes Percent Auto 15.8 % (18.3-44.2); Mean Corpuscular HGB Conc 33.9 g/dl (32-36); Mean Corpuscular Hemoglobin 32.5 pg (26-34); Mean Corpuscular Volume 95.7 fl (80-100); Mean Platelet Volume 8.4 fl (7.4-10.4); Monocytes Absolute Auto 0.7 K/mm3 (0.1-0.6); Monocytes Percent Auto 9.8 % (2.6-8.5); Neutrophils Absolute Auto 4.9 K/mm3 (1.3-6.7); Neutrophils Percent Auto 70.8 % (45.5-73.1); Platelet Count Result 237 k/mm3 (150-375); Red Blood Count 4.22 M/mm3 (4.2-5.4); Red Cell Distribution Width 13.4 % (11.5-14.5); White Blood Count 6.9 K/mm3 (4.5-10.0)
[2023-12-14 17:04] LABS: Alanine Aminotransferase 29 U/L (6-35); Albumin Level 4.8 g/dL (3.5-5.1); Alkaline Phosphatase 57 U/L (38-126); Anion Gap 9 mmol/L (4-12); Aspartate Amino Transferase 47 U/L (14-36); Bilirubin,Total 0.6 mg/dL (0.2-1.3); Blood Urea Nitrogen 25 mg/dL (7-17); Calcium 8.1 mg/dL (8.4-10.2); Carbon Dioxide 26 mmol/L (22-30); Chloride 103 mmol/L (98-107); Estimated Glomerular Filt Rate 51; Glucose 115 mg/dL (65-110); Potassium 4.1 mmol/L (3.4-5.0); Sodium 138 mmol/L (137-145)
[2023-12-16 06:44] LABS: CA 15-3 20 U/mL (<32)
== END 2023-12-14 15:17 | disposition home or self-care (01) ==
LOC: ANHLAB 15:20
PROVIDERS: PCP Internal Medicine; Visit Provider Internal Medicine Hematology & Oncology
DX: C50.911 Malignant neoplasm of unspecified site of right female breast (principal)
CPT/HCPCS: 36415; 80053; 85025; 86300

== ENCOUNTER 2024-01-19 15:49 | Outpatient (CLI) | payer OTHER, SELFPAY ==
[2024-01-19 16:06] LABS: Basophils Absolute Auto 0.1 K/mm3 (0.0-0.1); Basophils Percent Auto 0.9 % (0.2-1.2); Eosinophils Absolute Auto 0.2 K/mm3 (0-0.3); Eosinophils Percent Auto 2.6 % (0-4.4); Hematocrit 42.7 % (37.0-47.0); Hemoglobin 14.5 g/dL (12.0-15.0); Immature Granulocyte Absolute 0.03 K/mm3 (0.00-0.031); Immature Granulocyte Percent A 0.5 % (0-0.5); Lymphocytes Absolute Auto 1.03 K/mm3 (0.9-3.2); Lymphocytes Percent Auto 15.5 % (18.3-44.2); Mean Corpuscular Hemoglobin 31.9 pg (26-34); Mean Corpuscular Volume 94.1 fl (80-100); Mean Platelet Volume 8.7 fl (7.4-10.4); Monocytes Absolute Auto 0.6 K/mm3 (0.1-0.6); Monocytes Percent Auto 9.2 % (2.6-8.5); Neutrophils Absolute Auto 4.7 K/mm3 (1.3-6.7); Neutrophils Percent Auto 71.3 % (45.5-73.1); Platelet Count Result 266 k/mm3 (150-375); Red Blood Count 4.54 M/mm3 (4.2-5.4); Red Cell Distribution Width 13.2 % (11.5-14.5); White Blood Count 6.6 K/mm3 (4.5-10.0)
[2024-01-19 16:51] LABS: Alanine Aminotransferase 27 U/L (6-35); Albumin Level 4.8 g/dL (3.5-5.1); Alkaline Phosphatase 60 U/L (38-126); Anion Gap 11 mmol/L (4-12); Aspartate Amino Transferase 30 U/L (14-36); Bilirubin,Total 0.6 mg/dL (0.2-1.3); Blood Urea Nitrogen 26 mg/dL (7-17); CRP 0.8 mg/dL (<1.0); Calcium 8.3 mg/dL (8.4-10.2); Carbon Dioxide 25 mmol/L (22-30); Chloride 104 mmol/L (98-107); Estimated Glomerular Filt Rate 57; Glucose 117 mg/dL (65-110); Potassium 4.2 mmol/L (3.4-5.0); Sodium 140 mmol/L (137-145)
== END 2024-01-19 15:50 | disposition home or self-care (01) ==
LOC: ANHLAB 15:56
PROVIDERS: Internal Medicine; PCP Internal Medicine; Visit Provider Internal Medicine Hematology & Oncology
DX: M54.50 Low back pain, unspecified (principal); M17.0 Bilateral primary osteoarthritis of knee; M05.79 Rheumatoid arthritis with rheumatoid factor of multiple sites without organ or systems involvement; G89.29 Other chronic pain
CPT/HCPCS: 36415; 80053; 85025; 86140

== ENCOUNTER 2024-03-29 07:49 | Outpatient (CLI) | payer OTHER, SELFPAY ==
[2024-03-29 08:23] LABS: Basophils Percent Auto 0.5 % (0.2-1.2); Eosinophils Absolute Auto 0.1 K/mm3 (0-0.3); Eosinophils Percent Auto 2.1 % (0-4.4); Hematocrit 42.7 % (37.0-47.0); Hemoglobin 14.5 g/dL (12.0-15.0); Immature Granulocyte Absolute 0.04 K/mm3 (0.00-0.031); Immature Granulocyte Percent A 0.7 % (0-0.5); Lymphocytes Absolute Auto 0.74 K/mm3 (0.9-3.2); Lymphocytes Percent Auto 12.1 % (18.3-44.2); Mean Corpuscular Hemoglobin 32.2 pg (26-34); Mean Corpuscular Volume 94.7 fl (80-100); Mean Platelet Volume 8.5 fl (7.4-10.4); Monocytes Absolute Auto 0.6 K/mm3 (0.1-0.6); Monocytes Percent Auto 9.5 % (2.6-8.5); Neutrophils Absolute Auto 4.6 K/mm3 (1.3-6.7); Neutrophils Percent Auto 75.1 % (45.5-73.1); Platelet Count Result 248 k/mm3 (150-375); Red Blood Count 4.51 M/mm3 (4.2-5.4); White Blood Count 6.1 K/mm3 (4.5-10.0)
[2024-03-29 10:33] LABS: Alanine Aminotransferase 28 U/L (6-35); Albumin Level 4.6 g/dL (3.5-5.1); Alkaline Phosphatase 59 U/L (38-126); Anion Gap 10 mmol/L (4-12); Aspartate Amino Transferase 31 U/L (14-36); Bilirubin,Total 0.5 mg/dL (0.2-1.3); Blood Urea Nitrogen 19 mg/dL (7-17); CRP 1.3 mg/dL (<1.0); Carbon Dioxide 29 mmol/L (22-30); Chloride 100 mmol/L (98-107); Estimated Glomerular Filt Rate > 60; Glucose 120 mg/dL (65-110); Potassium 4.3 mmol/L (3.4-5.0); Sodium 139 mmol/L (137-145)
[2024-03-29 10:41] LABS: Free T4 Free Thyroxine 1.23 ng/mL (0.78-2.19)
[2024-03-29 12:41] LABS: Creatinine Urine 35.2 mg/dL
[2024-03-29 12:46] LABS: Microalbumin Urine Random 10.9 mg/L (0-16.7)
== END 2024-03-29 07:50 | disposition home or self-care (01) ==
LOC: ANHLAB 07:51
PROVIDERS: Internal Medicine; Internal Medicine Endocrinology, Diabetes & Metabolism; PCP Internal Medicine; Visit Provider Internal Medicine Hematology & Oncology
DX: R22.1 Localized swelling, mass and lump, neck (principal); R49.0 Dysphonia; E11.9 Type 2 diabetes mellitus without complications; E89.0 Postprocedural hypothyroidism; E89.2 Postprocedural hypoparathyroidism; M17.0 Bilateral primary osteoarthritis of knee; M05.79 Rheumatoid arthritis with rheumatoid factor of multiple sites without organ or systems involvement; G89.29 Other chronic pain
CPT/HCPCS: 36415; 80053; 82043; 84439; 84443; 85025; 86140

== ENCOUNTER 2024-04-12 16:35 | Outpatient (CLI) | payer OTHER, SELFPAY ==
--- NOTE | ~2024-04-12 | US_ITS ---
US thyroid 04/12/2024 17:14 Indication: Neck swelling Procedure: Multiple ultrasound thyroid images of the thyroid bed obtained Comparison: Ultrasound dated 04/14/2023 Findings: There is hypoechoic soft tissue in the thyroid bed bilaterally measuring 1.2 x 1.2 x 1 cm o n the right and 1.9 x 0.8 x 0.9 cm on the left. No discrete mass identified. Likely represents residu al thyroid tissue. No discrete nodules. Impression: 1: Hypoechoic soft tissue in the thyroid bed bilaterally, most likely residual thyroid tissue. No dis crete nodule. Reviewed, dictated and finalized at location B. Impression: 1: Hypoechoic soft tissue in the thyroid bed bilaterally, most likely residual thyroid tissue. No discrete nodule.
== END 2024-04-12 16:36 | disposition home or self-care (01) ==
LOC: ANHIMG 16:35
PROVIDERS: PCP Internal Medicine; Visit Provider Internal Medicine Endocrinology, Diabetes & Metabolism
DX: R22.1 Localized swelling, mass and lump, neck (principal); Z90.09 Acquired absence of other part of head and neck
CPT/HCPCS: 76536

== ENCOUNTER 2024-04-19 10:12 | Outpatient (CLI) | payer OTHER, SELFPAY ==
--- NOTE | ~2024-04-19 | MM_ITS ---
EXAMINATION: MM diagnostic yudith RT w emily HISTORY: Previous lumpectomy for right breast cancer TECHNIQUE: Additional 3-D tomosynthesis images of the right breast were performed and synthetic 2-D i mages were generated. CAD analysis was submitted and interpreted. COMPARISON: None BREAST PARENCHYMAL COMPOSITION: Not dense: There are scattered areas of fibroglandular density. FINDINGS: Stable postsurgical changes in the lower inner quadrant of the right breast. No new masses, calcifications or architectural distortion in the right breast to suggest malignancy. IMPRESSION: 1. No mammographic evidence for malignancy in the right breast. 2. Routine yearly screening mammogram and regular clinical breast examination are recommended. BI-RADS Category 2: Benign finding(s). Reviewed, dictated and finalized at location B. IMPRESSION: 1. No mammographic evidence for malignancy in the right breast. 2. Routine yearly screening mammogram and regular clinical breast examination a re recommended. BI-RADS Category 2: Benign finding(s).
== END 2024-04-19 10:13 | disposition home or self-care (01) ==
LOC: ANHIMG 10:13
PROVIDERS: PCP Internal Medicine; Visit Provider Physician Assistant Surgical
DX: N63.14 Unspecified lump in the right breast, lower inner quadrant (principal)
CPT/HCPCS: 77061; 77065; G0279

== ENCOUNTER 2024-05-03 07:50 | Outpatient (CLI) | payer OTHER, SELFPAY ==
[2024-05-03 08:19] LABS: Basophils Absolute Auto 0.1 K/mm3 (0.0-0.1); Basophils Percent Auto 0.7 % (0.2-1.2); Eosinophils Absolute Auto 0.1 K/mm3 (0-0.3); Eosinophils Percent Auto 1.4 % (0-4.4); Hematocrit 42.2 % (37.0-47.0); Hemoglobin 14.5 g/dL (12.0-15.0); Immature Granulocyte Absolute 0.05 K/mm3 (0.00-0.031); Immature Granulocyte Percent A 0.7 % (0-0.5); Lymphocytes Absolute Auto 0.72 K/mm3 (0.9-3.2); Lymphocytes Percent Auto 10.4 % (18.3-44.2); Mean Corpuscular HGB Conc 34.4 g/dl (32-36); Mean Corpuscular Hemoglobin 31.9 pg (26-34); Mean Platelet Volume 8.3 fl (7.4-10.4); Monocytes Absolute Auto 0.6 K/mm3 (0.1-0.6); Neutrophils Absolute Auto 5.4 K/mm3 (1.3-6.7); Neutrophils Percent Auto 77.8 % (45.5-73.1); Platelet Count Result 246 k/mm3 (150-375); Red Blood Count 4.54 M/mm3 (4.2-5.4); White Blood Count 6.9 K/mm3 (4.5-10.0)
[2024-05-03 10:40] LABS: Alanine Aminotransferase 27 U/L (6-35); Albumin Level 4.8 g/dL (3.5-5.1); Alkaline Phosphatase 61 U/L (38-126); Anion Gap 12 mmol/L (4-12); Aspartate Amino Transferase 35 U/L (14-36); Bilirubin,Total 0.6 mg/dL (0.2-1.3); Blood Urea Nitrogen 19 mg/dL (7-17); Calcium 8.1 mg/dL (8.4-10.2); Carbon Dioxide 28 mmol/L (22-30); Chloride 99 mmol/L (98-107); Estimated Glomerular Filt Rate > 60; Glucose 135 mg/dL (65-110); Potassium 4.4 mmol/L (3.4-5.0); Sodium 139 mmol/L (137-145)
[2024-05-03 10:41] LABS: Albumin Level 4.9 g/dL (3.5-5.1); Anion Gap 11 mmol/L (4-12); Blood Urea Nitrogen 19 mg/dL (7-17); Calcium 8.2 mg/dL (8.4-10.2); Carbon Dioxide 28 mmol/L (22-30); Chloride 100 mmol/L (98-107); Estimated Glomerular Filt Rate > 60; Glucose 137 mg/dL (65-110); Phosphorus 4.9 mg/dL (2.5-4.5); Potassium 4.4 mmol/L (3.4-5.0); Sodium 139 mmol/L (137-145)
[2024-05-03 10:54] LABS: Vitamin D 25 Hydroxy 71.8 ng/mL
[2024-05-06 11:09] LABS: Ionized Calcium 4.6 mg/dL (4.7-5.5)
[2024-05-06 12:19] LABS: CA 15-3 23 U/mL (<32)
== END 2024-05-03 07:51 | disposition home or self-care (01) ==
LOC: ANHLAB 07:53
PROVIDERS: PCP Internal Medicine; Referring Provider Internal Medicine Endocrinology, Diabetes & Metabolism; Visit Provider Internal Medicine Hematology & Oncology
DX: C50.911 Malignant neoplasm of unspecified site of right female breast (principal); E89.2 Postprocedural hypoparathyroidism; E55.9 Vitamin D deficiency, unspecified
CPT/HCPCS: 36415; 80053; 80069; 82306; 82330; 85025; 86300

== ENCOUNTER 2024-06-23 07:50 | Outpatient (CLI) | payer OTHER, SELFPAY ==
[2024-06-23 09:45] LABS: Albumin Level 4.4 g/dL (3.5-5.1); Anion Gap 9 mmol/L (4-12); Blood Urea Nitrogen 23 mg/dL (7-17); Calcium 9.3 mg/dL (8.4-10.2); Carbon Dioxide 27 mmol/L (22-30); Chloride 103 mmol/L (98-107); Estimated Glomerular Filt Rate > 60; Glucose 137 mg/dL (65-110); Phosphorus 4.6 mg/dL (2.5-4.5); Potassium 4.4 mmol/L (3.4-5.0); Sodium 139 mmol/L (137-145)
== END 2024-06-23 07:51 | disposition home or self-care (01) ==
PROVIDERS: Internal Medicine Endocrinology, Diabetes & Metabolism; PCP Internal Medicine; Visit Provider Internal Medicine Hematology & Oncology
DX: E89.2 Postprocedural hypoparathyroidism (principal)
CPT/HCPCS: 36415; 80069; 82330

== ENCOUNTER 2024-07-02 09:25 | Outpatient (CLI) | payer OTHER, SELFPAY ==
--- NOTE | ~2024-07-02 | US_ITS ---
EXAMINATION: US pelvic complete w TV DATE: 07/02/2024 10:37 INDICATION: N95.0 - Postmenopausal bleeding TECHNIQUE: Multiple transabdominal and endovaginal sonographic images of the pelvis were obtained. COMPARISON: 09/19/2022; CT abdomen pelvis 11/20/2022. FINDINGS: Uterus: 8.9 x 4.4 x 6.0 cm. Heterogeneous 1.7 cm myometrial focus in the uterine body. Heterogeneous uterine parenchyma. 5 mm hypoechoic focus adjacent to the endometrium in the uterine body. Endometria l complex measures 6 mm. Right Ovary: 1.3 x 1.0 x 1.2 cm. Vascular flow is present. No adnexal mass Left Ovary: Not visualized. No adnexal mass. There is no free fluid in the pelvis. IMPRESSION: Endometrial thickening, recommend endometrial sampling. Possible 1.7 cm myometrial uterine fibroid. 5 mm hypoechoic focus adjacent to the endometrium in the uterine body, may represent a small fibroid. Heterogeneous uterine parenchyma, as can be seen with adenomyosis. Reviewed, dictated and finalized at location K. AL TRANSPORTATION MANAGER IMPRESSION: Endometrial thickening, recommend endometrial sampling. Possible 1.7 cm myometrial uterine fibroid. 5 mm hypoechoic focus adjacent to the endometrium in the uterine body, may repr esent a small fibroid. Heterogeneous uterine parenchyma, as can be seen with adenomyosis.
== END 2024-07-02 09:26 | disposition home or self-care (01) ==
LOC: ANHIMG 09:27
PROVIDERS: PCP Internal Medicine; Visit Provider Obstetrics & Gynecology
DX: N95.0 Postmenopausal bleeding (principal)
CPT/HCPCS: 76830; 76856

== ENCOUNTER 2024-07-19 09:00 | Outpatient (CLI) | payer OTHER, SELFPAY ==
[2024-07-19 09:19] LABS: Basophils Percent Auto 0.5 % (0.2-1.2); Eosinophils Absolute Auto 0.2 K/mm3 (0-0.3); Hematocrit 41.5 % (37.0-47.0); Hemoglobin 14.2 g/dL (12.0-15.0); Immature Granulocyte Absolute 0.05 K/mm3 (0.00-0.031); Immature Granulocyte Percent A 0.6 % (0-0.5); Lymphocytes Absolute Auto 0.84 K/mm3 (0.9-3.2); Lymphocytes Percent Auto 10.3 % (18.3-44.2); Mean Corpuscular HGB Conc 34.2 g/dl (32-36); Mean Corpuscular Hemoglobin 31.8 pg (26-34); Mean Platelet Volume 8.1 fl (7.4-10.4); Monocytes Absolute Auto 0.8 K/mm3 (0.1-0.6); Monocytes Percent Auto 9.7 % (2.6-8.5); Neutrophils Absolute Auto 6.3 K/mm3 (1.3-6.7); Neutrophils Percent Auto 76.9 % (45.5-73.1); Platelet Count Result 242 k/mm3 (150-375); Red Blood Count 4.46 M/mm3 (4.2-5.4); Red Cell Distribution Width 12.9 % (11.5-14.5); White Blood Count 8.2 K/mm3 (4.5-10.0)
[2024-07-19 13:02] LABS: Alanine Aminotransferase 25 U/L (6-35); Albumin Level 4.6 g/dL (3.5-5.1); Alkaline Phosphatase 56 U/L (38-126); Anion Gap 6 mmol/L (4-12); Aspartate Amino Transferase 33 U/L (14-36); Bilirubin,Total 0.5 mg/dL (0.2-1.3); Blood Urea Nitrogen 31 mg/dL (7-17); Calcium 10.1 mg/dL (8.4-10.2); Carbon Dioxide 30 mmol/L (22-30); Chloride 104 mmol/L (98-107); Estimated Glomerular Filt Rate 57; Glucose 120 mg/dL (65-110); Potassium 4.7 mmol/L (3.4-5.0); Sodium 140 mmol/L (137-145)
== END 2024-07-19 09:01 | disposition home or self-care (01) ==
LOC: ANHLAB 09:01
PROVIDERS: PCP Internal Medicine
DX: M17.0 Bilateral primary osteoarthritis of knee (principal); M05.79 Rheumatoid arthritis with rheumatoid factor of multiple sites without organ or systems involvement; M54.50 Low back pain, unspecified; G89.29 Other chronic pain
CPT/HCPCS: 36415; 80053; 85025; 86140

== ENCOUNTER 2024-08-23 08:15 | Outpatient (CLI) | payer OTHER, SELFPAY ==
[2024-08-23 13:19] LABS: Albumin Level 4.8 g/dL (3.5-5.1); Anion Gap 9 mmol/L (4-12); Blood Urea Nitrogen 22 mg/dL (7-17); Calcium 9.4 mg/dL (8.4-10.2); Carbon Dioxide 30 mmol/L (22-30); Chloride 102 mmol/L (98-107); Estimated Glomerular Filt Rate > 60; Glucose 136 mg/dL (65-110); Phosphorus 5.2 mg/dL (2.5-4.5); Potassium 4.9 mmol/L (3.4-5.0); Sodium 141 mmol/L (137-145)
[2024-08-24 10:24] LABS: Ionized Calcium 4.9 mg/dL (4.7-5.5)
--- OUTSIDE RECORDS SUMMARY | 2024-08-29 20:27 | XMS_ITS | Encounter Summary ---
Author Organization [facility] [employer] Address [address] [place] [address] Care Team Providers Care Rough Rice Tender Name Role Phone Carlton Brooks Primary Care Provider Encounter Details Date Type Department Care Team (Late Contact Info) Description 05/04/[address] [facility] Oncology and Hematology Amari [address] [place] [address] Venkata Harvey MD [address] [place] [address] [employer] [address] Social History Tobacco Use Types Packs/Day Years Used Date Smoking Tobacco: Never Smokeless Tobacco: Never Alcohol Use Standard Drinks/Week Comments Yes 0 (1 standard drink = 0.6 oz pur e alcohol) socially Sex and Gender Information Value Date Recorded Sex Assigned at Not on file Gender Identity Not on file Sexual Orientation Not on file documented as of this encounter Plan of Treatment Upcoming Encounters Date Type Department Care Team (Late Contact Info) Description 02/08/2025 3:45 PM CDT Office Visit [facility] Oncology and Hematology - Amari [address] [place] [address] Venkata Harvey MD [address] [place] [address] [employer] [place] [id number] documented as of this encounter Procedures Procedure Name Priority Date/Time Associated Diagnosis Comments BASIC METABOLIC PANEL Routine 05/03/2024 11:59 AM CDT CBC WITH DIFFERENTIAL Routine 05/03/2024 11:14 AM CDT documented in this encounter Results * BASIC METABOLIC PANEL (05/03/2024 11:59 AM CDT) Blood Venkata Harvey MD CHEMISTRY ORDERABLES * CBC WITH DIFFERENTIAL (05/03/2024 11:14 AM CDT) Blood Venkata Harvey MD HEMATOLOGY ORDERABLE S documented in this encounter Visit Diagnoses Not on filedocumented in this encounter Care Teams Rough Rice Tender Relationship Specialty Start Date End Date Carlton Brooks DO [address] [address] PCP - General Internal Medicine 04/21/23 documented as of this encounter
--- OUTSIDE RECORDS SUMMARY | 2024-08-29 20:27 | XMS_ITS | Encounter Summary ---
Author Organization [facility] Address [address] [place] [address] Care Team Providers Care Candle Maker Name Role Phone Carlton Brooks DO Primary Care Provider Encounter Details Date Type Department Care Team (Late st Contact Info) Description 04/06/2024 External Device Data [facility] ABSTRACTION Provider, Abstract NO ADDRESS ON FILE Social History Tobacco Use Types Packs/Day Years [...] Encounters Date Type Department Care Team (Late st Contact Info) Description 02/08/2025 3:45 PM CDT Office Visit [facility] Oncology and Hematology - Amari [address] [facility] [address] [place] [address] Venkata Harvey MD [address] [facility] [address] [place] [address] documented as of this encounter Visit Diagnoses Not on filedocumented in this encounter Care Teams Candle Maker Relationship Specialty Start Date End Date Carlton Brooks DO [address] [facility] [address] [place] [address] PCP - General Internal Medicine 04/21/23 documented as of this encounter
--- OUTSIDE RECORDS SUMMARY | 2024-08-29 20:27 | XMS_ITS | Encounter Summary ---
Author Organization [facility] [employer] Address [address] [place] [address] Care Team Providers Care Eyeletter Name Role Phone Carlton Brooks Primary Care Provider Reason for Visit * Reason Comments Follow Up Cancer Encounter Details Date Type Department Care Team (Late st Contact Info) Description 07/14/2023 3:45 PM USABILITY STRATEGIST Office Visit [facility] ([facility] Oncology and Hematology - [place] [address] [facility] [address] [place] [address] Venkata Harvey MD [address] [facility] [address] [place] [address] Malignant neoplasm of right female breast, unspecified estrogen receptor status, unspecified site of breast (Primary Dx); Osteoporosis, unspecified osteoporosis type, unspecified pathological fracture presence Social History Tobacco Use Types Packs/Day Years Used Date Smoking Tobacco: Never Smokeless Tobacco: Never Tobacco Cessation:Counseling Given: Not Answered Alcohol Use Standard Drinks/Week Comments Yes 0 (1 standard drink = 0.6 oz pur e alcohol) socially Sex and Gender Information Value Date Recorded Sex Assigned at Not on file Gender Identity Not on file Sexual Orientation Not on file documented as of this encounter Last Filed Vital Signs Vital Sign Reading Time Taken Comments Blood Pressure 120/73 07/14/2023 3:36 PM USABILITY STRATEGIST Pulse 82 07/14/2023 3:36 PM USABILITY STRATEGIST Temperature 35.9 ??C (96.7 ??F) 07/14/2023 3:36 PM CS T Respiratory Rate 16 07/14/2023 3:36 PM USABILITY STRATEGIST Oxygen Saturation 98% 07/14/2023 3:36 PM USABILITY STRATEGIST Inhaled Oxygen Concentration - - Weight 116.6 kg (257 lb) 07/14/2023 3:36 PM USABILITY STRATEGIST Height - - Body Mass Index 42.77 04/21/2023 2:55 PM CDT documented in this encounter Progress Notes * Venkata Harvey MD - 07/14/2023 4:18 PM CST HEMATOLOGY / ONCOLOGY PROGRESS NOTE Patient Identification: Name: Zuri Garces Age: 57 y.o. 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 Tumor was 0.8 cm in 1 sentinel lymph node negative. Oncotype DX recurrence score 20 CURRENT TREATMENT Patient started radiation therapy on June 14, 2023 TREATMENT HISTORY Radiation therapy to the right breast completed July 14, 2023 SUBJECTIVE Patient to the office for follow-up visit. She has completed radiation therapy treatment today. Sheis feeling good without any discomfort. She has some redness around the site of radiation therapy otherwise no other new complaints. Review of system Constitutional: Patient did not mention fevers, sweats, fatigue, malaise, weight loss HEENT: Patient did not mention sinus congestion, hearing or vision problems Respiratory: Patient did not mention cough, dyspnea, wheeze Cardiovascular: Patient did not mention chest pain, exertional chest pressure/discomfort, nausea, syncope, shortness of breath GI: Patient did not mention constipation, diarrhea, dsyphagia, reflux symptoms, vomiting, melena : Patient did not mention dysuria, frequency, incontinence, urgency Integumentary system: no lymphadenopathy, sweats, flushing Musculoskeletal: Patient not mention: myalgia, arthralgia Neurological: Patient did not mention blurry or disturbed vision, numbness/weakness, dizziness Skin: No lumps, bumps or rashes. Point review of system was reviewed Objective: Vital signs in last 24 hours: As per nursing note Exam: General appearance: alert, cooperative, no distress, appears stated age Head: normocephalic, without obvious abnormality, atraumatic Eyes: conjunctivae/corneas clear, EOM's intact Ears: normal external ear canals AU Nose: Nares normal. Septum midline. Mucosa normal. No drainage or sinus tenderness Throat: Lips, mucosa, and tongue normal. Teeth and gums normal Neck: supple, symmetrical, trachea midline. Lungs: clear to auscultation bilaterally Heart: regular rate and rhythm, S1, S2 normal, no murmur, click, rub or gallop Abdomen: soft, non-tender. Bowel sounds normal. No masses, No organomegaly Extremities: extremities normal, atraumatic, no cyanosis or edema Skin: Skin color, texture, turgor normal. No rashes or lesions Lymph nodes: No lymphadenopathy Neuro: No obvious focal deficit Exam as above PATH LABS Labs from May 13 showed CA 15-3 17 creatinine 0.9 total bilirubin 0.5 WBC 7.3 hemoglobin 13.7platelet 203,000. @IMAGEIMP@ Assessment: Plan: There are no problems to display for this patient. 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 Tumor was 0.8 cm in 1 sentinel lymph node negative. Oncotype DX recurrence score came back at 20. Adjuvant chemotherapy not recommended. Patient has completed radiation therapy treatment on July 14, 2023. My plan is to start hormonal therapy with anastrozole but patient notified me that she has osteoporosis. We will perform bone density testing now and we will discuss the results in 1 week before starting endocrine therapy with Arimidex. 07/14/2023 Venkata Harvey MD ILITY STRATEGIST documented in this encounter Plan of Treatment Upcoming Encounters Date Type Department Care Team (Late st Contact Info) Description 02/08/2025 3:45 PM CDT Office Visit [facility] Oncology and Hematology - [place] [address] [facility] [address] [place] [address] Venkata Harvey MD [address] [facility] [address] [place] [address] documented as of this encounter Visit Diagnoses Diagnosis Malignant neoplasm of right female breast, unspecified estrogen receptor status, unspecified site of breast- Primary Osteoporosis, unspecified osteoporosis type, unspecified pathological fracture presence documented in this encounter Care Teams Eyeletter Relationship Specialty Start Date End Date Carlton Brooks DO [address] [address] PCP - General Internal Medicine 04/21/23 documented as of this encounter
--- OUTSIDE RECORDS SUMMARY | 2024-08-29 20:27 | XMS_ITS | Encounter Summary ---
Author Organization [facility] [employer] [place] Address [address] [place] [address] Care Team Providers Care Embossing Press Operator Molded Goods Name Role Phone Carlton Brooks Primary Care Provider Reason for Visit * Reason Comments Follow Up Encounter Details Date Type Department Care Team (Late st Contact Info) Description 09/16/2023 3:30 PM HAND LAMINATOR Office Visit [facility] Oncology and Hematology - [place] [address] [facility] [address] [place] [address] Venkata Harvey MD [address] [facility] [address] [place] [address] Malignant neoplasm of right female breast, unspecified estrogen receptor status, unspecified site of breast (Primary Dx) Social History Tobacco Use Types Packs/Day Years [...] Sign Reading Time Taken Comments Blood Pressure 123/70 09/16/2023 3:34 PM HAND LAMINATOR Pulse 85 09/16/2023 3:34 PM HAND LAMINATOR Temperature 36.1 ??C (96.9 ??F) 09/16/2023 3:34 PM CS T Respiratory Rate 14 09/16/2023 3:34 PM HAND LAMINATOR Oxygen Saturation 97% 09/16/2023 3:34 PM HAND LAMINATOR Inhaled Oxygen Concentration - - Weight 117.5 kg (259 lb) 09/16/2023 3:34 PM HAND LAMINATOR Height - - Body Mass Index 43.1 04/21/2023 2:55 PM CDT documented in this encounter Progress Notes * Venkata Harvey MD - 09/16/2023 4:27 PM CST HEMATOLOGY / ONCOLOGY PROGRESS NOTE Patient Identification: Name: Zuri Garces Age: 58 y.o. Sex: female : 1965 DIAGNOSIS T1b N0 M0 stage I invasive mammary carcinoma with both ductal and lobular features ER/MO positive HER2/priti negative grade 1 with associated DCIS status post lumpectomy and right axillary lymph node biopsy done on April 29, 2023. Tumor was 0.8 cm in 1 sentinel lymph node negative. Oncotype DX recurrence score 20 CURRENT TREATMENT Anastrozole 1 mg daily started September 16, 2023. TREATMENT HISTORY Radiation therapy to the right breast completed July 14, 2023 SUBJECTIVE Patient came to the office for follow-up visit. After the bone density was performed. She denies any night sweats fevers and chills. Denies any bleeding and bruising. No other new complaints. Review of system Constitutional: Patient did not mention fevers, sweats, denies any tiredness and fatigue HEENT: Patient did not mention sinus congestion, [...] dizziness Skin: No lumps, bumps or rashes. 12 point review of system was reviewed Objective: Vital [...] No lymphadenopathy Neuro: No obvious focal deficit Bilateral breast examination showed postoperative and radiation changes in the right breast withoutany masses or lymphadenopathy. Exam as above PATH LABS Labs from May 13 showed CA 15-3 17 creatinine 0.9 total bilirubin 0.5 WBC 7.3 hemoglobin 13.7platelet 203,000. Labs from September 03 showed creatinine 0.9 total bilirubin 0.6 WBC 5.9 hemoglobin 14.1 platelet 230,000 CA 15-3 22 Assessment: Plan: There are no problems to display for this patient. T1b N0 M0 stage I invasive mammary carcinoma with both ductal and lobular features ER/MO positive HER2/priti negative grade 1 with associated DCIS status post lumpectomy and right axillary lymph node biopsy done on April 29, 2023. Tumor was 0.8 cm in 1 sentinel lymph node negative. Oncotype DX recurrence score came back at 20. Adjuvant chemotherapy not recommended. Patient has completed radiation therapy treatment on July 14, 2023. On my examination there is no evidence of relapse of disease. Bone density showed normal finding. Will start Arimidex 1 mg daily and follow-up with her in 3 months. Patient is going to have mammogramin October 2023. Bone health. Continue vitamin D. Follow-up in 3 months. TOBACCO COUNSELING She is not a tobacco/nicotine user. 09/16/2023 Venkata Harvey MD LAMINATOR documented in this encounter Plan of Treatment Upcoming Encounters Date Type Department Care Team (Late st Contact Info) Description 02/08/2025 3:45 PM CDT Office Visit [facility] Oncology and Hematology [facility] [address] [facility] [address] [place] [address] Venkata Harvey MD [address] [facility] [address] [place] [address] Scheduled Orders Name Type Priority Associated Diagnoses Orde r Schedule CANCER ANTIGEN 15-3 Lab Routine Malignant neoplasm of right female breast, unspecified estrogen receptor status, unspecified site of breast Expected: 12/09/2023, Expires: 09/15/2024 CBC WITH DIFFERENTIAL Lab Stat Malignant neoplasm of right female breast, unspecified estrogen receptor status, unspecified site of breast Expected: 12/09/2023, Expires: 09/16/2024 COMPREHENSIVE METABOLIC PANEL Lab Stat Malignant neoplasm of right female breast, unspecified estrogen receptor status, unspecified site of breast Expected: 12/09/2023, Expires: 09/16/2024 documented as of this encounter Visit Diagnoses Diagnosis Malignant neoplasm of right female breast, unspecified estrogen receptor status, unspecified site of breast- Primary documented in this encounter Care Teams Embossing Press Operator Molded Goods Relationship Specialty Start Date End Date Carlton Brooks DO [address] [facility] [address] [place] [address] PCP - General Internal Medicine 04/21/23 documented as of this encounter
--- OUTSIDE RECORDS SUMMARY | 2024-08-29 20:27 | XMS_ITS | Clinical Summary ---
Author Organization [facility] Address [address] [place] [address] Care Team Providers Care Director Of Reimbursement Name Role Phone ToddCarlton Fantasma Primary Care Provider Allergies Active Allergy Reactions Criticality Noted Date Comments Morphine Other (See Comments) Low 08/01/2016 Mvcheia-Mxg-Swd Reductase Inhibitors Muscle Pain Low 04/27/2018 Tetracycline Hives High 08/01/2016 Medications Medication Sig Dispensed Refills Start Date End Date Status FLUTICASONE PROPION-SALMETEROL INHALATION Take by inhalation. Active traMADoL (ULTRAM) 50 mg tablet Take 50 mg by mouth every 6 hours as needed for Pain. Active cyclobenzaprine (FLEXERIL) 5 mg Tablet Take 5 mg by mouth daily at bedtime. Active azaTHIOprine (IMURAN) 50 mg tablet Take 50 mg by mouth daily. Active magnesium oxide (MAG-OX) 400 mg (241.3 mg magnesium) tablet Take 800 mg by mouth daily. Active aspirin (ECOTRIN EC) 81 mg Tablet, Delayed Release (E.C.) Take 81 mg by mouth daily. Active omeprazole (PriLOSEC) 20 mg Capsule, Delayed Release(E.C.) Take 20 mg by mouth daily. Active loratadine (CLARITIN) 10 mg tablet Take 10 mg by mouth daily. Active cholecalciferol, vitamin D3, 1,000 unit Take 50 mcg by mouth 2 times daily. Active levothyroxine 150 mcg tablet Take 150 mcg by mouth daily in the morning. Active calcitRIOL (ROCALTROL) 0.25 mcg capsule Take 0.25 mcg by mouth daily. Active cephALEXin (KEFLEX) 250 mg capsule Take 250 mg by mouth daily. Active acetaminophen (TYLENOL) 500 mg tablet Take 500 mg by mouth daily. Active meloxicam (MOBIC) 7.5 mg tablet Take 7.5 mg by mouth daily. Active ferrous sulfate 325 mg (65 mg iron) tablet Take 325 mg by mouth every other day. Active carvediloL (COREG) 12.5 mg tablet Take 12.5 mg by mouth 2 times daily with meals. Active enalapril (VASOTEC) 2.5 mg tablet Take 2.5 mg by mouth 2 times daily. Active ezetimibe (ZETIA) 10 mg tablet Take 10 mg by mouth daily. Active diltiaZEM (CARDIZEM CD) 180 mg Controlled Delivery 24 hour capsule Take 180 mg by mouth daily. Active niacin (NIACOR) 250 mg tablet Take 250 mg by mouth daily. Active tamoxifen (NOLVADEX) 20 mg tablet Take 1 Tablet (20 mg) by mouth daily. 30 Tablet 3 12/30/2023 Active Active Problems No known active problems Encounters Date Type Department Care Team Description 08/23/2024 External Device Data STL ABSTRACTION Provider, Abstract 06/27/2024 Orders Only [facility] Oncology and Hematology [place] [address] [place] [address] Scanning, Provider 06/23/2024 Orders Only [facility] Oncology and Hematology - [place] [address] [place] [address] Scanning, Provider 06/15/2024 External Device Data STL ABSTRACTION Provider, Abstract 05/31/2024 External Device Data STL ABSTRACTION Provider, Abstract from Last 3 Months Family History Medical History Relation Name Comments Diabetes Brother 1 No Known Problems Brother 2 No Known Problems Brother 3 No Known Problems Daughter 1 No Known Problems Daughter 2 No Known Problems Daughter 3 Diabetes Father Heart Disease Father Heart Disease Mother Diabetes Sister 1 Heart Disease Sister 1 Lung Cancer Sister 2 No Known Problems Son 1 No Known Problems Son 2 Relation Name Status Comments Brother 1 Alive Brother 2 Alive Brother 3 Alive Daughter 1 Alive Daughter 2 Alive Daughter 3 Alive Father Mother Sister 1 Sister 2 Alive Son 1 Alive Son 2 Alive Social History Tobacco Use Types Packs/Day Years Used Date Smoking Tobacco: Never Smokeless Tobacco: Never Alcohol Use Standard Drinks/Week Comments Yes 0 (1 standard drink = 0.6 oz pur e alcohol) socially Sex and Gender Information Value Date Recorded Sex Assigned at Not on file Gender Identity Not on file Sexual Orientation Not on file Last Filed Vital Signs Vital Sign Reading Time Taken Comments Blood Pressure 140/88 05/11/2024 3:24 PM CDT Pulse 101 05/11/2024 3:22 PM CDT Temperature 36.5 ??C (97.7 ??F) 05/11/2024 3:22 PM CD T Respiratory Rate 16 05/11/2024 3:22 PM CDT Oxygen Saturation 95% 05/11/2024 3:22 PM CDT Inhaled Oxygen Concentration - - Weight 115.8 kg (255 lb 3.2 oz) 05/11/2024 3:22 PM CDT Height 165.1 cm (5' 5 ) 04/21/2023 2:55 PM CDT Body Mass Index 42.47 04/21/2023 2:55 PM CDT Plan of Treatment Upcoming Encounters Date Type Department Care Team (Late st Contact Info) Description 02/08/2025 3:45 PM CDT Office Visit [facility] Oncology and Hematology [facility] [address] [facility] [address] [place] [address] Venkata Harvey MD [address] [facility] [address] [place] [address] Health Maintenance Due Date Last Done Comments Pre-Diabetes and Diabetes Screening 1965 DTAP/TDAP/TD VACCINES (1 - Tdap) 1983 CERVICAL CANCER SCREENING 1994 BREAST CANCER SCREENING 2004 COLORECTAL SCREENING 2009 Colorectal Cancer Screening 2009 FIT-DNA Q 3 years 2009 FIT/FOBT Q 1 year 2009 Flex Sig/CT Colonography Q 5 years 2009 ZOSTER VACCINE (1 of 2) 2014 INFLUENZA VACCINE (#1) 2024 RSV VACCINE (60+ or ) (1 - Risk 60-74 years 1-dose series) 2024 HEPATITIS B VACCINES Aged Out No long er eligible based on patient's age to complete this topic PNEUMOCOCCAL VACCINE 0-64 YEARS Aged Out No longer eligible based on patient's age to complete this topic Procedures Procedure Name Priority Date/Time Associated Diagnosis Comments CALCIUM IONIZED Routine 06/24/2024 12:49 PM [facility] BASIC METABOLIC PANEL Routine 06/23/2024 11:48 AM [facility] from Last 3 Months Results * CALCIUM IONIZED (06/24/2024 12:49 PM [facility]) Blood Provider Scanning CHEMISTRY ORDERABLES * BASIC METABOLIC PANEL (06/23/2024 11:48 AM [facility]) Blood Provider Scanning CHEMISTRY ORDERABLES from Last 3 Months Care Teams Director Of Reimbursement Relationship Specialty Start Date End Date Carlton Brooks DO [address] [facility] [address] [place] [address] PCP - General Internal Medicine 04/21/23
--- OUTSIDE RECORDS SUMMARY | 2024-08-29 20:27 | XMS_ITS | Encounter Summary ---
Author Organization [facility] [employer] Address [address] [place] [address] Care Team Providers Care Estimator Paperboard Boxes Name Role Phone Carlton Brooks Primary Care Provider Encounter Details Date Type Department Care Team (Late st Contact Info) Description 01/28/2024 Orders Only [facility] Oncology and Hematology [facility] [address] [place] [id number] Scanning, Provider Social History Tobacco Use Types Packs/Day Years [...] Description 02/08/2025 3:45 PM CDT Office Visit [facility] Oncology [facility] [address] [place] [address] Venkata Harvey MD [address] [facility] [address] [place] [address] documented as of this encounter Procedures Procedure Name Priority Date/Time Associated Diagnosis Comments COMPREHENSIVE METABOLIC PANEL Routine 01/19/2024 11:26 AM CDT documented in this encounter Results * COMPREHENSIVE METABOLIC PANEL (01/19/2024 11:26 AM CDT) Blood Provider Scanning CHEMISTRY ORDERABLES documented in this encounter Visit Diagnoses Not on filedocumented in this encounter Care Teams Estimator Paperboard Boxes Relationship Specialty Start Date End Date Carlton Brooks DO [address] [address] PCP - General Internal Medicine 04/21/23 documented as of this encounter
--- OUTSIDE RECORDS SUMMARY | 2024-08-29 20:27 | XMS_ITS | Encounter Summary ---
Author Organization [facility] [employer] Address [address] [place] [address] Care Team Providers Care House Wirer Name Role Phone Carlton Brooks Primary Care Provider Encounter Details Date Type Department Care Team (Late Contact Info) Description 01/21/2024 Orders Only [facility] Oncology and Hematology [facility] [address] [place] [address] Venkata Harvey MD [address] [place] [address] [place] [address] [place] [address] Social History Tobacco Use Types Packs/Day [...] Description 02/08/2025 3:45 PM CDT Office Visit [facility] Oncology and Hematology - [place] [address] [place] [address] Venkata Harvey MD [address] [place] [address] [place] [address] [place] [address] documented as of this encounter Procedures Procedure Name Priority Date/Time Associated Diagnosis Comments CBC WITH DIFFERENTIAL Routine 01/19/2024 1:44 PM CDT documented in this encounter Results * CBC WITH DIFFERENTIAL (01/19/2024 1:44 PM CDT) Blood Venkata Harvey MD HEMATOLOGY ORDERABLE S documented in this encounter Visit Diagnoses Not on filedocumented in this encounter Care Teams House Wirer Relationship Specialty Start Date End Date Carlton Brooks DO [address] [address] PCP - General Internal Medicine 04/21/23 documented as of this encounter
--- OUTSIDE RECORDS SUMMARY | 2024-08-29 20:27 | XMS_ITS | Encounter Summary ---
Author Organization [facility] Address [address] [place] [address] Care Team Providers Care Bilingual School Psychologist Name Role Phone Carlton Brooks DO Primary Care Provider Encounter Details Date Type Department Care Team (Late st Contact Info) Description 09/18/2023 External Device Data STL ABSTRACTION Provider, Abstract [...] Description 02/08/2025 3:45 PM CDT Office Visit [facility] Oncology and Hematology - [place] [address] [facility] [address] [place] [address] Venkata Harvey MD [address] [facility] [address] [place] [address] documented as of this encounter Visit Diagnoses Not on filedocumented in this encounter Care Teams Bilingual School Psychologist Relationship Specialty Start Date End Date Carlton Brooks DO [address] [facility] [address] [place] [address] PCP - General Internal Medicine 04/21/23 documented as of this encounter
--- OUTSIDE RECORDS SUMMARY | 2024-08-29 20:27 | XMS_ITS | Encounter Summary ---
Author Organization [facility] Address [address] [place] [address] Care Team Providers Care Director Business Management Name Role Phone Carlton Brooks DO Primary Care Provider Encounter Details Date Type Department Care Team (Late st Contact Info) Description 10/30/2023 External Device Data STL ABSTRACTION Provider, Abstract [...] Description 02/08/2025 3:45 PM CDT Office Visit [facility] Oncology and Hematology - [place] [address] [facility] [address] [place] [address] Venkata Harvey MD [address] [facility] [address] [place] [address] documented as of this encounter Visit Diagnoses Not on filedocumented in this encounter Care Teams Director Business Management Relationship Specialty Start Date End Date Carlton Brooks DO [address] [facility] [address] [place] [address] PCP - General Internal Medicine 04/21/23 documented as of this encounter
--- OUTSIDE RECORDS SUMMARY | 2024-08-29 20:27 | XMS_ITS | Encounter Summary ---
Author Organization [facility] [email or web address] Address [address] [place] [address] Care Team Providers Care Business Office Coordinator Name Role Phone Carlton Brooks Primary Care Provider Encounter Details Date Type Department Care Team (Late Contact Info) Description 12/15/2023 Orders Only [facility] Oncology and Hematology [place] [address] [place] [address] Venkata Harvey MD [address] [place] [address] [employer] [address] [address] Social History Tobacco Use Types [...] Description 02/08/2025 3:45 PM CDT Office Visit [facility] Oncology and Hematology - [place] [address] [place] [address] Venkata Harvey MD [address] [place] [address] [employer] [address] [place] [address] documented as of this encounter Procedures Procedure Name Priority Date/Time Associated Diagnosis Comments CBC WITH DIFFERENTIAL Routine 12/14/2023 9:24 AM CDT COMPREHENSIVE METABOLIC PANEL Routine 12/14/2023 9:18 AM CDT documented in this encounter Results * CBC WITH DIFFERENTIAL (12/14/2023 9:24 AM CDT) Blood Venkata Harvey MD HEMATOLOGY ORDERABLE S * COMPREHENSIVE METABOLIC PANEL (12/14/2023 9:18 AM CDT) Blood Venkata Harvey MD CHEMISTRY ORDERABLES documented in this encounter Visit Diagnoses Not on filedocumented in this encounter Care Teams Business Office Coordinator Relationship Specialty Start Date End Date Carlton Brooks DO [address] [address] PCP - General Internal Medicine 04/21/23 documented as of this encounter
--- OUTSIDE RECORDS SUMMARY | 2024-08-29 20:27 | XMS_ITS | Encounter Summary ---
Author Organization [facility] Address [address] [place] [address] Care Team Providers Care [employer] Program Coordinator Name Role Phone Carlton Brooks DO Primary Care Provider Encounter Details Date Type Department Care Team (Late st Contact Info) Description 06/15/2024 External Device Data STL ABSTRACTION Provider, [...] Description 02/08/2025 3:45 PM CDT Office Visit [facility] Oncology and Hematology - [place] 2[address] [facility] 200 [place] [address] Venkata Harvey MD [address] [facility] [address] [place] [address] documented as of this encounter Visit Diagnoses Not on filedocumented in this encounter Care Teams [employer] Program Coordinator Relationship Specialty Start Date End Date Carlton Brooks DO 1181 [facility] [address] [place] [address] PCP - General Internal Medicine 04/21/23 documented as of this encounter
--- OUTSIDE RECORDS SUMMARY | 2024-08-29 20:27 | XMS_ITS | Encounter Summary ---
Author Organization [facility] Address [address] [place] [address] Care Team Providers Care Salesperson New Cars Name Role Phone Carlton Brooks DO Primary Care Provider Encounter Details Date Type Department Care Team (Late st Contact Info) Description 10/05/2023 External Device Data STL ABSTRACTION Provider, Abstract [...] Description 02/08/2025 3:45 PM CDT Office Visit [facility] Oncology and Hematology - [place] 2[address] [facility] [address] [place] [address] Venkata Harvey MD [address] [facility] [address] [place] [address] documented as of this encounter Visit Diagnoses Not on filedocumented in this encounter Care Teams Salesperson New Cars Relationship Specialty Start Date End Date Carlton Brooks DO [address]1 [facility] [address] [place] [address] PCP - General Internal Medicine 04/21/23 documented as of this encounter
--- OUTSIDE RECORDS SUMMARY | 2024-08-29 20:27 | XMS_ITS | Encounter Summary ---
Author Organization [facility] Address [address] [place] [address] Care Team Providers Care Hot Billet Shear Operator Name Role Phone Carlton Brooks DO Primary Care Provider Encounter Details Date Type Department Care Team (Late st Contact Info) Description 04/12/2024 External Device Data STL ABSTRACTION Provider, Abstract [...] Hospital Oncology and Hematology - [place] 2227 [facility] 200 [place] [address] Venkata Harvey MD 2[address] [facility] [address] [place] [address] documented as of this encounter Visit Diagnoses Not on filedocumented in this encounter Care Teams Hot Billet Shear Operator Relationship Specialty Start Date End Date Carlton Brooks DO [address] [facility] [address] [place] [address] PCP - General Internal Medicine 04/21/23 documented as of this encounter
--- OUTSIDE RECORDS SUMMARY | 2024-08-29 20:27 | XMS_ITS | Encounter Summary ---
Author Organization [facility] Address [address] [place] [address] Care Team Providers Care Repairer Handtools Name Role Phone Carlton Brooks DO Primary Care Provider Encounter Details Date Type Department Care Team (Late st Contact Info) Description 04/19/2024 External Device Data STL ABSTRACTION Provider, Abstract [...] Description 02/08/2025 3:45 PM CDT Office Visit [facility] Oncology and Hematology - Amari 2[address] [facility] 200 [place] [address] Venkata Harvey MD 2227 [facility] [address] [place] [address] documented as of this encounter Visit Diagnoses Not on filedocumented in this encounter Care Teams Repairer Handtools Relationship Specialty Start Date End Date Carlton Brooks DO 1181 [facility] [address] [place] [address] PCP - General Internal Medicine 04/21/23 documented as of this encounter
--- OUTSIDE RECORDS SUMMARY | 2024-08-29 20:27 | XMS_ITS | Encounter Summary ---
Author Organization [facility] Address [address] [place] [address] Care Team Providers Care Licensed Nuclear Operator Name Role Phone Carlton Brooks DO Primary Care Provider Encounter Details Date Type Department Care Team (Late st Contact Info) Description 03/01/2024 External Device Data STL ABSTRACTION Provider, Abstract [...] [facility] Oncology and Hematology - Amari [address] [facility] 200 [place] [address] Venkata Harvey MD [address] [facility] [address] [place] [address] documented as of this encounter Visit Diagnoses Not on filedocumented in this encounter Care Teams Licensed Nuclear Operator Relationship Specialty Start Date End Date Carlton Brooks DO 1181 [facility] [address] [place] [address] PCP - General Internal Medicine 04/21/23 documented as of this encounter
--- OUTSIDE RECORDS SUMMARY | 2024-08-29 20:27 | XMS_ITS | Encounter Summary ---
Author Organization [facility] Address [address] [place] [address] Care Team Providers Care Forming Mill Operator Name Role Phone Carlton Brooks Primary Care Provider Encounter Details Date Type Department Care Team (Late Contact Info) Description 12/16/2023 Orders Only [facility] Oncology and Hematology [facility] [address] [place] [address] Venkata Harvey MD [address] [place] [address] [employer] [address] [address] Social History Tobacco Use Types [...] Description 02/08/2025 3:45 PM CDT Office Visit [facility] Oncology and Hematology [place] [address] [place] [address] Venkata Harvey MD [address] [place] [address] [employer] [address] [place] [address] documented as of this encounter Procedures Procedure Name Priority Date/Time Associated Diagnosis Comments CANCER ANTIGEN 15-3 Routine 12/14/2023 9:49 AM CDT documented in this encounter Results * CANCER ANTIGEN 15-3 (12/14/2023 9:49 AM CDT) Blood Venkata Harvey MD CHEMISTRY ORDERABLES documented in this encounter Visit Diagnoses Not on filedocumented in this encounter Care Teams Forming Mill Operator Relationship Specialty Start Date End Date Carlton Brooks DO [address] [facility] [address] [place] [address] PCP - General Internal Medicine 04/21/23 documented as of this encounter
--- OUTSIDE RECORDS SUMMARY | 2024-08-29 20:27 | XMS_ITS | Encounter Summary ---
Author Organization [facility] Address [address] [place] [address] Care Team Providers Care Auto Mechanic Apprentice Name Role Phone Carlton Brooks DO Primary [...] Description 02/08/2025 3:45 PM CDT Office Visit [facility] Oncology and Hematology - Amari 2[address] [facility] 200 [place] [address] Venkata Harvey MD [address] [facility] [address] [place] [address] documented as of this encounter Visit Diagnoses Not on filedocumented in this encounter Care Teams Auto Mechanic Apprentice Relationship Specialty Start Date End Date Carlton Brooks DO 1181 [facility] [address] [place] [address] PCP - General Internal Medicine 04/21/23 documented as of this encounter
--- OUTSIDE RECORDS SUMMARY | 2024-08-29 20:27 | XMS_ITS | Encounter Summary ---
Author Organization [facility] [employer] [address] Address [address] [place] [address] Care Team Providers Care Metal Inspector Name Role Phone Carlton Brooks Primary Care Provider Reason for Visit * Reason Comments Cancer Follow Up Encounter Details Date Type Department Care Team (Late st Contact Info) Description 12/30/2023 3:30 PM CDT Office Visit [facility] Oncology and Hematology - [place] 2227 [facility] 200 [place] [address] Venkata Harvey MD 2[address] [facility] [address] [place] [address] Malignant neoplasm of right female [...] Sign Reading Time Taken Comments Blood Pressure 123/68 12/30/2023 3:30 PM CDT Pulse 90 12/30/2023 3:30 PM CDT Temperature 35.7 ??C (96.2 ??F) 12/30/2023 3:30 PM CD T Respiratory Rate 16 12/30/2023 3:30 PM CDT Oxygen Saturation 97% 12/30/2023 3:30 PM CDT Inhaled Oxygen Concentration - - Weight 116.6 kg (257 lb) 12/30/2023 3:30 PM CDT Height - - Body Mass Index 42.77 04/21/2023 2:55 PM CDT documented in this encounter Progress Notes * Venkata Harvey MD - 12/30/2023 4:17 PM CDT HEMATOLOGY / ONCOLOGY PROGRESS NOTE Patient Identification: Name: Zuri Garces Age: 58 y.o. 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 Tumor was 0.8 cm in 1 sentinel lymph node negative. Oncotype DX recurrence score 20 CURRENT TREATMENT Plan to start tamoxifen on December 30, 2023. TREATMENT HISTORY Radiation therapy to the right breast completed July 14, 2023 Anastrozole 1 mg daily started September 16, 2023. Discontinued due to musculoskeletal discomfort in early November 2023. SUBJECTIVE Patient able to the office for follow-up visit. She denies any night sweats fevers and chills. She was having significant musculoskeletal discomfort after taking anastrozole and discontinued that about 6 weeks ago. She is slightly feeling better. No other new complaints. Review of system Constitutional: Patient did not mention fevers, sweats, denies any tiredness and fatigue, weight and appetite stable. HEENT: Patient did not mention sinus congestion, [...] changes in the right breast withoutany masses and lymphadenopathy. Exam as above PATH LABS Labs from May 13 showed CA 15-3 17 creatinine 0.9 total bilirubin 0.5 WBC 7.3 hemoglobin 13.7platelet 203,000. Labs from September 03 showed creatinine 0.9 total bilirubin 0.6 WBC 5.9 hemoglobin 14.1 platelet 230,000 CA 15-3 22 Labs from December 13 showed creatinine 1.1 calcium 8.1 WBC 6.9 hemoglobin 13.7 platelet 237,000 CA 15-3 20 Assessment: Plan: There are no problems to display for this patient. 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 Tumor was 0.8 cm in 1 sentinel lymph node negative. Oncotype DX recurrence score came back at 20. Adjuvant chemotherapy not recommended. Patient has completed radiation therapy treatment on July 14, 2023. Patient discontinued anastrozole in November 2023 due to musculoskeletal discomfort. On my examination there is no evidence of relapse of disease. Will start tamoxifen 20 mg daily. Patient had mammogram done in October 2023 showed postoperative changes. Repeat diagnostic mammogram willbe done in 6 months. Follow-up with me in 4 months. Bone health. Bone density done in August 2023 came back normal. Continue vitamin D. TOBACCO COUNSELING She is not a tobacco/nicotine user. 12/30/2023 Venkata Harvey MD documented in this encounter Plan of Treatment Upcoming Encounters Date Type Department Care Team (Late st Contact Info) Description 02/08/2025 3:45 PM CDT Office Visit [facility] Oncology and Hematology [facility] [address] [facility] 200 [place] [address] Venkata Harvey MD [address] [facility] [address] [place] [address] Scheduled Orders Name Type Priority Associated Diagnoses Orde r Schedule CANCER ANTIGEN 15-3 Lab Routine Malignant neoplasm of right female breast, unspecified estrogen receptor status, unspecified site of breast Expected: 04/20/2024, Expires: 12/29/2024 CBC WITH DIFFERENTIAL Lab Stat Malignant neoplasm of right female breast, unspecified estrogen receptor status, unspecified site of breast Expected: 04/20/2024, Expires: 12/29/2024 COMPREHENSIVE METABOLIC PANEL Lab Stat Malignant neoplasm of right female breast, unspecified estrogen receptor status, unspecified site of breast Expected: 04/20/2024, Expires: 12/29/2024 documented as of this encounter Visit Diagnoses Diagnosis Malignant neoplasm of right female breast, unspecified estrogen receptor status, unspecified site of breast- Primary documented in this encounter Care Teams Metal Inspector Relationship Specialty Start Date End Date Carlton Brooks DO 118[address] [facility] [address] [place] [address] PCP - General Internal Medicine 04/21/23 documented as of this encounter
--- OUTSIDE RECORDS SUMMARY | 2024-08-29 20:27 | XMS_ITS | Encounter Summary ---
Author Organization [facility] Address [address] [place] [address] Care Team Providers Care Professor Of Kinesiology Name Role Phone Carlton Brooks DO Primary Care Provider Encounter Details Date Type Department Care Team (Late st Contact Info) Description 01/19/2024 External Device Data STL ABSTRACTION Provider, Abstract [...] Description 02/08/2025 3:45 PM CDT Office Visit [facility] Oncology and Hematology - Amari 2[address] [facility] 200 [place] [address] Venkata Harvey MD 2[address] [facility] [address] [place] [address] documented as of this encounter Visit Diagnoses Not on filedocumented in this encounter Care Teams Professor Of Kinesiology Relationship Specialty Start Date End Date Carlton Brooks DO 1181 [facility] [address] [place] [address] PCP - General Internal Medicine 04/21/23 documented as of this encounter
--- OUTSIDE RECORDS SUMMARY | 2024-08-29 20:27 | XMS_ITS | Encounter Summary ---
Author Organization [facility] Address [address] [place] [address] Care Team Providers Care Horse Groomer Name Role Phone Carlton Brooks DO Primary Care Provider Encounter Details Date Type Department Care Team (Late st Contact Info) Description 05/17/2024 External Device Data STL ABSTRACTION Provider, Abstract [...] Description 02/08/2025 3:45 PM CDT [facility] Visit [facility] Oncology and Hematology - Amari 2227 [facility] 200 [place] [address] Venkata Harvey MD 2[address] [facility] [address] [place] [address] documented as of this encounter Visit Diagnoses Not on filedocumented in this encounter Care Teams Horse Groomer Relationship Specialty Start Date End Date Carlton Brooks DO [address]1 [facility] [address] [place] [address] PCP - General Internal Medicine 04/21/23 documented as of this encounter
--- OUTSIDE RECORDS SUMMARY | 2024-08-29 20:27 | XMS_ITS | Encounter Summary ---
Author Organization [facility] Address [address] [place] [address] Care Team Providers Care Budget Director Name Role Phone Carlton Brooks DO Primary Care Provider Encounter Details Date Type Department Care Team (Late st Contact Info) Description 07/31/2023 External Device Data STL ABSTRACTION Provider, Abstract [...] Description 02/08/2025 3:45 PM CDT Office Visit [facility] Oncology and Hematology - Am[place] 2227 [facility] 200 [place] [address] Venkata Harvey MD 2[address] [facility] [address] [place] [address] documented as of this encounter Visit Diagnoses Not on filedocumented in this encounter Care Teams Budget Director Relationship Specialty Start Date End Date Carlton Brooks DO [address]1 [facility] [address] [place] [address] PCP - General Internal Medicine 04/21/23 documented as of this encounter
--- OUTSIDE RECORDS SUMMARY | 2024-08-29 20:27 | XMS_ITS | Encounter Summary ---
Author Organization [facility] Address [address] [place] [address] Care Team Providers Care Crude Oil Treater Name Role Phone Carlton Brooks Primary Care Provider Reason for Visit * Reason Comments Cancer Encounter Details Date Type Department Care Team (Late st Contact Info) Description 05/11/2024 3:45 PM CDT Office Visit [facility] Oncology and Hematology - [place] 2[address] [facility] 200 [place] [address] Venkata Harvey MD 2227 [facility] [address] [place] [address] Malignant neoplasm of right female [...] 3.2 oz) 05/11/2024 3:22 PM CDT Height - - Body Mass Index 42.47 04/21/2023 2:55 PM CDT documented in this encounter Progress Notes * Venkaat Harvey MD - 05/11/2024 3:47 PM CDT HEMATOLOGY / ONCOLOGY PROGRESS NOTE [...] Oncotype DX recurrence score 20 CURRENT TREATMENT Surveillance TREATMENT HISTORY Radiation therapy to the right breast completed July 14, 2023 Anastrozole 1 mg daily started September 16, 2023. Discontinued due to musculoskeletal discomfort in early November 2023. Tamoxifen was ordered but patient did not start due to previous history of heart attack and atrial fibrillation. SUBJECTIVE Patient came to the office for follow-up visit. She denies any new lumps on the lymphadenopathy. Denies any chest pain and shortness of breath. Weight and appetite stable. No other new complaints. Review of system [...] hemoglobin 13.7 platelet 237,000 CA 15-3 20 Labs from May 03 showed calcium 8.2 total bilirubin 0.6 hemoglobin 14.5 CA 15-3 23 Assessment: Plan: There are no problems to [...] in November 2023 due to musculoskeletal discomfort. Tamoxifen was notstarted due to history of heart attack and atrial fibrillation. There is no evidence of relapse of disease on my examination. Labs including tumor marker stable. Patient had right breast diagnostic mammogram done on April 19 showed no evidence of disease. Routine yearly screening mammogram of bilateral breast will be done in 6 months. I will see her back in 9 months and labs will be done in 6 months. After the next appointment we will make appointment in 6months to fall in between Dr. Whitt's appointment. Bone health. Continue vitamin D. 05/11/2024 Venkata Harvey MD documented in this encounter Plan of Treatment Upcoming Encounters Date Type Department Care Team (Late st Contact Info) Description 02/08/2025 3:45 PM CDT Office Visit [facility] Oncology and Hematology - [place] 2[address] [facility] 200 [place] [address] Venkata Harvey MD 2227 [facility] [address] [place] [address] Scheduled Orders Name Type Priority Associated Diagnoses Orde r Schedule CANCER ANTIGEN 15-3 Lab Routine Malignant neoplasm of right female breast, unspecified estrogen receptor status, unspecified site of breast Expected: 11/08/2024, Expires: 05/11/2025 CBC WITH DIFFERENTIAL Lab Stat Malignant neoplasm of right female breast, unspecified estrogen receptor status, unspecified site of breast Expected: 11/08/2024, Expires: 05/11/2025 COMPREHENSIVE METABOLIC PANEL Lab Stat Malignant neoplasm of right female breast, unspecified estrogen receptor status, unspecified site of breast Expected: 11/08/2024, Expires: 05/11/2025 documented as of this encounter Visit Diagnoses Diagnosis Malignant neoplasm of right female breast, unspecified estrogen receptor status, unspecified site of breast- Primary documented in this encounter Care Teams Crude Oil Treater Relationship Specialty Start Date End Date Carlton Brooks DO 1181 [facility] [address] [place] [address] PCP - General Internal Medicine 04/21/23 documented as of this encounter
--- OUTSIDE RECORDS SUMMARY | 2024-08-29 20:27 | XMS_ITS | Encounter Summary ---
Author Organization [facility] Address [address] [place] [address] Care Team Providers Care Garage Door Hanger Name Role Phone Carlton Brooks DO Primary [...] Description 02/08/2025 3:45 PM CDT Office Visit [facility] Oncology and Hematology - [place] 2[address] [facility] 200 [place] [address] Venkata Harvey MD [address] [facility] [address] [place] [address] documented as of this encounter Visit Diagnoses Not on filedocumented in this encounter Care Teams Garage Door Hanger Relationship Specialty Start Date End Date Carlton Brooks DO [address]1 [facility] [address] [place] [address] PCP - General Internal Medicine 04/21/23 documented as of this encounter
--- OUTSIDE RECORDS SUMMARY | 2024-08-29 20:27 | XMS_ITS | Encounter Summary ---
Author Organization [facility] [employer] Address [address] [place] [address] Care Team Providers Care Chairlift Operator Name Role Phone Carlton Brooks Primary Care Provider Encounter Details Date Type Department Care Team (Late st Contact Info) Description 06/27/2024 Orders Only [facility] Oncology and Hematology [facility] [address] [place] [phone] Scanning, Provider Social History Tobacco Use Types [...] Description 02/08/2025 3:45 PM CDT Office Visit [facility] Oncology [facility] [address] [place] [address] Venkata Harvey MD 2227 [facility] [address] [place] [address] documented as of this encounter Procedures Procedure Name Priority Date/Time Associated Diagnosis Comments CALCIUM IONIZED Routine 06/24/2024 12:49 PM MACHINE ATTENDANT documented in this encounter Results * CALCIUM IONIZED (06/24/2024 12:49 PM MACHINE ATTENDANT) Blood Provider Scanning CHEMISTRY ORDERABLES documented in this encounter Visit Diagnoses Not on filedocumented in this encounter Care Teams Chairlift Operator Relationship Specialty Start Date End Date Carlton Brooks DO [address] [address] PCP - General Internal Medicine 04/21/23 documented as of this encounter
--- OUTSIDE RECORDS SUMMARY | 2024-08-29 20:27 | XMS_ITS | Encounter Summary ---
Author Organization [facility] Address [address] [place] [address] Care Team Providers Care Inventory Control Supervisor Name Role Phone Carlton Brooks DO Primary [...] Hospital Oncology and Hematology - [facility] [address] [facility] [address] [place] [address] Venkata Harvey MD 2[address] [facility] [address] [place] [address] documented as of this encounter Visit Diagnoses Not on filedocumented in this encounter Care Teams Inventory Control Supervisor Relationship Specialty Start Date End Date Carlton Brooks DO [address] [facility] [address] [place] [address] PCP - General Internal Medicine 04/21/23 documented as of this encounter
--- OUTSIDE RECORDS SUMMARY | 2024-08-29 20:27 | XMS_ITS | Encounter Summary ---
Author Organization [facility] Address [address] [place] [address] Care Team Providers Care Leadership Development Consultant Name Role Phone Carlton Brooks DO Primary Care Provider Encounter Details Date Type Department Care Team (Late st Contact Info) Description 02/16/2024 External Device Data STL ABSTRACTION Provider, Abstract [...] 02/08/2025 3:45 PM CDT Office Visit [facility] Oncology and Hematology - Amari 2227 [facility] 200 [place] [address] Venkata Harvey MD 2227 [facility] [address] [place] [address] documented as of this encounter Visit Diagnoses Not on filedocumented in this encounter Care Teams Leadership Development Consultant Relationship Specialty Start Date End Date Carlton Brooks DO 1181 [facility] [address] [place] [address] PCP - General Internal Medicine 04/21/23 documented as of this encounter
--- OUTSIDE RECORDS SUMMARY | 2024-08-29 20:27 | XMS_ITS | Encounter Summary ---
Author Organization [facility] [employer] Address [address] [place] [address] Care Team Providers Care Hoister Name Role Phone Carlton Brooks Primary Care Provider Encounter Details Date Type Department Care Team (Late Contact Info) Description 09/04/2023 Orders Only [facility] Oncology and Hematology [facility] [address] [place] [address] Venkata Harvey MD [address] [place] [address] [address] Social History Tobacco Use Types [...] Hematology - [place] [address] [place] [address] Venkata Harvey MD [address] [place] [address] [employer] [address] [place] [address] documented as of this encounter Procedures Procedure Name Priority Date/Time Associated Diagnosis Comments CBC WITH DIFFERENTIAL Routine 09/03/2023 9:07 AM DEMONSTRATOR ELECTRIC GAS APPLIANCES COMPREHENSIVE METABOLIC PANEL Routine 09/03/2023 8:53 AM DEMONSTRATOR ELECTRIC GAS APPLIANCES documented in this encounter Results * CBC WITH DIFFERENTIAL (09/03/2023 9:07 AM DEMONSTRATOR ELECTRIC GAS APPLIANCES) Blood Venkata Harvey MD HEMATOLOGY ORDERABLE S * COMPREHENSIVE METABOLIC PANEL (09/03/2023 8:53 AM DEMONSTRATOR ELECTRIC GAS APPLIANCES) Blood Venkata Harvey MD CHEMISTRY ORDERABLES documented in this encounter Visit Diagnoses Not on filedocumented in this encounter Care Teams Hoister Relationship Specialty Start Date End Date Carlton Brooks DO 1181 [facility] [address] [place] [address] PCP - General Internal Medicine 04/21/23 documented as of this encounter
--- OUTSIDE RECORDS SUMMARY | 2024-08-29 20:27 | XMS_ITS | Encounter Summary ---
Author Organization [facility] [employer] Address [address] [place] [address] Care Team Providers Care Heavy Duty Diesel Mechanic Name Role Phone Carlton Brooks Primary Care Provider Encounter Details Date Type Department Care Team (Late Contact Info) Description 10/12/2023 Orders Only [facility] Oncology and Hematology [facility] [address] [place] [address] Venkata Harvey MD [address] [place] [address] [employer] [address] [address] Social History Tobacco Use Types [...] 02/08/2025 3:45 PM CDT Office Visit [facility] Oncology and Hematology - [place] [address] [place] [address] Venkata Harvey MD [address] [place] [address] [employer] [address] [address] documented as of this encounter Procedures Procedure Name Priority Date/Time Associated Diagnosis Comments CBC WITH DIFFERENTIAL Routine 10/09/2023 11:41 AM TRAFFIC SIGNAL TECHNICIAN COMPREHENSIVE METABOLIC PANEL Routine 10/09/2023 10:32 AM TRAFFIC SIGNAL TECHNICIAN documented in this encounter Results * CBC WITH DIFFERENTIAL (10/09/2023 11:41 AM TRAFFIC SIGNAL TECHNICIAN) Blood Venkata Harvey MD HEMATOLOGY ORDERABLE S * COMPREHENSIVE METABOLIC PANEL (10/09/2023 10:32 AM TRAFFIC SIGNAL TECHNICIAN) Blood Venkata Harvey MD CHEMISTRY ORDERABLES documented in this encounter Visit Diagnoses Not on filedocumented in this encounter Care Teams Heavy Duty Diesel Mechanic Relationship Specialty Start Date End Date Carlton Brooks DO [address] [facility] [address] [place] [address] PCP - General Internal Medicine 04/21/23 documented as of this encounter
--- OUTSIDE RECORDS SUMMARY | 2024-08-29 20:27 | XMS_ITS | Encounter Summary ---
Author Organization [facility] Address [address] [place] [address] Care Team Providers Care Supervisor Chlorine Liquefaction Name Role Phone Carlton Brooks DO Primary Care Provider Encounter Details Date Type Department Care Team (Late st Contact Info) Description 09/16/2023 External Device Data STL ABSTRACTION Provider, Abstract [...] Description 02/08/2025 3:45 PM CDT Office Visit [facility] Oncology and Hematology - Amari 2[address] [facility] 200 [place] [address] Venkata Harvey MD 2[address] [facility] [address] [place] [address] documented as of this encounter Visit Diagnoses Not on filedocumented in this encounter Care Teams Supervisor Chlorine Liquefaction Relationship Specialty Start Date End Date Carlton Brooks DO [address]1 [facility] [address] [place] [address] PCP - General Internal Medicine 04/21/23 documented as of this encounter
--- OUTSIDE RECORDS SUMMARY | 2024-08-29 20:27 | XMS_ITS | Encounter Summary ---
Author Organization [facility] [employer] Address [address] [place] [address] Care Team Providers Care Scheduler Maintenance Name Role Phone Carlton Brooks DO Primary Care Provider Encounter Details Date Type Department Care Team (Late Contact Info) Description 07/14/2023 Abstract [facility] Oncology and Hematology - [place] [address] [place] [address] [place] [address] [place] [address] [employer] [address] [place] [address] Social History Tobacco Use Types Packs/Day [...] Description 02/08/2025 3:45 PM CDT Office Visit [facility] Oncology and Hematology - [place] [address] [place] [address] [place] [address] [place] [address] [employer] [address] [place] [address] documented as of this encounter Visit Diagnoses Not on filedocumented in this encounter Care Teams Scheduler Maintenance Relationship Specialty Start Date End Date Carlton Brooks DO [address] [facility] [address] [place] [address] PCP - General Internal Medicine 04/21/23 documented as of this encounter
--- OUTSIDE RECORDS SUMMARY | 2024-08-29 20:27 | XMS_ITS | Encounter Summary ---
Author Organization [facility] Address [address] [place] [address] Care Team Providers Care Enthone Solder Stripper Name Role Phone Carlton Brooks DO Primary Care Provider Encounter Details Date Type Department Care Team (Late st Contact Info) Description 05/31/2024 External Device Data STL ABSTRACTION Provider, [...] Description 02/08/2025 3:45 PM CDT Office Visit [facility] Oncology and Hematology - [place] 2[address] [facility] 200 [place] [address] Venkata Harvey MD 2[address] [facility] [address] [place] [address] documented as of this encounter Visit Diagnoses Not on filedocumented in this encounter Care Teams Enthone Solder Stripper Relationship Specialty Start Date End Date Carlton Brooks DO 1181 [facility] [address] [place] [address] PCP - General Internal Medicine 04/21/23 documented as of this encounter
--- OUTSIDE RECORDS SUMMARY | 2024-08-29 20:27 | XMS_ITS | Encounter Summary ---
Author Organization [facility] [employer] Address [address] [place] [address] Care Team Providers Care Information Security Consultant Name Role Phone Carlton Brooks Primary Care Provider Encounter Details Date Type Department Care Team (Late st Contact Info) Description 06/23/2024 Orders Only [facility] Oncology and Hematology [facility] [address] [place] [phone] Scanning, Provider Social History Tobacco Use Types [...] Description 02/08/2025 3:45 PM CDT Office Visit [facility] Oncology [facility] [address] [place] [address] Venkata Harvey MD 2[address] [facility] [address] [place] [address] documented as of this encounter Procedures Procedure Name Priority Date/Time Associated Diagnosis Comments BASIC METABOLIC PANEL Routine 06/23/2024 11:48 AM ENGINEER CHIEF documented in this encounter Results * BASIC METABOLIC PANEL (06/23/2024 11:48 AM ENGINEER CHIEF) Blood Provider Scanning CHEMISTRY ORDERABLES documented in this encounter Visit Diagnoses Not on filedocumented in this encounter Care Teams Information Security Consultant Relationship Specialty Start Date End Date Carlton Brooks DO [address] [address] PCP - General Internal Medicine 04/21/23 documented as of this encounter
--- OUTSIDE RECORDS SUMMARY | 2024-08-29 20:27 | XMS_ITS | Encounter Summary ---
Author Organization [facility] Address [address] [place] [address] Care Team Providers Care Electric Motor Mechanic Name Role Phone Carlton Brooks DO Primary Care Provider Encounter Details Date Type Department Care Team (Late st Contact Info) Description 03/22/2024 External Device Data STL ABSTRACTION Provider, Abstract [...] Description 02/08/2025 3:45 PM CDT Office Visit [facility] Oncology and Hematology - Am[facility] 2227 [facility] 200 [place] [address] Venkata Harvey MD 2227 [facility] [address] [place] [address] documented as of this encounter Visit Diagnoses Not on filedocumented in this encounter Care Teams Electric Motor Mechanic Relationship Specialty Start Date End Date Carlton Brooks DO [address]1 [facility] [address] [place] [address] PCP - General Internal Medicine 04/21/23 documented as of this encounter
--- OUTSIDE RECORDS SUMMARY | 2024-08-29 20:27 | XMS_ITS | Encounter Summary ---
Author Organization [facility] Address [address] [place] [address] Care Team Providers Care Casket Inspector Name Role Phone Carlton Brooks DO Primary Care Provider Encounter Details Date Type Department Care Team (Late st Contact Info) Description 04/05/2024 External Device Data STL ABSTRACTION Provider, Abstract [...] Description 02/08/2025 3:45 PM CDT Office Visit [facility] Oncology and Hematology - Amari 2227 [facility] 200 [place] [address] Venkata Harvey MD [address] [facility] [address] [place] [address] documented as of this encounter Visit Diagnoses Not on filedocumented in this encounter Care Teams Casket Inspector Relationship Specialty Start Date End Date Carlton Brooks DO [address] [facility] [address] [place] [address] PCP - General Internal Medicine 04/21/23 documented as of this encounter
--- OUTSIDE RECORDS SUMMARY | 2024-08-29 20:27 | XMS_ITS | Encounter Summary ---
Author Organization [facility] Address [address] [place] [address] Care Team Providers Care Deaf Teacher Name Role Phone Carlton Brooks DO Primary Care Provider Encounter Details Date Type Department Care Team (Late st Contact Info) Description 04/13/2024 External Device Data STL ABSTRACTION Provider, Abstract [...] 3:45 PM CDT Office Visit [facility] Oncology and Hematology - [place] 2227 [facility] 200 [place] [address] Venkata Harvey MD [address] [facility] [address] [place] [address] documented as of this encounter Visit Diagnoses Not on filedocumented in this encounter Care Teams Deaf Teacher Relationship Specialty Start Date End Date Carlton Brooks DO [address] [facility] [address] [place] [address] PCP - General Internal Medicine 04/21/23 documented as of this encounter
--- OUTSIDE RECORDS SUMMARY | 2024-08-29 20:27 | XMS_ITS | CONTINUITY OF CARE DOCUMENT ---
Author Name jacob, jacob Address Unknown Organization [facility] Address [address] [place] [address] Phone [phone] Care Team Providers Care Medical Coordinator Pesticide Use Name Role Phone Zoe LUNA, Cirilo Styles Unavailable CHI LUNA, PAKO Unavailable PAKO MIRELES MD Unavailable [phone] PROBLEMS Condition Status Date Provider Notes Atrial fibrillation active Darrell Kent Edema - localized active Billy Mcdaniels Leg pain - R knee/leg active Ross Estrada Statin Intolerant active Dinorah Howard Obesity active Cirilo Enriquez MD Hypothyroidism active Cirilo Enriquez MD Sleep apnea active Cirilo Enriquez MD Snoring active Cirilo Enriquez MD Shortness of breath active Cirilo Enriquez MD HTN essential completed - Cirilo Enriquez MD AMI anterior wall active Cirilo Estrada CAD active Cirilo Enriquez MD CARDIOMYOPATHY active Cirilo Enriquez MD Myocardial Infarction active ? Cirilo deluca MD (History of) Hypertension active ? Cirilo Enriquez MD Hyperlipidemia active ? Cirilo Enriquez MD Congestive Heart Failure active ? Cirilo bergman MD Family History of Hypertension: completed - Cirilo Enriquez MD ENCOUNTERS Date Type Provider Location Encounter Diag nosis - In-person encounter Office Visit Cirilo Enriquez MD [facility] - In-person encounter Office Visit Cirilo Enriquez MD [facility] - In-person encounter Office Visit Cirilo Enriquez MD [facility] Edema - localized - In-person encounter Office Visit Cirilo Enriquez MD [facility] - In-person encounter Office Visit Ross Hayes MD [facility] Leg pain - R knee/leg - In-person encounter Office Visit Cirilo Enriquez MD [facility] Statin Intolerant - In-person encounter Office Visit Cirilo Enriquez MD [facility] Family History of Hypertension:CARDIOMYOPATHYHTN essentialHypothyroidismObesity - In-person encounter Office Visit Cirilo Enriquez MD [facility] - In-person encounter Office Visit Cirilo Enriquez MD [facility] - In-person encounter Office Visit Cirilo Enriquez MD [facility] Congestive Heart FailureHyperlipidemiaHypertensionMyocardial InfarctionCARDIOMYOPATHYCADAMI anterior wallShortness of breathSnoringSleep apnea VITAL SIGNS Date Observation Value Provider Body Mass Index (Ratio) 41.93 kg/m2 Aaron Hernandez blood pressure, cuff size regular Cy michael Jewell blood pressure, diastolic 80 mm[Hg] Cy michael Jewell blood pressure, systolic 126 mm[Hg] Linda Jewell oxygen saturation, oximetry 96 % Janette Jewell respiratory rate E&M 16 /min Janette Jewell pulse rate 51 /min Janette garza weight E&M 252 [lb_av] Janette Lord l height E&M 65 [in_i] Janette garza Body Mass Index (Ratio) 43.43 kg/m2 Trung Enriquez MD blood pressure, cuff size large Cr dary Henry blood pressure, diastolic 70 mm[Hg] Cr ysdarcy Henry blood pressure, systolic 110 mm[Hg] Cry stal Henry oxygen saturation, oximetry 98 % Tasia Figueroa respiratory rate E&M 17 /min Tasia Figueroa pulse rate 65 /min Tasia burnette weight E&M 261 [lb_av] Tasia Parada s height E&M 65 [in_i] Tasia burnette Body Mass Index (Ratio) 43.26 kg/m2 Billy [facility] blood pressure, diastolic 70 mm[Hg] Christiano vogel Melton blood pressure, systolic 118 mm[Hg] Chelo jeffries [place] oxygen saturation, oximetry 98 % [facility] E&M 16 /min [facility] pulse rate 73 /min [facility] weight E&M 260 [lb_av] Brigette Melton height E&M 65 [in_i] Ferron Melton Body Mass Index (Ratio) 42.43 kg/m2 Billy Mcdaniels temperature E&M 98 [degF] Cirilo almendarez MD pulse rate 73 /min Cirilo doe MD respiratory rate E&M 16 /min Cirilo Enriquez MD blood pressure, diastolic 70 mm[Hg] Sa agueda Enriquez MD blood pressure, systolic 110 mm[Hg] Pj Enriquez MD weight E&M 255 [lb_av] Cirilo doe MD Body Mass Index (Ratio) 42.10 kg/m2 Elton Hayes MD blood pressure, cuff size large Ke rri Corwinlondonbasim blood pressure, diastolic 80 mm[Hg] Ke rri Yoanhunterbasim blood pressure, systolic 140 mm[Hg] Breanna scruggs Yoanhunterbasim oxygen saturation, oximetry 98 % Franci Yoanhunterbasim respiratory rate E&M 18 /min Franci Juanito cabral pulse rate 69 /min Franci Miltonhunterkenya lder weight E&M 253 [lb_av] Franci Spencer lder height E&M 65 [in_i] Franci Corwintayrn lder Body Mass Index (Ratio) 41.86 kg/m2 Rusty rae Lee blood pressure, diastolic 76 mm[Hg] Nehal Mcrae blood pressure, systolic 112 mm[Hg] Ellen Mcrae oxygen saturation, oximetry 98 % Leticia Mcrae respiratory rate E&M 18 /min Dipika Mcrae pulse rate 68 /min Leticia cavazos weight E&M 251.6 [lb_av] Leticia linares height E&M 65 [in_i] Leticia cavazos Body Mass Index (Ratio) 41.66 kg/m2 Trung Enriquez MD blood pressure, diastolic 75 mm[Hg] Nehal Mcrae blood pressure, systolic 128 mm[Hg] Ellen Mcrae oxygen saturation, oximetry 98 % Leticia Mcrae respiratory rate E&M 18 /min Dipika Mcrae pulse rate 77 /min Leticia cavazos weight E&M 250.4 [lb_av] Leticia linares height E&M 65 [in_i] Leticia cavazos Body Mass Index (Ratio) 40.10 kg/m2 Trung Enriquez MD blood pressure, cuff size large Ke yolandai Reedbasim blood pressure, diastolic 70 mm[Hg] Anders rri Katelynnicanorbasim blood pressure, systolic 122 mm[Hg] Breanna scruggs Luis E oxygen saturation, oximetry 96 % Franci Luis E respiratory rate E&M 18 /min Franci Solomon noeladityacristobal pulse rate 76 /min Franci Johanna lder weight E&M 241 [lb_av] Franci Johanna lder height E&M 65 [in_i] Franci Johanna lder Body Mass Index (Ratio) 38.57 kg/m2 Trung Enriquez MD blood pressure, cuff size large Te marguerite Houston blood pressure, diastolic 70 mm[Hg] Te marguerite [place] blood pressure, systolic 110 mm[Hg] Ten kale Houston oxygen saturation, oximetry 97 % Jeri Houston respiratory rate E&M 18 /min Jeri Houston pulse rate 80 /min Jeri [place] weight E&M 231.8 [lb_av] Jeri Landryhlkenya y Body Mass Index (Ratio) 38.44 kg/m2 Trung Enriquez MD blood pressure, resting Yes Trung Enriquez MD blood pressure, diastolic 80 mm[Hg] Da billy Alisa blood pressure, systolic 112 mm[Hg] Dac ia Alisa oxygen saturation, oximetry 98 % Jaja Alisa respiratory rate E&M 16 /min Jaja V oss pulse rate 83 /min Jaja Alisa weight E&M 231 [lb_av] Jaja Alisa height E&M 65 [in_i] Jaja Cuellar ALLERGIES Allergy Name Onset Date Reaction Criticality Status STATINS Low Criticality active MORPHINE Low Criticality active TETRACYCLINE Low Criticality active HISTORY OF MEDICATION USE Medication Status Instructions Dates Provider Indications Com ments SYNTHROID 150 MCG ORAL TABLET active take 1 tab daily Janette Jewell IRON 27 TABLET active take 1 tab daily Janette Jewell METFORMIN HCL ER (MOD) 500 MG ORAL TABLET EXTENDED RELEASE 24 HOUR active take 1 tab daily Janette Jewell ASPIRIN ADULT LOW DOSE 81 MG ORAL TABLET DELAYED RELEASE active One Tab By Mouth Daily Cirilo Enriquez MD CARTIA XT 180 MG ORAL CAPSULE EXTENDED RELEASE 24 HOUR active ONE TAB. DAILY Cirilo Enriquez MD FOLIC ACID 1 MG ORAL TABLET completed ONE TAB. DAILY - Brigette Melton METHOTREXATE TABLET completed 8 pills on thursday - Ferron Melton MELATONIN TABLET completed once daily - Franci Kimbrough CLARITIN 10 MG ORAL CAPSULE active take one pill a day Franci Kimbrough ASPIR-LOW 81 MG ORAL TABLET DELAYED RELEASE active take 1 tab daily Janette Jewell YOSPRALA 81-40 MG ORAL TABLET DELAYED RELEASE completed qday - Franci Kimbrough YOSPRALA 81-40 MG ORAL TABLET DELAYED RELEASE completed po qday - Franci Kimbrough TRAMADOL HCL 50 MG ORAL TABLET active take one every 6 as needed Cirilo Enriquez MD PRILOSEC 20 MG ORAL CAPSULE DELAYED RELEASE active take one tablet daily Cirilo Enriquez MD LEVOTHYROXINE SODIUM 175 MCG ORAL TABLET completed take one tablet daily - Janette Jewell FERROUS SULFATE 325 (65 FE) MG ORAL TABLET completed take one pill a day - Janette Jewell CALCIUM 500 TABLET active take one pill twice a day Franci Kimbrough MAGNESIUM OXIDE 400 MG ORAL TABLET active take 2 tablets twice daily Cirilo Enriquez MD VITAMIN D 1000 UNIT ORAL TABLET active take 2 tablets twice daily Jaja Cuellar CALCITRIOL 0.25 MCG ORAL CAPSULE active 1 pill in the am and 2 pills at night Cirilo Enriquez MD BRILINTA 90 MG ORAL TABLET completed 1 tablet twice dialy - Leticia Mcrae COREG 12.5 MG ORAL TABLET active ONE TAB. TWICE DAILY Cirilo Enriquez MD ENALAPRIL MALEATE 2.5 MG ORAL TABLET active 1 tablet twice daily Cirilo Enriquez MD ASPIR-81 81 MG ORAL TABLET DELAYED RELEASE completed 1 tablet daily - Leticia Mcrae CRESTOR 20 MG ORAL TABLET completed ONE TAB. DAILY - Franci Kimbrough please use generic SOCIAL HISTORY Date Observation Value Provider smoking status Former smoker Cirilo almendarez MD social history E&M S moking History: P atdurga is a former smoker. Cirilo Enriquez MD social history reviewed E&M revi ewed - no changes required Cirilo Enriquez MD smoking, year quit 2015 Janette valdez smoking, date started 1977 Karin Jewell cigarette use yes Janette valladares alcohol use, type rarely Cirilo Enriquez MD alcohol use yes Cirilo doe MD smoking, year quit 2015 Cirilo Enriquez MD smoking, date started 1977 Bimal Enriquez MD smoking status Former smoker Cirilo almendarez MD social history E&M S moking History: Flor atdurga is a former smoker. Cirilo Enriquez MD social history reviewed E&M revi ewed - no changes required Cirilo Enriquez MD cigarette use yes Tasia Rouse ms social history reviewed E&M revi ewed - no changes required Cirilo Enriquez MD social history E&M S moking History: Flor rao is a former smoker. Cirilo Enriquez MD alcohol use, type rarely Ferron In gram alcohol use yes Brigette Melton smoking, year quit 2015 Brigette I ngram smoking, date started 1977 Killee n Melton cigarette use yes Ferron Melton smoking status Former smoker Ferron Ingr am number of grandchildren Cirilo Enriquez MD social history E&M S moking History: Flor rao is a former smoker. Cirilo Enriquez MD alcohol use, type rarely Cirilo Enriquez MD alcohol use yes Cirilo doe MD smoking, year quit 2015 Cirilo Enriquez MD smoking, date started 1977 Bimal Enriquez MD cigarette use yes Cirilo deluca MD smoking status Former smoker Cirilo almendarez MD social history reviewed E&M revi ewed - no changes required Cirilo Enriquez MD number of grandchildren Ross Hayes MD social history E&M S moking History: Flor rao is a former smoker. Ross Hayes MD social history reviewed E&M revi ewed - no changes required Ross Hayes MD alcohol use, type rarely Franci jerez alcohol use yes Franci cavanaugher smoking, year quit 2015 Franci Leighton madison smoking, date started 1977 Franci Cannoner cigarette use yes Franci Reed stallworth smoking status Former smoker Franci harrisonelder social history E&M S moking History: Flor rao is a former smoker. Cirilo Enriquez MD social history reviewed E&M revi ewed - no changes required Cirilo Enriquez MD alcohol use, type rarely Leticia Mcrae alcohol use yes Leticia Conner nson smoking, year quit 2015 Leticia Mcrae smoking, date started 1977 Jonn Mcrae cigarette use yes Leticia galvanon smoking status Former smoker Leticia Shaw social history reviewed E&M revi ewed - no changes required Cirilo Enriquez MD social history E&M Smoking Histo ry: Flor rao is a former smoker. Cirilo Enriquez MD alcohol use, type rarely Cirilo Enriquez MD alcohol use yes Leticia Conner nson smoking, year quit 2015 Leticia Mcrae smoking, date started 1977 Jonn Mcrae cigarette use yes Leticia linares smoking status Former smoker Leticia Shaw social history E&M S moking History: Flor rao is a former smoker. Cirilo Enriquez MD social history reviewed E&M revi ewed - no changes required Cirilo Enriquez MD alcohol use, type rarly Franci Katelyn vickelder alcohol use yes Franci Oliviamauryjesuslakeisha er smoking, year quit 2015 Franci Leighton madison smoking, date started 1977 Franci Kimbrough cigarette use yes Fracni Reed stallworth smoking status Former smoker Franci Milton hunterelder social history E&M S moking History: Flor rao is a former smoker. Cirilo Enriquez MD social history reviewed E&M revi ewed - no changes required Cirilo Enriquez MD alcohol use, type rarly Cirilo Enriquez MD alcohol use yes Cirilo doe MD smoking, year quit 2015 Cirilo Enriquez MD smoking, date started 1977 Bimal Enriquez MD cigarette use yes Cirilo deluca MD smoking status Former smoker Cirilo almendarez MD number of grandchildren Cirilo Enriquez MD social history E&M S moking History: Flor rao is a former smoker. Cirilo Enriquez MD social history reviewed E&M revi ewed - no changes required Cirilo Enriquez MD alcohol use, type rarly Jaja Alisa alcohol use yes Ajja Alisa smoking, year quit [address] smoking, date started 1977 Jaja Alisa cigarette use yes Jaja Alisa smoking status Former smoker Jaja Alisa FUNCTIONAL STATUS Date Observation Value Provider HRA, CV Assess/Plan, Angina (inactive) Management Plan continue current therapy Cirilo Enriquez MD HRA, CV Assess/Plan, Angina (inactive) Management Plan continue current therapy Cirilo Enriquez MD HRA, CV Assess/Plan, Angina (inactive) Management Plan continue current therapy Billy Plurad HRA, CV Assess/Plan, Angina (inactive) Management Plan continue current therapy Cirilo Enriquez MD HRA, CV Assess/Plan, Angina (inactive) Management Plan continue current therapy Cirilo Enriquez MD HRA, CV Assess/Plan, Angina (inactive) Management Plan continue current therapy Cirilo Enriquez MD HRA, CV Assess/Plan, Angina (inactive) Management Plan continue current therapy Cirilo Enriquez MD FAMILY HISTORY Family Member Condition Father Family History of Hy pertension: Father Family History of Di abetes: INSURANCE PROVIDERS Payer name Policy type / Coverage type Johanne red republican ID SELF PAY [id number] ADVANCE DIRECTIVES Name Date DISCUSSED - NO DECISION MADE TREATMENT PLAN Date Name Performer Cardiology follow up : C urrently on ASA alone. Cirilo Enriquez MD Cardiology follow up : T he following medications were removed from the medication list: Levothyroxine Sodium 175 Mcg Oral Tablet (Levothyroxine sodium) ..... Take one tablet daily Her updated medication list for this problem includes: Synthroid 150 Mcg Oral Tablet (Levothyroxine sodium) ..... Take 1 tab daily Orders: C omplete Echo ([id number]) Cirilo Enriquez MD Cardiology follow up : C holesterol levels were fairly good on recent blood test dated 01/29/18. Starting DASH diet. Cirilo Enriquez MD Cardiology follow up : L VEF 60%, PHTN, PAP 46 01/01/2018 LVEF has imrpoved from 20% since her LA. N eeds echo done to reassess LVF Cirilo Enriquez MD Cardiology follow up : U nlikely vascular in origin. Hx. RA. Followed by specialist. Cirilo Enriquez MD Cardiology follow up : A dded Cartia XT 180mg daily and increased BB dose to Coreg 12.5 mg BID. H er updated medication list for this problem includes: Aspirin Adult Low Dose 81 Mg Oral Tablet Delayed Release (Aspirin) ..... One tab by mouth daily Aspir-low 81 Mg Oral Tablet Delayed Release (Aspirin) ..... Take 1 tab daily Coreg 12.5 Mg Oral Tablet (Carvedilol) ..... One tab. twice daily Cirilo Enriquez MD Cardiology follow up Cirilo bergman MD Cardiology follow up : P rior MICHELE to LAD 3.5x12 Promus Premier. Most recent LVEF 57.5% by MUGA on 08/13/16. Ok to discontinue Brilinta in July, having completed 12 months of DAPT. Cirilo Enriquez MD Cardiology follow up : O n CPAP. Cirilo Enriquez MD Cardiology follow up : O n CPAP. Cirilo Enriquez MD Cardiology:LVEF 60%, PHTN, PAP 46 01/01/2018 LVEF has imrpoved from 20% since her LA. Cirilo Enriquez MD Cardiology Cirilo Enriquez MD Cardiology: A dded Cartia XT 180mg daily and increased BB dose to Coreg 12.5 mg BID. Her updated medication list for this problem includes: Aspirin 325 Mg Oral Tablet (Aspirin) ..... One tab. daily Coreg 12.5 Mg Oral Tablet (Carvedilol) ..... One tab. twice daily Orders: E KG ([id number]) Cirilo Enriquez MD Cardiology: P rior MICHELE to LAD 3.5x12 Promus Premier. Most recent LVEF 57.5% by MUGA on 08/13/16. Ok to discontinue Brilinta in July, having completed 12 months of DAPT. Cirilo Enriquez MD Cardiology: Jhoan rogers likely has venous insufficiency in the RLE. Prior DVT study negative. Had prior leg stripping done. Likely that she will benefit from comrpession stockings. J jennifer 2019 Improved with compression stockings, no plans for invasive management. Cirilo Enriquez MD Cardiology: C holesterol levels were fairly good on recent blood test dated 01/29/18. Starting DASH diet. Cirilo Enriquez MD Cardiology: C urrently on ASA alone. Cirilo Enriquez MD Cardiology: O n CPAP. Cirilo Enriquez MD Cardiology Cirilo Enriquez MD Cardiology:Most like ly has venous insufficiency in the RLE. Prior DVT study negative. Had prior leg stripping done. Likely that she will benefit from comrpession stockings. Cirilo Enriquez MD Cardiology: A dded Cartia XT 180mg daily and increased BB dose to Coreg 12.5 mg BID. Cirilo Enriquez MD Cardiology: B P today: 110/70 P rior BP: 140/80 (04/27/2018) Her updated medication list for this problem includes: Cartia Xt 180 Mg Oral Capsule Extended Release 24 Hour (Diltiazem hcl coated beads) ..... One tab. daily Aspirin 325 Mg Oral Tablet (Aspirin) ..... One tab. daily Coreg 12.5 Mg Oral Tablet (Carvedilol) ..... One tab. twice daily Enalapril Maleate 2.5 Mg Oral Tablet (Enalapril maleate) ..... 1 tablet twice daily Cirilo Enriquez MD Cardiology: H er updated medication list for this problem includes: Cartia Xt 180 Mg Oral Capsule Extended Release 24 Hour (Diltiazem hcl coated beads) ..... One tab. daily Aspirin 325 Mg Oral Tablet (Aspirin) ..... One tab. daily Coreg 12.5 Mg Oral Tablet (Carvedilol) ..... One tab. twice daily Enalapril Maleate 2.5 Mg Oral Tablet (Enalapril maleate) ..... 1 tablet twice daily Cirilo Enriquez MD Cardiology:On CPAP. Cirilo almendarez MD Cardiology: A dded Cartia XT 180mg daily and increased BB dose to Coreg 12.5 mg BID. Cirilo Enriquez MD Cardiology:Unlikely vascular in origin. Hx. RA. Followed by specialist. Cirilo Enriquez MD Cardiology:Cholester ol levels were fairly good on recent blood test dated 01/29/18. Starting DASH diet. Cirilo Enriquez MD Cardiology Follow ui p:She has sx which seem more consistent with a muscle/tendon/joint cause. 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 I will check an RICK but she does have a palpable R DP pulse and I do not think this is severe PVD. Also, of note, she had a negative venous doppler for DVT. Ross Hayes MD Cardiology: B P today: 112/76 P rior BP: 128/75 (07/01/2017) Her updated medication list for this problem includes: Cartia Xt 180 Mg Oral Capsule Extended Release 24 Hour (Diltiazem hcl coated beads) ..... One tab. daily Aspirin Adult Low Dose 81 Mg Oral Tablet Delayed Release (Aspirin) ..... One tab by mouth daily Coreg 12.5 Mg Oral Tablet (Carvedilol) ..... One tab. twice daily Enalapril Maleate 2.5 Mg Oral Tablet (Enalapril maleate) ..... 1 tablet twice daily Cirilo Enriquez MD Cardiology:Myopathic pains from Crestor. Failed Lipitor before. Statin intolerant. Will leave her off of cholesterol meds and determine panel, especially since she feels a lot of her issues were related to calcium supplementation. Since she has had a prior LA and had MICHELE to the LAD, would ideally need to remain on some form of cholesterol modification. Cirilo Enriquez MD Cardiology:Reepat jose luis garcia to evaluate CMP. E F has improved, has lifevest on, had MUGA sca and discontinuing lifevest to verify improved EF. H er updated medication list for this problem includes: Brilinta 90 Mg Oral Tabs (Ticagrelor) ..... 1 tablet twice dialy Coreg 6.25 Mg Tabs (Carvedilol) ..... One tab. twice daily Enalapril Maleate 2.5 Mg Oral Tabs (Enalapril maleate) ..... 1 tablet twice daily Aspir-81 81 Mg Oral Tbec (Aspirin) ..... 1 tablet daily Cirilo Enriquez MD Cardiology: P rior MICHELE to LAD 3.5x12 Promus Premier. Most recent LVEF 57.5% by MUGA on 08/13/16. Ok to discontinue Brilinta in July, having completed 12 months of DAPT. Cirilo Enriquez MD Cardiology:Added Car tia XT 180mg daily and increased BB dose to Coreg 12.5 mg BID. Cirilo Enriquez MD Cardiology:Added Car tia XT 180mg daily and increased BB dose to Coreg 6.25mg BID. Cirilo Enriquez MD Cardiology:Prior MICHELE to LAD 3.5x12 Promus Premier. Most recent LVEF 57.5% by MUGA on 12/28/16. Ok to discontinue Brilinta in July, having completed 12 months of DAPT. Cirilo Enriquez MD Cardiology Follow up Cirilo bergman MD Cardiology Follow up : H er updated medication list for this problem includes: Atorvastatin Calcium 40 Mg Oral Tabs (Atorvastatin calcium) ..... 1 tablet daily Cirilo Enriquez MD Cardiology Follow up : E F improved, Continue aspirin/brilinta. Cirilo Enriquez MD Cardiology Follow up :On CPAP. S matthew Enriquez MD Cardiology: H er updated medication list for this problem includes: Atorvastatin Calcium 40 Mg Oral Tabs (Atorvastatin calcium) ..... 1 tablet daily Cirilo Enriquez MD Cardiology Cirilo Enriquez MD Cardiology:EF improv ed, can discontinue lifevest. Continue aspirin/brilinta. Cirilo Enriquez MD Cardiology Cirilo Enriquez MD Cardiology follow up :could be related to brilinta, will check pulmonary function test and sleep apnea workup Cirilo Enriquez MD Cardiology follow up:s/p MICHELE LAD Cirilo Enriquez MD Cardiology follow up :EF has improved, has lifevest on, will obtain MUGA scan prior to discontinuing lifevest to verify improved EF. H er updated medication list for this problem includes: Brilinta 90 Mg Oral Tabs (Ticagrelor) ..... 1 tablet twice dialy Coreg 6.25 Mg Tabs (Carvedilol) ..... One tab. twice daily Enalapril Maleate 2.5 Mg Oral Tabs (Enalapril maleate) ..... 1 tablet twice daily Aspir-81 81 Mg Oral Tbec (Aspirin) ..... 1 tablet daily Cirilo Enriquez MD Cardiology follow up :On lipitor, will check lipid panel in a few weeks. Cirilo Enriquez MD Date Name Stress Exercise Card iolite Stress Regadenoson Carotid Duplex Bilat eral Complete Echo Venous Doppler Bilat eral LE - Reflux Arterial Duplex Bi-L ower EX Complete Echo LIPID PANEL HEMOGLOBIN A1c HEPATIC FUNCTION SCHAEFFER EL LIPID PANEL COMPREHENSIVE METABO LIC PANEL W/EGFR MUGA (LVEF) Sleep Study Home DLCO - 49251 FRC - 35428 FVC - 77353 HISTORY OF PROCEDURES Procedure Date Procedure Name Provider Procedure Notes S tatus EKG Cirilo Enriquez MD completed EKG Cirilo Enriquez MD completed EKG Cirilo Enriquez MD completed EKG Cirilo Enriquez MD completed EKG Cirilo Enriquez MD completed SNOMED-CT: 818490323 103908 Current Medications Documented Cirilo Enriquez MD completed Event Monitor Darrell Kent [facility] ed EKG Cirilo Enriquez MD completed SNOMED-CT: [id number] [id number] Current Medications Documented Cirilo Enriquez MD completed Device Check - Life vest Cirilo Enriquez MD completed EKG Cirilo Enriquez MD completed SNOMED-CT: 839654601 [id number] Current Medications Documented Cirilo Enriquez MD completed EKG Cirilo Enriquez MD completed SNOMED-CT: 416401016 458318 Current Medications Documented Cirilo Enriquez MD completed
--- OUTSIDE RECORDS SUMMARY | 2024-08-29 20:27 | XMS_ITS | Encounter Summary ---
Author Organization [facility] [employer] Address [address] [place] [address] Care Team Providers Care Diaper Folder Name Role Phone Carlton Brooks Primary Care Provider Encounter Details Date Type Department Care Team (Late Contact Info) Description 03/30/2024 Orders Only [facility] Oncology and Hematology [address] [place] [address] Venkata Harvey MD [address] [place] [address] [address] [address] Social History Tobacco Use Types [...] Description 02/08/2025 3:45 PM CDT Office Visit [facility] Oncology and Hematology - Am[address] [place] [address] Venkata Harvey MD [address] [place] [address] [employer] [address] [place] [address] documented as of this encounter Procedures Procedure Name Priority Date/Time Associated Diagnosis Comments CHG URINE CREATININE Routine 03/29/2024 9:11 AM CDT documented in this encounter Results * CHG URINE CREATININE (03/29/2024 9:11 AM CDT) Venkata Harvey MD CHG - LABORATORY documented in this encounter Visit Diagnoses Not on filedocumented in this encounter Care Teams Diaper Folder Relationship Specialty Start Date End Date Carlton Brooks DO [address] [address] PCP - General Internal Medicine 04/21/23 documented as of this encounter
--- OUTSIDE RECORDS SUMMARY | 2024-08-29 20:27 | XMS_ITS | Encounter Summary ---
Author Organization [facility] [employer] Address [address] [place] [address] Care Team Providers Care Fork Lift Truck Operator Name Role Phone Carlton Brooks Primary Care Provider Encounter Details Date Type Department Care Team (Late st Contact Info) Description 03/29/2024 Orders Only [facility] Oncology and Hematology Am[facility] [address] [facility] [address] [place] [phone] Scanning, Provider Social History Tobacco Use Types [...] Description 02/08/2025 3:45 PM CDT Office Visit [facility] Oncology and Hematology [facility] [address] [place] [address] Venkata Harvey MD [address] [facility] [address] [place] [address] documented as of this encounter Procedures Procedure Name Priority Date/Time Associated Diagnosis Comments CBC WITH DIFFERENTIAL Routine 03/29/2024 3:05 PM CDT documented in this encounter Results * CBC WITH DIFFERENTIAL (03/29/2024 3:05 PM CDT) Blood Provider Scanning HEMATOLOGY ORDERABLE S documented in this encounter Visit Diagnoses Not on filedocumented in this encounter Care Teams Fork Lift Truck Operator Relationship Specialty Start Date End Date Carlton Brooks DO [address] [address] PCP - General Internal Medicine 04/21/23 documented as of this encounter
--- OUTSIDE RECORDS SUMMARY | 2024-08-29 20:27 | XMS_ITS | Encounter Summary ---
Author Organization [facility] Address [address] [place] [address] Care Team Providers Care Help Desk Engineer Name Role Phone Carlton Brooks DO Primary Care Provider Encounter Details Date Type Department Care Team (Late st Contact Info) Description 01/05/2024 External Device Data STL ABSTRACTION Provider, Abstract [...] Description 02/08/2025 3:45 PM CDT Office Visit [facility] Oncology and Hematology - Amari [address] [facility] [address] [place] [address] Venkata Harvey MD 2[address] [facility] [address] [place] [address] documented as of this encounter Visit Diagnoses Not on filedocumented in this encounter Care Teams Help Desk Engineer Relationship Specialty Start Date End Date Carlton Brooks DO 1181 [facility] [address] [place] [address] PCP - General Internal Medicine 04/21/23 documented as of this encounter
--- OUTSIDE RECORDS SUMMARY | 2024-08-29 20:27 | XMS_ITS | Encounter Summary ---
Author Organization [facility] [employer] Address [address] [place] [address] Care Team Providers Care Senior Warehouse Clerk Name Role Phone Carlton Brooks Primary Care Provider Encounter Details Date Type Department Care Team (Late Contact Info) Description 09/09/2023 Orders Only [facility] Oncology and Hematology [facility] [address] [place] [address] Venkata Harvey MD [address] [place] [address] [address] Social History Tobacco Use Types [...] Description 02/08/2025 3:45 PM CDT Office Visit [facility] Oncology and Hematology Amari [address] [place] [address] Venkata Harvey MD [address] [place] [address] [address] documented as of this encounter Procedures Procedure Name Priority Date/Time Associated Diagnosis Comments NM BONE DENSITY Routine 09/07/2023 3:29 PM SENIOR PAYROLL MANAGER CANCER ANTIGEN 15-3 Routine 09/03/2023 9:48 AM SENIOR PAYROLL MANAGER documented in this encounter Results * NM BONE DENSITY (09/07/2023 3:29 PM SENIOR PAYROLL MANAGER) Anatomical Region Laterality Modality Other Venkata Harvey MD NM ORDERABLES * CANCER ANTIGEN 15-3 (09/03/2023 9:48 AM SENIOR PAYROLL MANAGER) Blood Venkata Harvey MD CHEMISTRY ORDERABLES documented in this encounter Visit Diagnoses Not on filedocumented in this encounter Care Teams Senior Warehouse Clerk Relationship Specialty Start Date End Date Carlton Brooks DO [address]1 [facility] [address] [place] [address] PCP - General Internal Medicine 04/21/23 documented as of this encounter
--- OUTSIDE RECORDS SUMMARY | 2024-08-29 20:28 | XMS_ITS | Encounter Summary ---
Author Organization [facility] [employer] [facility] Address [address] [place] [address] Care Team Providers Care Automotive Electrical Helper Name Role Phone Cartlon Brooks Primary Care Provider Reason for Visit * Reason Comments right breast cancer Encounter Details Date Type Department Care Team (Late st Contact Info) Description 04/21/2023 3:00 PM CDT Office Visit [facility] Oncology and Hematology - [place] [address] [place] [address] Melida hCicas MD [address] [place] [address] Malignant neoplasm of right female [...] Sign Reading Time Taken Comments Blood Pressure 135/78 04/21/2023 2:55 PM CDT Pulse 75 04/21/2023 2:55 PM CDT Temperature 36.4 ??C (97.5 ??F) 04/21/2023 2:55 PM CD T Respiratory Rate 16 04/21/2023 2:55 PM CDT Oxygen Saturation 97% 04/21/2023 2:55 PM CDT Inhaled Oxygen Concentration - - Weight 111.9 kg (246 lb 12.8 oz) 04/21/2023 2:55 PM CDT Height 165.1 cm (5' 5 ) 04/21/2023 2:55 PM CDT Body Mass Index 41.07 04/21/2023 2:55 PM CDT documented in this encounter Progress Notes * Melida Chicas MD - 04/21/2023 4:50 PM CDT REASON FOR CONSULT: RIGHT BREAST INVASIVE CARCINOMA (MIXED LOBULAR AND DUCTAL) BY BIOPSY DONE 03/25/23 ER/TX POSITIVE, HER 2 NEGATIVE DISEASE HPI: Mrs. Rita Garces is a pleasant 57 y/o female presented to oncology clinic on 04/21/23 for further management of newly diagnosed right breast carcinoma. Patient underwent screening mammogram on 12/18/22 which showed a possible mass in the posterior thirdof the lower inner right breast, 10 cm from the nipple. She never had any breast symptoms includingno discharge, pain, or palpable abnormality. [facility] with pathology consistent with invasive mammary carcinoma with mixed ductal and lobular features. This was ER/TX positive and Her 2/priti negative. Patient then underwent bilateral breast MRI on 04/10/23 revealing a 2.1 x 1.8 x 1.5 cm mass with dilated margins in the lower inner rightbreast at 5:00 located 8 cm from nipple. Germline testing was performed and is positive for MUTYH he terogeneous mutation. Patient has seen surgical oncologist Dr. Whitt and radiation oncologist Dr. Mckenna. Patient has opted for Lumpectomy with SLND and is undergoing insurance approval. Dr. Mckenna plans to do radiation post lumpectomy. Patient is here to establish care with medical oncology. PMHX: 1.CAD- s/p stent in 2016 2.DM II 3.Hypertension 4.Thyroid cancer- s/p total thyroidectomy 5.GERD 6.Iatrogenic Hypothyroidism 7.Environmental allergies 8.Sleep apnea 9.Hypocalcemia 10. Paroxysmal Afib SOCIAL HX: Patient is and lives with her . She has 5 biological children (3 girls and 2 boys) ages 20 to 34. 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 Patient is prior smoker when she smoked for 37 years 1/2 PPD. She quit in 2016. FAMILY HX: One sister with lung cancer and living. There is no hx of breast, ovarian or endometrial cancers. There are no GI cancers as well in the family. 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 She denies excess fatigue,weight loss or night sweats. There are no fevers or chills. Denies dizziness, falls, CVA or TIA. Denies peripheral lymphadenopathy. Denies any breast complains and never felt the right breast mass due to its position, deep posteriorly. Denies nipple discharge. Denies n/v/d. There is no chest pain, dyspnea, cough or hemoptysis. Denies abdominal pain, hematochezia or melena. No hematuria. PHYSICAL EXAMINATION: Vitals per nursing chart GENERAL: Alert and oriented x 3, no acute distress, pleasant female HEENT: PERRL, EOMI, no oral sores CV: RRR, no m/g/r RESP: Clear to auscultation bilaterally ABD: Soft, NT, ND, BS+ BREAST: Deferred as patient stated that she never felt the mass due to its position EXT: no edema SKIN: No rash NEURO: no focal deficits PATHOLOGY- 03/25/23 right breast mass core needle biopsy- Right breast mass core needle biopsy was performed at [facility] on 03/25/23 with pathology consistent with invasive mammary carcinoma with mixed ductal and lobular features. This was ER/TX positive and Her 2/priti negative. IMAGIN04/10/23 Bilateral Breast MRI- Bilateral breast MRI performed on 04/10/23 showed a 2.1 x 1.8 x 1.5 cmmass with dilated margins in the lower inner right breast at 5:00 located 8 cm from nipple. LABS: 01/29/23 CBC- WBC 7.1, Hemoglobin 14.7, Platelets 246,000. Creatinine 0.9, T. Bili 0.5, AST 31, ALT 24, ALK Phos 47 A/P: This is a 57 y/o female with- 1.Right Breast Cancer- Patient underwent screening mammogram on 12/18/22 which showed a possible mass in the posterior thirdof the lower inner right breast, 10 cm from the nipple. She never had any breast symptoms includingno discharge, pain, or palpable abnormality. Patient [facility] with pathology consistent with invasive mammary carcinoma with mixed ductal and lobular features. This was ER/TX positive and Her 2/priti negative. Patient then underwent bilateral breast MRI on 04/10/23 revealing a 2.1 x 1.8 x 1.5 cm mass with dilated margins in the lower inner rightbreast at 5:00 located 8 cm from nipple. Germline testing was performed and is positive for MUTYH he terogeneous mutation. Patient has seen surgical oncologist Dr. Whitt and radiation oncologist Dr. Mckenna. Patient has opted for Lumpectomy with SLND and is undergoing insurance approval. Dr. Mckenna plans to do radiation post lumpectomy. We will await the final pathology from lumpectomy to assign final pathological stage. She will needOncotype dx testing as well. Patient has opted for Breast conservation therapy and will need radiation. Final pathology will decide the need for chemotherapy along with oncotype dx score. She will need endocrine therapy with Aromatase Inhibitor for 5 years. She will return to clinic to see Dr. Harvey in 4 weeks to review pathology and formulate further management plan. 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 There is no family hx of colon cancer. Patient had two colonoscopies- 2013 and 2019 per patient's account and there were no excessive polyps. Dr. Whitt has referred the patient to genetic counselor. documented in this encounter Plan of Treatment Upcoming Encounters Date Type Department Care Team (Late st Contact Info) Description 02/08/2025 3:45 PM CDT Office Visit [facility] Oncology and Hematology - [place] [address] [facility] [address] [place] [address] Venkata Harvey MD [address] [facility] [address] [place] [address] Scheduled Orders Name Type Priority Associated Diagnoses Orde r Schedule COMPREHENSIVE METABOLIC PANEL Lab Routine Malignant neoplasm of right female breast, unspecified estrogen receptor status, unspecified site of breast Expected: 04/21/2023, Expires: 04/21/2024 CBC WITH DIFFERENTIAL Lab Routine Malignant neoplasm of right female breast, unspecified estrogen receptor status, unspecified site of breast Expected: 04/21/2023, Expires: 04/21/2024 CANCER ANTIGEN 15-3 Lab Routine Malignant neoplasm of right female breast, unspecified estrogen receptor status, unspecified site of breast Expected: 04/21/2023, Expires: 04/21/2024 documented as of this encounter Visit Diagnoses Diagnosis Malignant neoplasm of right female breast, unspecified estrogen receptor status, unspecified site of breast- Primary documented in this encounter Care Teams Automotive Electrical Helper Relationship Specialty Start Date End Date Carlton Brooks DO [address] [address] PCP - General Internal Medicine 04/21/23 documented as of this encounter
--- OUTSIDE RECORDS SUMMARY | 2024-08-29 20:28 | XMS_ITS | Encounter Summary ---
Author Organization [facility] [employer] Address [address] [place] [address] Care Team Providers Care Platform Material Handling Supervisor Name Role Phone Carlton Brooks Primary Care Provider Encounter Details Date Type Department Care Team ([facility] Contact Info) Description 05/13/2023 Orders Only [facility] Oncology and Hematology [facility] [address] [place] [address] Venkata Harvey MD [address] [place] [address] [employer] [address] [address] Social History Tobacco Use Types [...] Description 02/08/2025 3:45 PM CDT Office Visit [facility] Oncology and Hematology - Am[place] [address] [place] [address] Venkata Harvey MD [address] [place] [address] [employer] [address] [place] [address] documented as of this encounter Procedures Procedure Name Priority Date/Time Associated Diagnosis Comments CBC WITH DIFFERENTIAL Routine 05/13/2023 11:46 AM CDT documented in this encounter Results * CBC WITH DIFFERENTIAL (05/13/2023 11:46 AM CDT) Blood Venkata Harvey MD HEMATOLOGY ORDERABLE S documented in this encounter Visit Diagnoses Not on filedocumented in this encounter Care Teams Platform Material Handling Supervisor Relationship Specialty Start Date End Date Carlton Brooks DO [address] [address] PCP - General Internal Medicine 04/21/23 documented as of this encounter
--- OUTSIDE RECORDS SUMMARY | 2024-08-29 20:28 | XMS_ITS | Encounter Summary ---
Author Organization [facility] [employer] Address [address] [place] [address] Care Team Providers Care Carving Machine Operator Name Role Phone Carlton Brooks Primary Care Provider Encounter Details Date Type Department Care Team (Late Contact Info) Description 05/14/2023 Orders Only [facility] Oncology and Hematology Am[address] [place] [address] Venkata Harvey MD [address] [place] [address] [employer] [address] [place] [address] Social History Tobacco Use Types Packs/Day [...] Description 02/08/2025 3:45 PM CDT Office Visit [facility] Oncology and Hematology - [place] [address] [place] [address] Venkata Harvey MD [address] [place] [address] [employer] [address] [place] [address] documented as of this encounter Procedures Procedure Name Priority Date/Time Associated Diagnosis Comments COMPREHENSIVE METABOLIC PANEL Routine 05/13/2023 8:50 AM CDT documented in this encounter Results * COMPREHENSIVE METABOLIC PANEL (05/13/2023 8:50 AM CDT) Blood Venkata Harvey MD CHEMISTRY ORDERABLES documented in this encounter Visit Diagnoses Not on filedocumented in this encounter Care Teams Carving Machine Operator Relationship Specialty Start Date End Date Carlton Brooks DO [address] [address] PCP - General Internal Medicine 04/21/23 documented as of this encounter
--- OUTSIDE RECORDS SUMMARY | 2024-08-29 20:28 | XMS_ITS | Encounter Summary ---
Author Organization [facility] [employer] Address [address] [place] [address] Care Team Providers Care Supervisor Melt House Name Role Phone Carlton Brooks Primary Care Provider Encounter Details Date Type Department Care Team (Late st Contact Info) Description 06/15/2023 4:00 PM CDT Telephone Check Up [facility] Oncology and Hematology - [place] [address] [facility] [address] [place] [address] Venkata Harvey MD [address] [facility] [address] [place] [address] Social History Tobacco Use Types Packs/Day Years Used Date Smoking Tobacco: Never Smokeless Tobacco: Never Alcohol Use Standard Drinks/Week Comments Yes 0 (1 standard drink = 0.6 oz pur e alcohol) socially Sex and Gender Information Value Date Recorded Sex Assigned at Not on file Gender Identity Not on file Sexual Orientation Not on file documented as of this encounter Progress Notes * Venkata Harvey MD - 06/15/2023 4:51 PM CDT HEMATOLOGY / ONCOLOGY PROGRESS NOTE [...] therapy on June 14, 2023 TREATMENT HISTORY SUBJECTIVE This is a audio visit with patient. She denies any night sweats fever chills and weight loss. She has already started radiation therapy treatment. Denies any other new complaint.. Review of system Constitutional: Patient did not [...] 24 hours: As per nursing note Exam: This is a audio visit. [facility] Labs from May 13 showed [...] back at 19. Adjuvant chemotherapy not recommended. She has already started radiation therapy treatment. I will see her back in 5 weeks to start endocrine therapy with Arimidex. 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 There is no family hx of colon cancer. Patient had two colonoscopies- 2013 and 2019 per patient's account and there were no excessive polyps. Dr. Whitt has referred the patient to genetic counselor. 06/15/2023 Venkata Harvey MD This encounter was completed via audio-only two way synchronous communication. Patient's identity confirmed yes Patient gave verbal consent to have these services billed to their insurance and expressed understanding that co-insurance and deductible may apply: yes Time spent by the provider delivering the care documented in this encounter 20 minutes. documented in this encounter Plan of Treatment Upcoming Encounters Date Type Department Care Team (Late st Contact Info) Description 02/08/2025 3:45 PM CDT Office Visit [facility] Oncology and Hematology - [place] [address] [facility] [address] [place] [address] Venkata Harvey MD [address] [facility] [address] [place] [address] documented as of this encounter Visit Diagnoses Not on filedocumented in this encounter Care Teams Supervisor Melt House Relationship Specialty Start Date End Date Carlton Brooks DO 1181 [facility] [address] [place] [address] PCP - General Internal Medicine 04/21/23 documented as of this encounter
--- OUTSIDE RECORDS SUMMARY | 2024-08-29 20:28 | XMS_ITS | Encounter Summary ---
Author Organization [facility] [employer] Address [address] [place] [address] Care Team Providers Care Nursing Home Admissions Director Name Role Phone Carlton Brooks DO Primary Care Provider Encounter Details Date Type Department Care Team (Late Contact Info) Description 04/21/2023 [facility] Oncology and Hematology - [place] [address] [place] [address] [place] [address] [place] [address] [employer] [address] [place] [address] Social History Tobacco Use Types Packs/Day [...] Hematology - [place] [address] [place] [address] [place] [address] [place] [address] [employer] [address] [place] [address] documented as of this encounter Visit Diagnoses Not on filedocumented in this encounter Care Teams Nursing Home Admissions Director Relationship Specialty Start Date End Date Carlton Brooks DO [address] [facility] [address] [place] [address] PCP - General Internal Medicine 04/21/23 documented as of this encounter
--- OUTSIDE RECORDS SUMMARY | 2024-08-29 20:28 | XMS_ITS | Encounter Summary ---
Author Organization [facility] [employer] Address [address] [place] [address] Care Team Providers Care Doper Name Role Phone Carlton Brooks Primary Care Provider Reason for Visit * Reason Comments Follow Up Encounter Details Date Type Department Care Team (Late st Contact Info) Description 05/21/2023 2:45 PM CDT Office Visit [facility] Oncology and Hematology - [place] [address] [facility] [address] [place] [address] Venkata Harvey MD [address] [facility] [address] [place] [address] Malignant neoplasm of right female [...] Sign Reading Time Taken Comments Blood Pressure 130/69 05/21/2023 2:29 PM CDT Pulse 80 05/21/2023 2:29 PM CDT Temperature 36.5 ??C (97.7 ??F) 05/21/2023 2:29 PM CD T Respiratory Rate 16 05/21/2023 2:29 PM CDT Oxygen Saturation 97% 05/21/2023 2:29 PM CDT Inhaled Oxygen Concentration - - Weight 116.2 kg (256 lb 3.2 oz) 05/21/2023 2:29 PM CDT Height - - Body Mass Index 42.63 04/21/2023 2:55 PM CDT documented in this encounter Progress Notes * Venkata Harvey MD - 05/21/2023 2:52 PM CDT HEMATOLOGY / ONCOLOGY PROGRESS NOTE Patient Identification: Name: Zuri Garces Age: 57 y.o. Sex: female : 1965 DIAGNOSIS T1b N0 M0 stage I invasive mammary carcinoma with both ductal and lobular features ER/HI positive HER2/priti negative grade 1 with associated DCIS status post lumpectomy and right axillary lymph node biopsy done on April 29, 2023. Tumor was 0.8 cm in 1 sentinel lymph node negative. CURRENT TREATMENT Expectant TREATMENT HISTORY SUBJECTIVE Patient came to the office for follow-up visit after the lumpectomy was performed. She is recovering well from the surgery. She denies any new lung bumps or lymphadenopathy. No other new complaints. Review of system [...] dizziness Skin: No lumps, bumps or rashes. Objective: Vital signs in last 24 hours: [...] No lymphadenopathy Neuro: No obvious focal deficit PATH LABS Labs from May 13 showed CA 15-3 17 creatinine 0.9 total bilirubin 0.5 WBC 7.3 hemoglobin 13.7platelet 203,000. @IMAGEIMP@ Assessment: Plan: There are no problems to display for this patient. T1b N0 M0 stage I invasive mammary carcinoma with both ductal and lobular features ER/HI positive HER2/priti negative grade 1 with associated DCIS status post lumpectomy and right axillary lymph node biopsy done on April 29, 2023. Tumor was 0.8 cm in 1 sentinel lymph node negative. I have discussed the pathology report with patient in detail. I have also discussed the TNM stagingsystem and the management of early stage breast cancer. I will order the Oncotype DX recurrence score. She has already met radiation oncologist. I have recommended her to follow-up with her for radiation planning. Based on the Oncotype DX recurrence score will decide about chemotherapy. She will start hormonal therapy with anastrozole after completion of radiation therapy. I have answered all herquestions to patient's satisfaction. 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 There is no family hx of colon cancer. Patient had two colonoscopies- 2013 and 2019 per patient's account and there were no excessive polyps. Dr. Whitt has referred the patient to genetic counselor. ? TOBACCO COUNSELING She is not a tobacco/nicotine user. 05/21/2023 Venkata Harvey MD documented in this encounter Plan of Treatment Upcoming Encounters Date Type Department Care Team (Late st Contact Info) Description 02/08/2025 3:45 PM CDT Office Visit [facility] Oncology and Hematology [facility] [address] [place] [address] Venkata Harvey MD [address] [facility] [address] [place] [address] documented as of this encounter Visit Diagnoses Diagnosis Malignant neoplasm of right female breast, unspecified estrogen receptor status, unspecified site of breast- Primary documented in this encounter Care Teams Doper Relationship Specialty Start Date End Date Carlton Brooks DO [facility] [address] [place] [address] PCP - General Internal Medicine 04/21/23 documented as of this encounter
== END 2024-08-23 08:16 | disposition home or self-care (01) ==
LOC: ANHLAB 08:18
PROVIDERS: PCP Internal Medicine; Visit Provider Internal Medicine Endocrinology, Diabetes & Metabolism
DX: E89.2 Postprocedural hypoparathyroidism (principal)
CPT/HCPCS: 36415; 80069; 82330

== ENCOUNTER 2024-10-04 08:15 | Outpatient (CLI) | payer OTHER, SELFPAY ==
--- OUTSIDE RECORDS SUMMARY | 2024-10-04 08:22 | XMS_ITS | Clinical Summary ---
Author Organization [facility] Address [address] [place] [address] Care Team Providers Care Trial Management Associate Name Role Phone ToddCarlton Fantasma Primary Care Provider Allergies Active Allergy Reactions Criticality Noted Date Comments Morphine Other (See Comments) Low 08/01/2016 Fwelfoz-Rkd-Vfq Reductase Inhibitors Muscle Pain Low 04/27/2018 Tetracycline Hives High 08/01/2016 Medications FLUTICASONE PROPION-SALMETER OL INHALATION Take by inhalation. Active traMADoL (ULTRAM) [...] Encounters Date Type Department Care Team Description 09/07/2024 External Device Data [facility] ABSTRACTION Provider, Abstract 09/07/2024 External Device Data [facility] ABSTRACTION Provider, Abstract 08/31/2024 External Device Data [facility] ABSTRACTION Provider, Abstract 08/23/2024 External Device Data [facility] ABSTRACTION Provider, [...] = 0.6 oz pur e alcohol) socially Comments Unknown Sex and Gender Information Value Date Recorded Sex Assigned at Not on file Legal Sex Female 3:25 PM CDT Gender Identity Not on file Sexual Orientation Not on file Last Filed Vital Signs Vital Sign Reading Time Taken Comments Blood Pressure 140/88 05/11/2024 3:24 PM CDT Pulse 101 05/11/2024 3:22 PM CDT Temperature 36.5 C (97.7 F) 05/11/2024 3:22 PM CDT Respiratory Rate 16 05/11/2024 3:22 PM CDT [...] Center Oncology and Hematology - [place] [address] [facility] [address] [place] [address] Venkata Harvey MD [address] [facility] [address] [place] [address] Health Maintenance Due Date Last [...] on patient's age to complete this topic Insurance [facility] CHOICE [id number] Care Teams Trial Management Associate Relationship Specialty Start Date End Date Carlton Brooks DO [address] [facility] [address] [place] [address] PCP - General Internal Medicine 04/21/23
[2024-10-04 08:41] LABS: Basophils Percent Auto 0.5 % (0.2-1.2); Eosinophils Absolute Auto 0.1 K/mm3 (0-0.3); Eosinophils Percent Auto 1.8 % (0-4.4); Hematocrit 43.3 % (37.0-47.0); Hemoglobin 14.9 g/dL (12.0-15.0); Immature Granulocyte Absolute 0.04 K/mm3 (0.00-0.031); Immature Granulocyte Percent A 0.6 % (0-0.5); Lymphocytes Absolute Auto 0.69 K/mm3 (0.9-3.2); Lymphocytes Percent Auto 10.5 % (18.3-44.2); Mean Corpuscular HGB Conc 34.4 g/dl (32-36); Mean Corpuscular Hemoglobin 31.7 pg (26-34); Mean Corpuscular Volume 92.1 fl (80-100); Mean Platelet Volume 8.3 fl (7.4-10.4); Monocytes Absolute Auto 0.7 K/mm3 (0.1-0.6); Monocytes Percent Auto 9.9 % (2.6-8.5); Neutrophils Absolute Auto 5.1 K/mm3 (1.3-6.7); Neutrophils Percent Auto 76.7 % (45.5-73.1); Platelet Count Result 251 k/mm3 (150-375); Red Cell Distribution Width 13.1 % (11.5-14.5); White Blood Count 6.6 K/mm3 (4.5-10.0)
[2024-10-04 11:05] LABS: Cholesterol 182 mg/dL (0-200); HDL Direct 47 mg/dL; Triglycerides 119 mg/dL (<150)
[2024-10-04 11:10] LABS: Albumin Level 4.7 g/dL (3.5-5.1); Anion Gap 12 mmol/L (4-12); Blood Urea Nitrogen 22 mg/dL (7-17); Carbon Dioxide 29 mmol/L (22-30); Chloride 102 mmol/L (98-107); Estimated Glomerular Filt Rate > 60; Glucose 122 mg/dL (65-110); Phosphorus 5.1 mg/dL (2.5-4.5); Sodium 143 mmol/L (137-145)
[2024-10-04 11:14] LABS: Alanine Aminotransferase 34 U/L (6-35); Albumin Level 4.8 g/dL (3.5-5.1); Alkaline Phosphatase 61 U/L (38-126); Anion Gap 11 mmol/L (4-12); Aspartate Amino Transferase 40 U/L (14-36); Bilirubin,Total 0.7 mg/dL (0.2-1.3); Blood Urea Nitrogen 23 mg/dL (7-17); CRP 1.2 mg/dL (<1.0); Calcium 9.1 mg/dL (8.4-10.2); Carbon Dioxide 29 mmol/L (22-30); Chloride 102 mmol/L (98-107); Estimated Glomerular Filt Rate > 60; Glucose 123 mg/dL (65-110); Potassium 4.9 mmol/L (3.4-5.0); Sodium 142 mmol/L (137-145)
[2024-10-04 11:16] LABS: LDL Cholesterol Direct 113 mg/dL
== END 2024-10-04 08:16 | disposition home or self-care (01) ==
PROVIDERS: Internal Medicine Cardiovascular Disease; Internal Medicine Endocrinology, Diabetes & Metabolism; PCP Internal Medicine; Referring Provider Internal Medicine; Visit Provider Internal Medicine Hematology & Oncology
DX: M17.0 Bilateral primary osteoarthritis of knee (principal); E78.5 Hyperlipidemia, unspecified; E89.2 Postprocedural hypoparathyroidism; M54.50 Low back pain, unspecified; G89.29 Other chronic pain; M05.79 Rheumatoid arthritis with rheumatoid factor of multiple sites without organ or systems involvement
CPT/HCPCS: 36415; 80053; 80061; 80069; 85025; 86140

== ENCOUNTER 2024-10-18 07:20 | Outpatient (CLI) | payer OTHER, SELFPAY | END 2024-10-18 07:21 | disposition home or self-care (01) | LOC: ANHIMG 07:23 | PROVIDERS: PCP Internal Medicine; Visit Provider Surgery | DX: Z12.31 Encounter for screening mammogram for malignant neoplasm of breast (principal) | CPT/HCPCS: 77063; 77067 ==

== ENCOUNTER 2024-11-08 13:48 | Outpatient (CLI) | payer OTHER, SELFPAY ==
[2024-11-08 13:57] LABS: Basophils Absolute Auto 0.1 K/mm3 (0.0-0.1); Eosinophils Absolute Auto 0.1 K/mm3 (0-0.3); Eosinophils Percent Auto 1.9 % (0-4.4); Hematocrit 41.3 % (37.0-47.0); Hemoglobin 14.3 g/dL (12.0-15.0); Immature Granulocyte Absolute 0.03 K/mm3 (0.00-0.031); Immature Granulocyte Percent A 0.4 % (0-0.5); Lymphocytes Absolute Auto 1.27 K/mm3 (0.9-3.2); Lymphocytes Percent Auto 18.2 % (18.3-44.2); Mean Corpuscular HGB Conc 34.6 g/dl (32-36); Mean Corpuscular Hemoglobin 31.5 pg (26-34); Mean Platelet Volume 8.4 fl (7.4-10.4); Monocytes Absolute Auto 0.8 K/mm3 (0.1-0.6); Monocytes Percent Auto 11.9 % (2.6-8.5); Neutrophils Absolute Auto 4.7 K/mm3 (1.3-6.7); Neutrophils Percent Auto 66.6 % (45.5-73.1); Platelet Count Result 258 k/mm3 (150-375); Red Blood Count 4.54 M/mm3 (4.2-5.4); Red Cell Distribution Width 13.2 % (11.5-14.5)
[2024-11-08 14:42] LABS: Alanine Aminotransferase 32 U/L (6-35); Albumin Level 4.8 g/dL (3.5-5.1); Alkaline Phosphatase 54 U/L (38-126); Anion Gap 15 mmol/L (4-12); Aspartate Amino Transferase 35 U/L (14-36); Bilirubin,Total 0.4 mg/dL (0.2-1.3); Blood Urea Nitrogen 25 mg/dL (7-17); Calcium 9.4 mg/dL (8.4-10.2); Carbon Dioxide 23 mmol/L (22-30); Chloride 102 mmol/L (98-107); Estimated Glomerular Filt Rate 59; Glucose 119 mg/dL (65-110); Potassium 4.4 mmol/L (3.4-5.0); Sodium 140 mmol/L (137-145)
--- OUTSIDE RECORDS SUMMARY | 2024-11-08 16:03 | XMS_ITS | Clinical Summary ---
Author Organization [facility] Address [address] [place] [address] Care Team Providers Care Board Saw Runner Name Role Phone OlgaCarlton barnes Fantasma Primary Care Provider Allergies Active Allergy Reactions Criticality Noted Date Comments Morphine Other (See Comments) Low 08/01/2016 Yjebplj-Lvo-Mcn Reductase Inhibitors Muscle Pain Low 04/27/2018 Tetracycline [...] Encounters Date Type Department Care Team Description 11/02/2024 External Device Data [facility] ABSTRACTION Provider, Abstract 10/25/2024 External Device Data [facility] ABSTRACTION Provider, Abstract 10/25/2024 External Device Data [facility] ABSTRACTION Provider, Abstract 10/24/2024 External Device Data [facility] ABSTRACTION Provider, Abstract 10/22/2024 External Device Data [facility] ABSTRACTION Provider, Abstract 10/21/2024 External Device Data [facility] ABSTRACTION Provider, Abstract 10/19/2024 External Device Data [facility] ABSTRACTION Provider, Abstract 10/04/2024 External Device Data [facility] ABSTRACTION Provider, Abstract [...] Description 02/08/2025 3:45 PM CDT Office Visit [facility] Oncology and Hematology - [place] [address] [facility] [address] [place] [address] Venkata Harvey MD [address] [facility] [address] [place] [address] Health Maintenance Due Date Last Done Comments Pre-Diabetes and Diabetes Screening 1965 DTAP/TDAP/TD VACCINES (1 - Tdap) 1983 PAP SMEAR 1985 CERVICAL CANCER SCREENING 1994 HPV/Cotest 1994 PAP SMEAR 1994 BREAST CANCER SCREENING 2004 COLORECTAL SCREENING 2009 Colorectal Cancer Screening 2009 FIT-DNA Q 3 years 2009 FIT/FOBT Q 1 year 2009 Flex Sig/CT Colonography Q 5 years 2009 ZOSTER VACCINE (1 of 2) 2014 INFLUENZA VACCINE (#1) 2024 RSV VACCINE (60+ or ) (1 - Risk 60-74 years 1-dose series) 2024 Preventative Visit- Commercial 08/17/2024 HEPATITIS B VACCINES Aged Out No long er eligible based on patient's age to complete this topic Insurance [place] [place] [address] CHOICE [id number] Care Teams Board Saw Runner Relationship Specialty Start Date End Date Carlton Brokos DO [address] [facility] [address] [place] [address] PCP - General Internal Medicine 04/21/23
--- OUTSIDE RECORDS SUMMARY | 2024-11-08 16:03 | XMS_ITS | CONTINUITY OF CARE DOCUMENT ---
Author Name jacob, jacob Address Unknown Organization [facility] Address [address] [facility] [address] [place] [address] Phone [phone] Care Team Providers Care Shingles Roofer Name Role Phone Cirilo Enriquez MD Unavailable CHI LUNA, PAKO Unavailable [phone] PAKO MIRELES MD Unavailable [phone] PROBLEMS Condition Status Date Provider Notes Atrial fibrillation active Darrell Kent Family History of Hypertension: completed - Cirilo Enirquez MD Congestive Heart Failure active ? Cirilo bergman MD Hyperlipidemia active ? Cirilo Enriquez MD Hypertension active ? Cirilo Enriquez MD Myocardial Infarction active ? Cirilo deluca MD (History of) CARDIOMYOPATHY active Cirilo Enriquez MD CAD active Cirilo Enriquez MD AMI anterior wall active Cirilo Estrada HTN essential completed - Cirilo Enriquez MD Shortness of breath active Cirilo Enriquez MD Snoring active Cirilo Enriquez MD Sleep apnea active Cirilo Enriquez MD Hypothyroidism active Cirilo Enriquez MD Obesity active Cirilo Enriquez MD Statin Intolerant active Dinorah Howard Leg pain - R knee/leg active Ross Estrada Edema - localized active Billy Plurad ENCOUNTERS Date Type Provider Location Encounter Diag nosis - In-person encounter Office Visit Cirilo Enriquez MD [place] [facility] - In-person encounter Office Visit Cirilo Enriquez MD [place] - In-person encounter Office Visit Cirilo Enriquez MD [place] Edema - localized - In-person encounter Office Visit Cirilo Enriquez MD [place] [facility] - In-person encounter Office Visit Ross Hayes MD [facility] Leg pain - R knee/leg - In-person encounter Office Visit Cirilo Enriquez MD [place] Statin Intolerant - In-person encounter Office Visit Cirilo Enriquez MD [place] [facility] Family History of Hypertension:CARDIOMYOPATHYHTN essentialHypothyroidismObesity - In-person encounter Office Visit Cirilo Enriquez MD [place] [facility] - In-person encounter Office Visit Cirilo Enriquez MD [facility] Office - In-person encounter Office Visit Cirilo Enriquez MD [place] [facility] Congestive Heart FailureHyperlipidemiaHypertensionMyocardial InfarctionCARDIOMYOPATHYCADAMI anterior wallShortness [...] Body Mass Index (Ratio) 43.26 kg/m2 Billy [facility] blood pressure, diastolic 70 mm[Hg] Christiano vogel Melton blood pressure, systolic 118 mm[Hg] Chelo jeffries Howell oxygen saturation, oximetry 98 % [facility] respiratory rate E&M 16 /min [facility] pulse rate 73 /min [facility] weight E&M 260 [lb_av] Brigette Melton height E&M 65 [in_i] Brigette Melton Body Mass Index (Ratio) 42.43 kg/m2 [...] Spencer lder height E&M 65 [in_i] Franci Corwintaryn lder Body Mass Index (Ratio) 41.86 kg/m2 [...] E respiratory rate E&M 18 /min Franci Soolmon noeladityacristobal pulse rate 76 /min Franci Johanna [...] TABLET completed 8 pills on thursday - Guild Melton MELATONIN TABLET completed once daily - [...] Cirilo Enriquez MD smoking, year quit 2015 aJnette valdez smoking, date started 1977 Karin Jewell [...] Flor rao is a former smoker. Cirilo nEriquez MD alcohol use, type rarely Guild In gram alcohol use yes Guild Melton smoking, year quit 2015 Brigette I ngram smoking, date started 1977 Killee n Melton cigarette use yes Brigette Melton smoking status Former smoker Guild Ingr am number of grandchildren Cirilo Enriquez [...] started 1977 Franci Kimbrough cigarette use yes Franci Reed stallworth smoking [...] type rarly Jaja Alisa alcohol use yes Jaja Alisa smoking, year quit 2015 Jaja Tre s smoking, date started 1977 Jaja Alisa [...] Policy type / Coverage type Johanne red democrat ID [id number] PAY [id number] ADVANCE DIRECTIVES Name Date DISCUSSED - NO [...] 1 tab daily Orders: C omplete Echo ([id number]) Cirilo Enriquez MD Cardiology follow up : C holesterol levels were fairly good on recent blood test dated 01/29/18. Starting DASH diet. Cirilo Enriquez MD Cardiology follow up : L VEF 60%, PHTN, PAP 46 01/01/2018 LVEF has imrpoved from 20% since her NC. N eeds echo done to reassess LVF [...] LVEF has imrpoved from 20% since her NC. Cirilo Enriquez MD Cardiology Cirilo Enriquez MD Cardiology: A dded Cartia XT 180mg daily and increased BB dose to Coreg 12.5 mg BID. Her updated medication list for this problem includes: Aspirin 325 Mg Oral Tablet (Aspirin) ..... One tab. daily Coreg 12.5 Mg Oral Tablet (Carvedilol) ..... One tab. twice daily Orders: E KG ([id number]) Cirilo Enriquez MD Cardiology: P rior MICHELE [...] muscle/tendon/joint cause. 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 I will check an RICK but she [...] supplementation. Since she has had a prior NC and had MICHELE to the LAD, would [...] MUGA (LVEF) Sleep Study Home DLCO - 94173 FRC - 34831 FVC - 43883 HISTORY OF PROCEDURES Procedure Date Procedure Name Provider Procedure Notes S tatus EKG Cirilo Enriquez MD completed EKG Cirilo Enriquez MD completed EKG Cirilo Enriquez MD completed EKG Cirilo Enriquez MD completed EKG Cirilo Enriquez MD completed SNOMED-CT: 156583357 [id number] Current Medications Documented Cirilo Enriquez MD completed Event Monitor Darrell Kent [facility] ed EKG Cirilo Enriquez MD completed SNOMED-CT: 107557921 496374 Current Medications Documented Cirilo Enriquez MD completed Device Check - Life vest Cirilo Enriquez MD completed EKG Cirilo Enriquez MD completed SNOMED-CT: 650469229 765117 Current Medications Documented Cirilo Enriquez MD completed EKG Cirilo Enriquez MD completed SNOMED-CT: 980670129 692665 Current Medications Documented Cirilo Enriquez MD completed
[2024-11-09 09:18] LABS: CA 15-3 16 U/mL (<32)
== END 2024-11-08 13:49 | disposition home or self-care (01) ==
LOC: ANHLAB 13:49
PROVIDERS: PCP Internal Medicine; Visit Provider Internal Medicine Hematology & Oncology
DX: C50.911 Malignant neoplasm of unspecified site of right female breast (principal)
CPT/HCPCS: 36415; 80053; 85025; 86300

== ENCOUNTER 2025-01-13 16:41 | Emergency (ER) | payer OTHER, SELFPAY ==
--- NOTE | 2025-01-13 16:55 | ED.SKABFB ---
HPI - Skin/Abscess/Foreign Bdy General Chief complaint: Skin/Abscess/Foreign Body Stated complaint: lump on right leg Time Seen by Provider: 01/13/25 16:45 Source: patient Mode of arrival: ambulatory Limitations: no limitations History of Present Illness HPI narrative: Patient is a 59-year-old female presents with redness and swelling to right lower leg. Patient states it has been present for 2 weeks but is only slightly improving. Patient is unsure what the initial cause was, possibly a bug bite. States she was trying on pants at [employer] and the next day she noticed it. Patient has been using triple antibiotic ointment and keeping it covered. Denies any drainage, pain or itching at the site. Denies any fever, chills, nausea vomiting, diarrhea. Related Data Home Medications ?Medication ?Instructions ?Recorded ?Confirmed ?Last Taken ?Type aspirin 81 mg tablet,delayed 81 mg PO DAILY 12/29/19 10/25/24 04/22/23 History release (Adult Low Dose Aspirin) loratadine 10 mg tablet (Claritin) 10 mg PO DAILY 12/29/19 10/25/24 Unknown History magnesium oxide 800 mg PO BID 12/29/19 10/25/24 Unknown History omeprazole magnesium 20 mg 20 mg PO DAILY 12/29/19 10/25/24 Unknown History tablet,delayed release (Prilosec OTC) multivitamin 1 cap PO QAM 02/27/20 10/25/24 Unknown History fluticasone propionate 50 1 spray intranasal DAILY 08/30/20 10/25/24 Unknown History mcg/actuation nasal spray,suspension tramadol 50 mg tablet 50 mg PO TID PRN Pain 05/09/21 01/13/25 Unknown History cyclobenzaprine 5 mg tablet 5 mg PO QHS PRN Insomnia 01/07/22 10/25/24 Unknown History acetaminophen 500 mg tablet 1,000 mg PO DAILY 10/27/22 10/25/24 Unknown History ferrous sulfate 325 mg (65 mg 325 mg PO EVERY OTHER DAY 10/27/22 10/25/24 Unknown History iron) tablet azathioprine 50 mg tablet 50 mg PO TID 12/04/22 10/25/24 Unknown History zinc 50 mg tablet 50 mg PO Q48H 04/24/23 10/25/24 Unknown History calcium carbonate (Calcium 500) 500 mg PO BID 07/20/24 10/25/24 Unknown History niacin 250 mg tablet,extended 500 mg PO DAILY 10/25/24 10/25/24 Unknown History release Allergies Allergy/AdvReac Type Severity Reaction Status Date / Time tetracycline Allergy Unknown Rash Verified 01/13/25 16:56 morphine AdvReac Mild Vomiting Verified 01/13/25 16:56 Vrwqjwl-VXH-HsF Reductase AdvReac Mild Muscle Pain Verified 01/13/25 16:56 Inhibitor Review of Systems Review of Systems: All systems reviewed & are unremarkable except as noted in HPI and below Constitutional: Constitutional: Denies body ache(s), Denies chills, Denies fatigue, Denies fever(s), Denies headache(s), Denies malaise and Denies weakness Eyes: Eyes: Denies blurry vision, Denies irritation and Denies loss of vision ENT: Denies otalgia, Denies headache(s), Denies nasal discharge, Denies sinus pain and Denies sore throat Cardiovascular: Cardiovascular: Denies chest pain, Denies irregular heart rhythm and Denies dyspnea Respiratory: Respiratory: Denies dyspnea Gastrointestinal: Gastrointestinal: Denies abdominal pain, Denies melena, Denies hematochezia, Denies diarrhea, Denies nausea and Denies vomiting Musculoskeletal: Musculoskeletal: Denies back pain, Denies myalgias and Denies arthralgias Integumentary/Breasts: Skin/Breast: Denies pruritus, Reports erythema, Denies rash and Reports skin swelling Neurologic: Denies headache(s), Denies loss of vision and Denies weakness Psychiatric: Psychiatric: Reports no additional psychiatric complaints Endocrine: Endocrine: Denies fatigue [facility] Past Medical History Medical History Hypocalcemia Breast cancer, right breast 2022, diagnosed age 57 Endometrial polyp Postmenopausal bleeding Prolapse of female pelvic organs BMI greater than 30 Onychomycosis Lung nodule Type 2 diabetes mellitus without complication COVID-19 History of miscarriage x2 Postsurgical hypoparathyroidism Hypothyroidism, postop Abdominal hernia Vision loss Thyroid disease Renal disease Hypercalcemia Hearing loss Angina at rest Back pain Atrial fibrillation DM w/o complication type II Hypertension Dyslipidemia CAD (coronary artery disease) Obstructive sleep apnea Paroxysmal atrial fibrillation RA (rheumatoid arthritis) (~2004) Heart disease Arthritis Heart attack Sleep apnea Thyroid disorder Kidney disease Anemia Surgical History Surgical History H/O myomectomy History of lumpectomy of right breast 04/2023 History of cholecystectomy H/O dilation and curettage delivery delivered H/O heart artery stent History of dilatation and curettage History of thyroidectomy H/O hernia repair History of cholecystectomy Delivery by section Family History Family History Mother Heart disease Father Diabetes mellitus Heart disease Grandparent Heart attack Rheumatoid arthritis Throat cancer Sibling Diabetes mellitus Heart attack COPD (chronic obstructive pulmonary disease) Lung cancer Acute myocardial infarction Other Family history of alcoholism Family history of arthritis Family history of cardiovascular disease Family history of hearing loss Hypertension Social History Social History Smoking packs per day: 0.5 Smoking cigarettes per day: 10.0 Years smoked: 37 Smoking pack-years: 18.50 Smoking status: Former smoker Tobacco type: cigarettes Smoking end date: 04/24/16 Alcohol intake: current Drinks per week: 2 Alcohol use details: rarely Substance use: never Substance use type: does not use Lack of Transportation: No Lack of Food: Never True Current Housing: Decline to Answer Concerned About Future Housing: Decline to Answer Difficulty Paying Gas/Electric Bills: Decline to Answer Difficulty Paying for Meds: Decline to Answer Currently Unemployed: Decline to Answer Education: Decline to Answer Difficulty w/ Childcare or Family Care: Decline to Answer Living arrangements: with family Spiritual care concerns: No Comments At time of signature, agree with nursing past medical, surgical, social and family history. There is no relevant family history pertinent to the presenting complaint. Exam Const: General: cooperative, healthy appearing, comfortable, no acute distress and well nourished Nutritional Appearance: well nourished Orientation/consciousness: patient oriented x3 Limitations: no limitations HENMT: Head: normal to inspection, normocephalic and atraumatic Ears: hearing grossly normal bilaterally and external ears normal Face/Nose/Sinus: Normal external nose present, normal facial exam and face symmetric Face and sinus: normal facial exam and face symmetric Mouth: Yes lip normal Eyes: General: appearance normal, both eyes and all related structures Alignment and Position: alignment normal and position normal Periorbital: periorbital findings normal Eyelids: eyelids normal Pupils: Equal, round and reactive pupils present EOM: EOMs intact bilaterally Neck: Neck: normal visual inspection, full ROM and supple Chest: Chest palpation & inspection: normal inspection of the chest Resp: Effort & Inspection: normal respiratory effort and able to speak in complete sentences Auscultation: clear to auscultation bilaterally Cardio: Rate: regular rate Rhythm: regular rhythm Heart sounds: S1 normal heart sound present and S2 normal heart sound present GI: Inspection: normal to inspection Skin: General skin exam: normal color and no rashes or lesions noted Full body images:  1. 3 x 3.5 cm area of erythema with center 1 cm x 2 cm firm area. No fluctuation or drainage. No red streaking up leg. Neuro: General: patient oriented x3 and moves all extremities Cranial nerves: Yes Equal, round and reactive pupils present Speech: normal speech Gait exam (Neuro): Normal gait present Extrem: General: normal to inspection, full ROM and no edema Psych: Appearance: grossly normal and well kempt Mental Status: mental status grossly normal Speech and movement: Normal speech and movement present Affect: normal affect Attitude: cooperative Thought process: Normal thought process present Course Course Emergency Course: Patient is aware of diagnosis, understands and agrees to treatment plan. Anticipatory guidance given. Patient agrees to follow-up as directed and is aware of reasons to seek care at the emergency department. Portions of this record may have been created with voice recognition software Level of Care: Express Care Visit Vital Signs Vital signs: Reviewed MDM - Skin/Abscess/Foreign Bdy MDM Narrative Medical decision making narrative: Discussed precautions to take since patient is going to for a and will be exposed to water. Pt well hydrated appearing, in no respiratory distress, hemodynamically stable. Recommend supportive care. The patient is stable at time of discharge the clinical impression was discussed and the patient was given the opportunity to ask questions, which were addressed as completely as possible given the information available at present. Anticipatory guidance and return to care precautions were discussed and the importance of primary care follow-up was stressed and encouraged. The patient voiced understanding of the plan, indications to return, and the need for follow-up. Exam findings show no acute concerns or changes Patient is appropriate for outpatient treatment and follow-up. Differential Diagnosis Differential diagnosis: Likely abscess of skin or subcutaneous tissue, cellulitis, insect bites and contact dermatitis Medical Records Attestation: I reviewed the patient's medical records. Discharge Plan Discharge Clinical Impression: Cellulitis Qualifiers: Site of cellulitis: extremity Site of cellulitis of extremity: lower extremity Laterality: right Qualified Code(s): L03.115 - Cellulitis of right lower limb Patient Disposition: Home Condition: Stable Instructions: Cellulitis (ED) Additional Instructions: Please follow up with your Primary Care Doctor within 48-72 hours - call for an appointment. Rest and elevate affected area; apply moist heat 3-4 times daily for 10-15 minutes. Take Motrin 600mg every 8 hours with food for pain. Please take Antibiotics as directed. If you experience any worsening redness, swelling, streaking (red lines), fever or chills please go to the ER Patient Language: Moroccan Prescriptions: New cephalexin 500 mg capsule 500 mg PO Q12H 7 Days Qty: 14 0RF No Action fluticasone propionate 50 mcg/actuation spray,suspension 1 spray intranasal DAILY Rx Instructions: administer into each nostril tramadol 50 mg tablet 50 mg PO TID PRN (Reason: Pain) Rx Instructions: PRESCRIBED BY RHEUMATOLOGY cyclobenzaprine 5 mg tablet 5 mg PO QHS PRN (Reason: Insomnia) Patient Comments: prescribed by Animal Nurse azathioprine 50 mg tablet 50 mg PO TID Patient Comments: 100mg in am, 50mg at hs magnesium oxide 400 mg magnesium capsule 800 mg PO BID aspirin [Adult Low Dose Aspirin] 81 mg tablet,delayed release (DR/EC) 81 mg PO DAILY Patient Comments: takes at hs omeprazole magnesium [Prilosec OTC] 20 mg tablet,delayed release (DR/EC) 20 mg PO DAILY loratadine [Claritin] 10 mg tablet 10 mg PO DAILY (DME) blood-glucose meter [Blood Glucose Monitoring] Kit See Rx Instructions .ROUTE .MEDSUPPLY Qty: 1 0RF Rx Instructions: As directed (DME) OneTouch Verio test strips Strip See Rx Instructions .ROUTE .COMPLEX Qty: 100 3RF Dose Instruction: USE 1 STRIP TO CHECK GLUCOSE ONCE DAILY Rx Instructions: USE 1 STRIP TO CHECK GLUCOSE ONCE DAILY levothyroxine 150 mcg tablet 150 mcg PO DAILY 90 Days Qty: 90 3RF niacin 250 mg tablet extended release 500 mg PO DAILY acetaminophen 500 mg Tablet 1,000 mg PO DAILY ferrous sulfate 325 mg (65 mg iron) Tablet 325 mg PO EVERY OTHER DAY zinc 50 mg Tablet 50 mg PO Q48H multivitamin Capsule 1 cap PO QAM (DME) lancets [OneTouch Delica Plus Lancet] 33 gauge misc See Rx Instructions .ROUTE .COMPLEX Qty: 100 1RF Dose Instruction: USE 1 TO CHECK GLUCOSE ONCE DAILY Rx Instructions: USE 1 TO CHECK GLUCOSE ONCE DAILY calcitriol 0.5 mcg capsule 0.5 mcg PO TID 90 Days Qty: 270 3RF diltiazem HCl 180 mg capsule,extended release 24hr See Rx Instructions .ROUTE .COMPLEX Qty: 90 2RF Dose Instruction: Take 1 capsule by mouth once daily Rx Instructions: Take 1 capsule by mouth once daily calcium carbonate [Calcium 500] 500 mg calcium (1,250 mg) tablet 500 mg PO BID carvedilol 12.5 mg tablet See Rx Instructions .ROUTE .COMPLEX Qty: 180 2RF Dose Instruction: TAKE 1 TABLET BY MOUTH EVERY 12 HOURS WITH A MEAL Rx Instructions: TAKE 1 TABLET BY MOUTH EVERY 12 HOURS WITH A MEAL enalapril maleate 2.5 mg tablet See Rx Instructions .ROUTE .COMPLEX Qty: 180 2RF Dose Instruction: Take 1 tablet by mouth twice daily Rx Instructions: Take 1 tablet by mouth twice daily ezetimibe 10 mg tablet See Rx Instructions .ROUTE .COMPLEX Qty: 90 2RF Dose Instruction: Take 1 tablet by mouth once daily Rx Instructions: Take 1 tablet by mouth once daily Follow-up/Referrals: Carlton Brooks DO [Primary Care Provider] - 3 Days Time of Disposition: 17:11
[2025-01-13 16:59] VITALS: BP 149/70; PULSE 85; RESP 16; TEMP 36.3; O2SAT 98
== END 2025-01-13 17:14 | disposition home or self-care (01) ==
PROVIDERS: Emergency Provider Nurse Practitioner Family; PCP Internal Medicine
DX: L03.115 Cellulitis of right lower limb (principal); E11.9 Type 2 diabetes mellitus without complications; I48.91 Unspecified atrial fibrillation; I10 Essential (primary) hypertension; E89.0 Postprocedural hypothyroidism; I25.110 Atherosclerotic heart disease of native coronary artery with unstable angina pectoris; E78.5 Hyperlipidemia, unspecified; M06.9 Rheumatoid arthritis, unspecified; I25.2 Old myocardial infarction; Z85.3 Personal history of malignant neoplasm of breast; Z90.11 Acquired absence of right breast and nipple; Z86.16 Personal history of COVID-19; Z95.5 Presence of coronary angioplasty implant and graft; Z79.82 Long term (current) use of aspirin
CPT/HCPCS: 99213; G0463

== ENCOUNTER 2025-01-30 14:47 | Outpatient (CLI) | payer OTHER, SELFPAY ==
[2025-01-30 14:58] LABS: Basophils Absolute Auto 0.1 K/mm3 (0.0-0.1); Basophils Percent Auto 0.8 % (0.2-1.2); Eosinophils Absolute Auto 0.2 K/mm3 (0-0.3); Eosinophils Percent Auto 2.3 % (0-4.4); Hematocrit 41.2 % (37.0-47.0); Immature Granulocyte Absolute 0.04 K/mm3 (0.00-0.031); Immature Granulocyte Percent A 0.6 % (0-0.5); Lymphocytes Absolute Auto 1.03 K/mm3 (0.9-3.2); Lymphocytes Percent Auto 15.8 % (18.3-44.2); Mean Corpuscular Hemoglobin 31.7 pg (26-34); Mean Corpuscular Volume 93.2 fl (80-100); Mean Platelet Volume 8.5 fl (7.4-10.4); Monocytes Absolute Auto 0.7 K/mm3 (0.1-0.6); Monocytes Percent Auto 11.4 % (2.6-8.5); Neutrophils Absolute Auto 4.5 K/mm3 (1.3-6.7); Neutrophils Percent Auto 69.1 % (45.5-73.1); Platelet Count Result 246 k/mm3 (150-375); Red Blood Count 4.42 M/mm3 (4.2-5.4); Red Cell Distribution Width 13.4 % (11.5-14.5); White Blood Count 6.5 K/mm3 (4.5-10.0)
--- OUTSIDE RECORDS SUMMARY | 2025-01-30 15:53 | XMS_ITS | Clinical Summary ---
Author Organization [facility] Address [address] [place] [address] Care Team Providers Care County Attorney Name Role Phone OlgaCarlton barnes Fantasma Primary Care Provider Allergies Active Allergy Reactions Criticality Noted Date Comments Morphine Other (See Comments) Low 08/01/2016 Xhozxqq-Syp-Nqa Reductase Inhibitors Muscle Pain Low 04/27/2018 Tetracycline [...] Encounters Date Type Department Care Team Description 01/10/2025 External Device Data [facility] Provider, Abstract 01/04/2025 External Device Data [facility] Provider, Abstract 01/03/2025 External Device Data [facility] Provider, Abstract 11/15/2024 External Device Data [facility] ABSTRACTION Provider, Abstract 11/09/2024 Orders Only [facility] Oncology and Hematology - [place] [facility] Dhiraj Parrish [address] [address] Venkata Harvey MD 11/02/2024 External Device Data [facility] ABSTRACTION Provider, [...] 3:22 PM CDT Height 165.1 cm (5' 5) 04/21/2023 2:55 PM CDT Body Mass Index 42.47 04/21/2023 2:55 PM CDT Plan of Treatment Upcoming Encounters Date Type Department Care Team (Late st Contact Info) Description 02/08/2025 3:45 PM CDT Office Visit [facility] Oncology and Hematology - [place] [address] [facility] [address] [place] [address] Venkata Harvey MD [address] [facility] [address] [place] [address] Health Maintenance Due Date Last Done Comments Pre-Diabetes and Diabetes Screening 1964 DTAP/TDAP/TD VACCINES (1 - Tdap) 1983 HPV/Cotest (21-29) 1985 CERVICAL CANCER SCREENING 1994 HPV/Cotest (30-65) 1994 PAP SMEAR 1994 BREAST CANCER SCREENING [...] Name Priority Date/Time Associated Diagnosis Comments CHG CA 15 3 Routine 11/08/2024 2:23 PM CDT CBC WITH DIFFERENTIAL Routine 11/08/2024 2:07 PM CDT COMPREHENSIVE METABOLIC PANEL Routine 11/08/2024 1:38 PM CDT from Last 3 Months Results * CHG CA 15 3 (11/08/2024 2:23 PM CDT) us Venkata Harvey MD CHG - LABORATORY Final Result * CBC WITH DIFFERENTIAL (11/08/2024 2:07 PM CDT) Blood us Venkata Harvey MD HEMATOLOGY ORDERABLES Final Res ult * COMPREHENSIVE METABOLIC PANEL (11/08/2024 1:38 PM CDT) Blood us Venkata Harvey MD CHEMISTRY ORDERABLES Final Resu lt from Last [address] [place] [address] [address] CHOICE [id number] Care Teams County Attorney Relationship Specialty Start Date End Date Carlton Brooks DO [address] [address] PCP - General Internal Medicine 04/21/23
--- OUTSIDE RECORDS SUMMARY | 2025-01-30 15:53 | XMS_ITS | CONTINUITY OF CARE DOCUMENT ---
Author Name jacob, jacob Address Unknown Organization [facility] Address [address] [facility] [address] [place] [address] Phone [phone] Care Team Providers Care Artist Relationship Manager Name Role Phone Cirilo Enriquez MD Unavailable [phone] CHI LUNA, PAKO Unavailable PAKO MIRELES MD Unavailable [phone] PROBLEMS Condition Status Date Provider Notes Atrial fibrillation active Darrell Kent Family History of Hypertension: completed - Cirilo Enriquez MD Congestive Heart Failure active [...] In-person encounter Office Visit Cirilo Enriquez MD [facility] - In-person encounter Office Visit Cirilo Enriquez MD [facility] - In-person encounter Office Visit Cirilo Enriquez MD [facility] Edema - localized - In-person encounter Office Visit Cirilo nEriquez MD [facility] - In-person encounter Office Visit Ross Hayes MD [facility] Leg pain - R knee/leg - In-person encounter Office Visit Cirilo Enriquez MD [facility] Statin Intolerant - In-person encounter Office Visit Cirilo Enriquez MD [facility] Family History of Hypertension:CARDIOMYOPATHYHTN essentialHypothyroidismObesity - In-person encounter Office Visit Cirilo Enriquez MD [facility] - In-person encounter Office Visit Cirilo Enriquez MD [facility] Office - In-person encounter Office Visit Cirilo Enriquez MD [facility] Congestive Heart FailureHyperlipidemiaHypertensionMyocardial InfarctionCARDIOMYOPATHYCADAMI anterior wallShortness [...] Tasia Figueroa respiratory rate E&M 17 /min Tasai Figueroa pulse rate 65 /min Tasia burnette weight E&M 261 [lb_av] Tasia Parada s height E&M 65 [in_i] Tasia burnette Body Mass Index (Ratio) 43.26 kg/m2 Billy [facility] blood pressure, diastolic 70 mm[Hg] Christiano vogel [place] blood pressure, systolic 118 mm[Hg] Chelo jeffries [place] oxygen saturation, oximetry 98 % [facility] E&M 16 /min [facility] 73 /min [facility] weight E&M 260 [lb_av] Killbuck [place] height E&M 65 [in_i] [place] Body Mass Index (Ratio) 42.43 kg/m2 [...] TABLET completed 8 pills on thursday - [place]buck [place] MELATONIN TABLET completed once daily - [...] E&M revi ewed - no changes required Cirlio Enriquez MD smoking, year quit 2015 Janette [...] Cirilo Enriquez MD alcohol use, type rarely Brigette In gram alcohol use yes Brigette [place] smoking, year quit 2015 [place] I ngram smoking, date started 1977 Killee n [place] cigarette use yes Brigette [place] smoking status Former smoker [place] Ingr am number of grandchildren Cirilo Enriquez [...] type Johanne red democrat ID SELF PAY [id number] ADVANCE DIRECTIVES Name Date DISCUSSED - NO [...] 1 tab daily Orders: C omplete Echo ([id number]) Cirilo Enriquez MD Cardiology follow up : C holesterol levels were fairly good on recent blood test dated 01/29/18. Starting DASH diet. Cirilo Enriquez MD Cardiology follow up : L VEF 60%, PHTN, PAP 46 01/01/2018 LVEF has imrpoved from 20% since her [place]. N eeds echo done to reassess LVF Cirilo Enriquez MD Cardiology follow up : U nlikely vascular in origin. Hx. RA. Followed by specialist. Cirilo Enriqeuz MD Cardiology follow up : A dded [...] LVEF has imrpoved from 20% since her [place]. Cirilo Enriquez MD Cardiology Cirilo Enriquez MD Cardiology: A dded Cartia XT 180mg daily and increased BB dose to Coreg 12.5 mg BID. Her updated medication list for this problem includes: Aspirin 325 Mg Oral Tablet (Aspirin) ..... One tab. daily Coreg 12.5 Mg Oral Tablet (Carvedilol) ..... One tab. twice daily Orders: E KG ([id number]) Cirilo Enriquez MD Cardiology: P rior MICHELE [...] muscle/tendon/joint cause. 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 I will check an RICK but she [...] maleate) ..... 1 tablet twice daily Cirilo Enrqiuez MD Cardiology:Myopathic pains from Crestor. Failed Lipitor before. Statin intolerant. Will leave her off of cholesterol meds and determine panel, especially since she feels a lot of her issues were related to calcium supplementation. Since she has had a prior [place] and had MICHELE to the LAD, would [...] MUGA (LVEF) Sleep Study Home DLCO - 71484 FRC - 39499 FVC - 86337 HISTORY OF PROCEDURES Procedure Date Procedure Name Provider Procedure Notes S tatus EKG Cirilo Enriquez MD completed EKG Cirilo Enriquez MD completed EKG Cirilo Enriquez MD completed EKG Cirilo Enriquez MD completed EKG Cirilo Enriquez MD completed SNOMED-CT: 885246331 269847 Current Medications Documented Cirilo Enriquez MD completed Event Monitor Darrell Kent [facility] ed EKG Cirilo Enriquez MD completed SNOMED-CT: 112831508 276562 Current Medications Documented Cirilo Enriquez MD completed Device Check - Life vest Cirilo Enriquez MD completed EKG Cirilo Enriquez MD completed SNOMED-CT: 071637224 258364 Current Medications Documented Cirilo Enriquez MD completed EKG Cirilo Enriquez MD completed SNOMED-CT: 553153389 107020 Current Medications Documented Cirilo Enriquez MD completed
[2025-01-30 16:34] LABS: Alanine Aminotransferase 28 U/L (6-35); Albumin Level 4.7 g/dL (3.5-5.1); Alkaline Phosphatase 51 U/L (38-126); Anion Gap 13 mmol/L (4-12); Aspartate Amino Transferase 59 U/L (14-36); Bilirubin,Total 0.5 mg/dL (0.2-1.3); Blood Urea Nitrogen 22 mg/dL (7-17); Calcium 8.2 mg/dL (8.4-10.2); Carbon Dioxide 22 mmol/L (22-30); Chloride 105 mmol/L (98-107); Estimated Glomerular Filt Rate > 60; Glucose 128 mg/dL (65-110); Sodium 140 mmol/L (137-145); Total Protein 8.1 g/dL (6.3-8.2)
[2025-02-01 01:23] LABS: CA 15-3 19 U/mL (<32)
== END 2025-01-30 14:48 | disposition home or self-care (01) ==
LOC: ANHLAB 14:47
PROVIDERS: PCP Internal Medicine; Visit Provider Internal Medicine Hematology & Oncology
DX: C50.911 Malignant neoplasm of unspecified site of right female breast (principal)
CPT/HCPCS: 36415; 80053; 85025; 86300

== ENCOUNTER 2025-04-01 07:56 | Outpatient (CLI) | payer OTHER, SELFPAY ==
--- OUTSIDE RECORDS SUMMARY | 2025-04-01 08:06 | XMS_ITS | Clinical Summary ---
Author Organization [facility] Address [address] [place] [address] Care Team Providers Care Med Care Manager Name Role Phone OlgaCarlton barnes Fantasma Primary Care Provider Allergies Active Allergy Reactions Criticality Noted Date Comments Morphine Other (See Comments) Low 08/01/2016 Swdksts-Avi-Gcc Reductase Inhibitors Muscle Pain Low 04/27/2018 Tetracycline [...] Encounters Date Type Department Care Team Description 03/21/2025 External Device Data [facility] ABSTRACTION Provider, Abstract 02/07/2025 External Device Data [facility] ABSTRACTION Provider, Abstract 02/07/2025 Orders Only [facility] Oncology and Hematology [place] [address] [place] [address] Venkata Harvey MD 01/31/2025 Orders Only [facility] Oncology and Hematology - [place] [address] [place] [address] Venkata Harvey MD 01/10/2025 External Device Data [facility] ABSTRACTION Provider, [...] Care Team (Late st Contact Info) Description 04/12/2025 3:45 PM CDT Office Visit [facility] Oncology and Hematology - [place] [address] [facility] [address] [place] [address] Venkata Harvey MD [address] [facility] [address] [place] [address] Health Maintenance Due Date Last [...] 2009 ZOSTER VACCINE (1 of 2) 2014 RSV VACCINE (60+ or ) (1 - Risk 60-74 years 1-dose series) 2024 INFLUENZA VACCINE (#1) 2025 HEPATITIS B VACCINES Aged Out No long er eligible based on patient's age to complete this topic Procedures Procedure Name Priority Date/Time Associated Diagnosis Comments COMPREHENSIVE METABOLIC PANEL Routine 01/30/2025 5:38 PM CDT CBC WITH DIFFERENTIAL Routine 01/30/2025 5:12 PM CDT CANCER ANTIGEN 15-3 Routine 01/30/2025 4 :52 PM CDT from Last 3 Months Results * COMPREHENSIVE METABOLIC PANEL (01/30/2025 5:38 PM CDT) Blood us Venkata Harvey MD CHEMISTRY ORDERABLES Final Resu lt * CBC WITH DIFFERENTIAL (01/30/2025 5:12 PM CDT) Blood us Venkata Harvey MD HEMATOLOGY ORDERABLES Final Res ult * CANCER ANTIGEN 15-3 (01/30/2025 4:52 PM CDT) Blood us Venkata Harvey MD CHEMISTRY ORDERABLES Final Resu lt from Last [address] [place] [address] CHOICE [id number] Care Teams Med Care Manager Relationship Specialty Start Date End Date Carlton Brooks DO [address] [address] PCP - General Internal Medicine 04/21/23
[2025-04-01 09:04] LABS: Hematocrit 41.5 % (37.0-47.0); Hemoglobin 14.0 g/dL (12.0-15.0); Immature Granulocyte Percent A 0.5 % (0-0.5); Lymphocytes Absolute Auto 0.63 K/mm3 (0.9-3.2); Mean Corpuscular HGB Conc 33.7 g/dl (32-36); Mean Corpuscular Hemoglobin 31.6 pg (26-34); Mean Corpuscular Volume 93.7 fl (80-100); Nucleated Red Blood Cells Absolute Auto 0.000 K/mm3 (0.0-0.012); Nucleated Red Blood Cells Perc 0.0 % (0.0-0.2); Platelet Count Result 238 k/mm3 (150-375); Red Blood Count 4.43 M/mm3 (4.2-5.4); White Blood Count 5.6 K/mm3 (4.5-10.0)
[2025-04-01 09:30] LABS: Alanine Aminotransferase 28 U/L (6-35); Albumin Level 4.5 g/dL (3.5-5.1); Alkaline Phosphatase 56 U/L (38-126); Anion Gap 10 mmol/L (4-12); Aspartate Amino Transferase 39 U/L (14-36); Bilirubin,Total 0.6 mg/dL (0.2-1.3); Blood Urea Nitrogen 16 mg/dL (7-17); CRP 1.3 mg/dL (<1.0); Calcium 8.4 mg/dL (8.4-10.2); Carbon Dioxide 27 mmol/L (22-30); Chloride 104 mmol/L (98-107); Estimated Glomerular Filt Rate > 60; Glucose 136 mg/dL (65-110); Potassium 4.0 mmol/L (3.4-5.0); Sodium 141 mmol/L (137-145); Total Protein 7.6 g/dL (6.3-8.2)
== END 2025-04-01 07:57 | disposition home or self-care (01) ==
LOC: ANHLAB 08:03
PROVIDERS: PCP Internal Medicine; Visit Provider Internal Medicine
DX: M17.0 Bilateral primary osteoarthritis of knee (principal); G89.29 Other chronic pain; M05.79 Rheumatoid arthritis with rheumatoid factor of multiple sites without organ or systems involvement; M54.50 Low back pain, unspecified
CPT/HCPCS: 36415; 80053; 85025; 86140

== ENCOUNTER 2025-04-06 14:35 | Outpatient (CLI) | payer OTHER, SELFPAY ==
--- OUTSIDE RECORDS SUMMARY | 2025-04-06 14:41 | XMS_ITS | Clinical Summary ---
Author Organization [facility] Address [address] [place] [address] Care Team Providers Care Shipwright Helper Name Role Phone ToddCarlton Fantasma Primary Care Provider Allergies Active Allergy Reactions Criticality Noted Date Comments Morphine Other (See Comments) Low 08/01/2016 Litbdgn-Bkd-Rhl Reductase Inhibitors Muscle Pain Low 04/27/2018 Tetracycline [...] STL ABSTRACTION Provider, Abstract 02/07/2025 Orders Only [facility] Oncology and Hematology - [place] [address] [place] [address] Venkata Harvey MD 01/31/2025 Orders Only [facility] Oncology and Hematology - [place] [address] [place] [address] Venkata Harvey MD 01/10/2025 External Device Data [...] Description 04/12/2025 3:45 PM CDT Office Visit [facility] Oncology and Hematology - [place] [address] [facility] [address] [place] [address] Venkata Harvey MD [address] [facility] [address] [place] [address] Health Maintenance Due Date Last [...] Resu lt from Last 3 Months Insurance Care Teams Shipwright Helper Relationship Specialty Start Date End Date Carlton Brooks DO [address] [phone] PCP - General Internal Medicine 04/21/23
[2025-04-06 17:17] LABS: Thyroid Stimulating Hormone 1.980 uIU/mL (0.465-4.680)
[2025-04-06 17:55] LABS: Parathyroid Intact < 14.5 pg/mL (14.5-75.2)
[2025-04-07 16:08] LABS: Calcium, Ionized 5.0 mg/dL (4.5-5.6)
== END 2025-04-06 14:36 | disposition home or self-care (01) ==
PROVIDERS: PCP Internal Medicine; Visit Provider Internal Medicine Endocrinology, Diabetes & Metabolism
DX: E03.9 Hypothyroidism, unspecified (principal); E89.2 Postprocedural hypoparathyroidism; E55.9 Vitamin D deficiency, unspecified
CPT/HCPCS: 36415; 82306; 82330; 83970; 84443

== ENCOUNTER 2025-04-11 15:35 | Outpatient (CLI) | payer OTHER, SELFPAY ==
--- OUTSIDE RECORDS SUMMARY | 2025-04-11 15:39 | XMS_ITS | Clinical Summary ---
Author Organization [facility] Address [address] [place] [address] Care Team Providers Care Buffet Attendant Name Role Phone OlgaCarlton barnes Fantasma Primary Care Provider Allergies Active Allergy Reactions Criticality Noted Date Comments Morphine Other (See Comments) Low 08/01/2016 Kctrkkj-Bco-Mfv Reductase Inhibitors Muscle Pain Low 04/27/2018 Tetracycline [...] STL ABSTRACTION Provider, Abstract 02/07/[address] [facility] Oncology and Hematology - [place] [address] [place] [address] Venkata Harvey MD 01/31/[address] [facility] Oncology and Hematology - [place] [address] [place] [address] Venkata Harvey MD 01/10/2025 External Device Data [...] Description 04/12/2025 3:45 PM CDT Office Visit [facility] Oncology and Hematology - [place] [address] [facility] [address] [place] [address] Venkata Harvey MD [address] [facility] [address] [place] [address] Health Maintenance Due Date Last [...] 1-dose series) 2024 Preventative Visit- Commercial 08/17/2024 INFLUENZA VACCINE (#1) 2025 HEPATITIS B VACCINES [...] Resu lt from Last [address] [place] [address] CHOICE [id number] Care Teams Buffet Attendant Relationship Specialty Start Date End Date Carlton Brooks DO [address] [facility] [address] [place] [phone] PCP - General Internal Medicine 04/21/23
[2025-04-11 16:32] LABS: MALB Creatinine Ratio 24.5 mg/g (0-30)
== END 2025-04-11 15:36 | disposition home or self-care (01) ==
LOC: ANHLAB 15:36
PROVIDERS: PCP Internal Medicine; Visit Provider Internal Medicine Endocrinology, Diabetes & Metabolism
DX: E11.9 Type 2 diabetes mellitus without complications (principal)
CPT/HCPCS: 82043

== ENCOUNTER 2025-04-12 16:05 | Outpatient (CLI) | payer OTHER, SELFPAY ==
--- NOTE | ~2025-04-12 | US_ITS ---
EXAMINATION: US soft tissue head and neck DATE: 04/12/2025 16:29 INDICATION: Right neck mass TECHNIQUE: Multiple grayscale and Doppler ultrasound images of the region of concern at the anterior right neck were obtained. COMPARISON: Ultrasound dated 04/12/[address] dated 01/19/2023 FINDINGS: There is a mildly hyperechoic mass extending 2.0 cm in length obliquely along the superficial margin of the right side of the thyroid cartilage which measures up to 5 mm in thickness. This appears to correspond in size, location and configuration to a hyperdense collection of soft tissue on prior CT from 01/19/2023. The hypoattenuation would be typical of thyroid tissue. No other abnormal masses or fluid collections identified. IMPRESSION: 1. 2.0 x 0.5 cm elongated hyperechoic soft tissue mass unchanged since 01/19/2023 at which time it demonstrated high attenuation typical for thyroid tissue. This would be consistent with residual/recurrent thyroid tissue post reported prior thyroidectomy and accounts for the increased activity at this region on intervening nuclear thyroid scan dated 03/05/2023. Reviewed, dictated and finalized at location A. IMPRESSION: 1. 2.0 x 0.5 cm elongated hyperechoic soft tissue mass unchanged since 01/19/2023 at which time it demonstrated high attenuation typical for thyroid tissue. Thi s would be consistent with residual/recurrent thyroid tissue post reported prio r thyroidectomy and accounts for the increased activity at this region on inter vening nuclear thyroid scan dated 03/05/2023.
== END 2025-04-12 16:06 | disposition home or self-care (01) ==
PROVIDERS: PCP Internal Medicine; Visit Provider Internal Medicine Hematology & Oncology
DX: R22.1 Localized swelling, mass and lump, neck (principal)
CPT/HCPCS: 76536

== ENCOUNTER 2025-06-19 11:16 | Outpatient (CLI) | payer OTHER, SELFPAY ==
[2025-06-19 11:26] LABS: Hematocrit 44.3 % (37.0-47.0); Hemoglobin 14.9 g/dL (12.0-15.0); Immature Granulocyte Percent A 0.5 % (0-0.5); Lymphocytes Absolute Auto 0.98 K/mm3 (0.9-3.2); Mean Corpuscular HGB Conc 33.6 g/dl (32-36); Mean Corpuscular Hemoglobin 32.5 pg (26-34); Mean Corpuscular Volume 96.5 fl (80-100); Nucleated Red Blood Cells Absolute Auto 0.000 K/mm3 (0.0-0.012); Nucleated Red Blood Cells Perc 0.0 % (0.0-0.2); Platelet Count Result 270 k/mm3 (150-375); Red Blood Count 4.59 M/mm3 (4.2-5.4); White Blood Count 7.5 K/mm3 (4.5-10.0)
--- OUTSIDE RECORDS SUMMARY | 2025-06-19 12:53 | XMS_ITS | Clinical Summary ---
Author Organization [facility] Address [address] [place] [address] Care Team Providers Care Artificial Leather Calender Operator Name Role Phone ToddCarlton Fantasma Primary Care Provider Allergies Active Allergy Reactions Criticality Noted Date Comments Morphine Other (See Comments) Low 08/01/2016 Eznriji-Njx-Wvo Reductase Inhibitors Muscle Pain Low 04/27/2018 Tetracycline [...] 30 Tablet 3 12/30/2023 Active Active Problems Problem Noted Date Diagnosed Date Malignant neoplasm of right female breast 2024 Neck mass 04/19/2025 Osteoporosis 04/19/2025 Encounters Date Type Department Care Team Description 06/07/2025 External Device Data STL ABSTRACTION Provider, Abstract 05/23/2025 External Device Data STL ABSTRACTION Provider, Abstract 04/25/2025 External Device Data STL ABSTRACTION Provider, Abstract 04/25/2025 External Device Data STL ABSTRACTION Provider, Abstract 04/25/2025 External Device Data STL ABSTRACTION Provider, Abstract 04/19/2025 4:00 PM CDT Telephone Check Up [facility] Oncology and [facility] [address] [place] [address] Melida Chicas MD Malignant neoplasm of right female breast, unspecified estrogen receptor status, unspecified site of breast ([facility]/HCC) (Primary Dx); Neck mass; Osteoporosis, unspecified osteoporosis type, unspecified pathological fracture presence 04/13/2025 Orders Only [facility] Oncology and Hematology [facility] [address] [place] [phone] Venkata Harvey MD 04/12/2025 3:45 PM CDT Office Visit [facility] Oncology and [facility] [address] [place] [address] Venkata Harvey MD Malignant neoplasm of right female breast, unspecified estrogen receptor status, unspecified site of breast (CMS/HCC) (Primary Dx); Neck mass 03/21/2025 External Device Data STL ABSTRACTION Provider, [...] Sign Reading Time Taken Comments Blood Pressure 133/76 04/12/2025 3:19 PM CDT Pulse 87 04/12/2025 3:19 PM CDT Temperature 36.6 C (97.8 F) 04/12/2025 3:19 PM CDT Respiratory Rate 12 04/12/2025 3:19 PM CDT Oxygen Saturation 100% 04/12/2025 3:19 PM CDT Inhaled Oxygen Concentration - - Weight 115.8 kg (255 lb 3.2 oz) 04/12/2025 3:19 PM CDT Height 165.1 cm (5' 5) 04/21/2023 2:55 PM CDT Body Mass Index 42.47 04/21/2023 2:55 PM CDT Plan of Treatment Upcoming Encounters Date Type Department Care Team (Late st Contact Info) Description 10/09/2025 3:45 PM AIRCRAFT MOTOR MECHANIC Office Visit [facility] Oncology and Hematology - [place] [address] [place] [address] Venkata Harvey MD [address] [place] [address] Health Maintenance Due Date Last Done Comments DIABETES ANNUAL FOOT EXAM 1982 DIABETES ANNUAL RETINAL EXAM 1982 DIABETES HBA1C Q 6 MONTHS 1982 DIABETES MICROALBUMIN ANNUAL SCREEN 1982 LDL CHOLESTEROL ANNUAL 1982 DTAP/TDAP/TD VACCINES (1 - Tdap) 1983 HPV/Cotest (21-29) 1985 CERVICAL CANCER SCREENING 1994 HPV/Cotest (30-65) 1994 PAP SMEAR 1994 BREAST CANCER SCREENING 2004 COLORECTAL SCREENING 2009 Colorectal Cancer Screening 2009 FIT-DNA Q 3 years 2009 FIT/FOBT Q 1 year 2009 Flex Sig/CT Colonography Q 5 years 2009 RSV VACCINE (60+ or ) (1 - Risk 50-74 years 1-dose series) 2014 ZOSTER VACCINE (1 of 2) 2014 INFLUENZA VACCINE (#1) 2025 HEPATITIS B VACCINES Aged Out No long er eligible based on patient's age to complete this topic Procedures Procedure Name Priority Date/Time Associated Diagnosis Comments [facility] US HEAD/NECK SOFT TISSUE Routine 04/12/2025 7:28 AM CDT from Last 3 Months Results * [facility] US HEAD/NECK SOFT TISSUE (04/12/2025 7:28 AM CDT) Venkata Harvey MD [facility] ULTRASOUND Final Result from Last [address] [place] [address] CHOICE [id number] Care Teams Artificial Leather Calender Operator Relationship Specialty Start Date End Date Carlton Brooks DO [address] [facility] [address] [place] [phone] PCP - General Internal Medicine 04/21/23
[2025-06-19 16:28] LABS: Alanine Aminotransferase 34 U/L (6-35); Albumin Level 4.9 g/dL (3.5-5.1); Alkaline Phosphatase 52 U/L (38-126); Anion Gap 11 mmol/L (4-12); Aspartate Amino Transferase 61 U/L (14-36); Bilirubin,Total 0.6 mg/dL (0.2-1.3); Blood Urea Nitrogen 25 mg/dL (7-17); Calcium 9.4 mg/dL (8.4-10.2); Carbon Dioxide 29 mmol/L (22-30); Chloride 99 mmol/L (98-107); Estimated Glomerular Filt Rate 59; Glucose 106 mg/dL (65-110); Potassium 4.6 mmol/L (3.4-5.0); Sodium 139 mmol/L (137-145); Total Protein 8.5 g/dL (6.3-8.2)
== END 2025-06-19 11:17 | disposition home or self-care (01) ==
LOC: ANHLAB 11:17
PROVIDERS: PCP Nurse Practitioner; Visit Provider Nurse Practitioner
DX: M05.79 Rheumatoid arthritis with rheumatoid factor of multiple sites without organ or systems involvement (principal); M35.00 Sjogren syndrome, unspecified
CPT/HCPCS: 36415; 80053; 85025

== ENCOUNTER 2025-06-26 06:40 | Outpatient (NON) | payer OTHER, SELFPAY ==
[2025-06-26 08:30] LABS: Total Volume 24 Hour Urine 3000 ml
[2025-06-26 08:52] LABS: Creatinine 24 Hour Urine 1.4 gm/24 (0.8-1.8)
[2025-06-27 11:08] LABS: Calcium, Urine 13.3 mg/dL (Not Estab.)
== END 2025-06-26 06:41 | disposition home or self-care (01) ==
LOC: ANHLAB 06:41
PROVIDERS: PCP Nurse Practitioner; Visit Provider Internal Medicine Endocrinology, Diabetes & Metabolism
DX: E89.2 Postprocedural hypoparathyroidism (principal)
CPT/HCPCS: 81050; 82340; 82570

== ENCOUNTER 2025-07-28 14:44 | Outpatient (CLI) | payer OTHER, SELFPAY ==
--- NOTE | ~2025-07-28 | US_ITS ---
EXAM/PROCEDURE: US pelvic complete w TV HISTORY: N95.0 - Postmenopausal bleeding COMPARISON: July 02, 2024 TECHNIQUE: Pelvic ultrasound FINDINGS: The uterus measures 9.0 x 4.2 x 5.4 cm. Endometrial stripe: 6.8 mm Fibroid appearing changes in the fundal and left side of the uterus with the largest measuring 1.6 cm. Hypoechoic area also present posterior to the endometrial canal measuring 4 x 4 x 3 mm. Right ovary: 1.8 x 1.5 x 1.4 cm. The right ovary appears normal. Left ovary: 2.2 x 1.5 x 1.7 cm. A central echogenic focus is present within the left ovary. IMPRESSION: 1. Thickened endometrial stripe for postmenopausal woman unless she is on hormone replacement therapy. Upper limits normal is 4 mm; with a woman on hormone replacement therapy, the upper limit normal is 6.8 mm. 2. Fibroid appearing changes of the uterus similar to the previous exam. Reviewed, dictated and finalized at location A. STRIAL SECURITY ANALYST IMPRESSION: 1. Thickened endometrial stripe for postmenopausal woman unless she is on hormo ne replacement therapy. Upper limits normal is 4 mm; with a woman on hormone re placement therapy, the upper limit normal is 6.8 mm. 2. Fibroid appearing changes of the uterus similar to the previous exam.
== END 2025-07-28 14:45 | disposition home or self-care (01) ==
PROVIDERS: PCP Nurse Practitioner; Visit Provider Nurse Practitioner Family
DX: N95.0 Postmenopausal bleeding (principal)
CPT/HCPCS: 76830; 76856